=== PATIENT | male | born 1930 | race Two or more races ===

== ENCOUNTER → 2016-12-25 | Outpatient (CLI) | payer MEDICARE, OTHER ==
[~2016-12-25] MED LIST: ALLO100T PO; ASPI-664 PO; AZIL1TAB2 PO; DOCU250C58 PO; EMPA1TAB11 PO; ESOM40CA PO; LEVO100T82 PO; LINA145C PO; MAGN400T27 PO; MEMA21CA PO; METH500T PO; OMEG1CAP2 PO; SIMV20TA PO; SPIR25TA PO; TRAM50TA2 PO
--- NOTE | 2016-12-26 10:24 | RADRPT ---
PROCEDURE: Limited x-ray of both lower extremities. CLINICAL INDICATION: Bilateral leg pain. TECHNIQUE: Single frontal view of both lower extremities was obtained from the hips to the calves. COMPARISON: None. FINDINGS: There are moderate degenerative changes of both knees and both hips. Right is worse than left. IMPRESSION: 1. Moderate degenerative changes of the knees and hips with right worse than left. RPTAT: QQ .Greg Fritz MD, MD Date Time Electronically viewed and signed by .Greg Fritz MD, on 12/26/2016 10:24 .R/
== END | disposition home or self-care (01) ==
LOC: HKI 09:56
PROVIDERS: ATTEND Orthopaedic Surgery
DX: M25.561 Pain in right knee (principal); M25.562 Pain in left knee; M17.0 Bilateral primary osteoarthritis of knee
CPT/HCPCS: 77073; G0463

== ENCOUNTER 2016-12-31 11:46 | Inpatient (IN) | payer MEDICARE, OTHER ==
[2016-12-26 10:54] VITALS: BMI 33.9
[~2016-12-31] VITALS: Ht 165.1 cm; Wt 89.0 kg
[2016-12-31] VITALS (25 sets, daily range): BP systolic 117–166; BP diastolic 53–78; PULSE 85–101; RESP 11–20; Ht 165.1 cm; Wt 89.0 kg
[2016-12-31] MEDS: LACTATED RINGER'S 1,000 ML IV SCH ×4 (06:00→23:16)
[~2016-12-31 11:46] MED LIST changes: -ALLO100T PO; -ASPI-664 PO; -AZIL1TAB2 PO; +BUPIVACAINE LIPOSOME/PF 266 MG/20 ML VIAL INFIL ONE; +CEFAZOLIN 2GM/50 ML (PMX) 50 ML X1 BEFORE INCISION IVPB ONE; +CELECOXIB 400 MG PO X1 DOSE PO ONE; -DOCU250C58 PO; -EMPA1TAB11 PO; -ESOM40CA PO; +EXPAREL NOTE (BUPIVICAINE LIPOSOMAL) XX SCH; -LEVO100T82 PO; -LINA145C PO; -MAGN400T27 PO; -MEMA21CA PO; -METH500T PO; -OMEG1CAP2 PO; +PAIN COCKTAIL-CEFUROXIME IRR ONE; +PREGABALIN 300 MG PO X1 PO ONE; -SIMV20TA PO; -SPIR25TA PO; -TRAM50TA2 PO; +TRANEXAMIC ACID 920 MG in SOD CHLORIDE 0.9% 100 ML IVPB ONE; +TRANEXAMIC ACID 920 MG in SOD CHLORIDE 0.9% 90.8 ML IV ONE; +oxyCODONE (CR) 10 MG TAB [oxyCONTIN] X1 DOSE PO ONE; +traMADOL 50 MG TAB X 1 DOSE PO ONE
[2016-12-31] MEDS: traMADol 50 MG TAB PO SCH ×3 (12:00→23:11)
[2016-12-31] MEDS ORDERED: LEVO100T82 PO (12:36)
[2016-12-31] MEDS ORDERED: SIMV20TA PO (12:36)
[2016-12-31] MEDS ORDERED: OMEG1CAP2 PO (12:37)
[2016-12-31] MEDS ORDERED: ASPI-664 PO (12:37)
[2016-12-31] MEDS ORDERED: ESOM40CA PO (12:37)
[2016-12-31] MEDS ORDERED: MAGN400T27 PO (12:40)
[2016-12-31] MEDS ORDERED: AZIL1TAB2 PO (12:43)
[2016-12-31] MEDS ORDERED: DOCU250C58 PO (12:44)
[2016-12-31] MEDS ORDERED: SPIR25TA PO (12:44)
[2016-12-31] MEDS ORDERED: ALLO100T PO (12:45)
[2016-12-31] MEDS ORDERED: TRAM50TA2 PO (12:46)
[2016-12-31] MEDS ORDERED: METH500T PO (12:47)
[2016-12-31] MEDS ORDERED: MEMA21CA PO (12:47)
[2016-12-31] MEDS ORDERED: LINA145C PO (12:48)
[2016-12-31] MEDS ORDERED: EMPA1TAB11 PO (12:48)
[2016-12-31] MEDS ORDERED: TRANEXAMIC ACID 900 MG in SOD CHLORIDE 0.9% 91 ML IV ONE (13:00)
[2016-12-31] MEDS ORDERED: TRANEXAMIC ACID 900 MG in SOD CHLORIDE 0.9% 100 ML IVPB ONE (13:00)
[2016-12-31] MEDS ORDERED: POLYMYXIN B 500000 UNIT INJ ONE (13:17)
[2016-12-31] MEDS ORDERED: VANCOMYCIN 1 GM INJ ONE (13:17)
[2016-12-31] MEDS ORDERED: BACITRACIN 50000 UNITS INJ ONE (13:18)
--- NOTE | 2016-12-31 13:33 | HPN ---
Date/Time of Note Date/Time of Note DATE: 12/31/16 TIME: 13:33 Interval H&P Admission Note Pt. seen H&P reviewed: No system changes No change from H&P on 12/17/16 by DINO Burger MD December 31, 2016 13:33
[2016-12-31] MEDS ORDERED: PROPOFOL 100 ML ONE (13:53)
[2016-12-31] MEDS ORDERED: METOCLOPRAMIDE 10 MG INJ ONE (13:53)
[2016-12-31] MEDS ORDERED: CEFAZOLIN 1 GM INJ ONE ×2 (13:53→14:29)
[2016-12-31] MEDS ORDERED: FENTAnyl 50 MCG/ML VIAL ONE (13:53)
[2016-12-31] MEDS ORDERED: DEXAMETHASONE 4 MG/ML 1 ML INJ ONE (13:53)
[2016-12-31] MEDS ORDERED: ETOMIDATE 20 MG INJ ONE (13:55)
[2016-12-31] MEDS ORDERED: EPHEDrine SULFATE 50 MG/5 ML SYG ONE (14:23)
[2016-12-31] MEDS ORDERED: METOCLOPRAMIDE 10 MG INJ IV PRN (15:00)
[2016-12-31] MEDS ORDERED: DIPHENHYDRAMINE 50 MG INJ IV PRN (15:00)
[2016-12-31] MEDS ORDERED: MEPERIDINE 25 MG INJ IV PRN (15:00)
[2016-12-31] MEDS ORDERED: HYDROmorphONE (0.2 MG/ML) 10ML SYG IV PRN ×3 (15:00)
[2016-12-31] MEDS ORDERED: ONDANSETRON 4 MG INJ IV PRN ×2 (15:00→17:00)
--- NOTE | 2016-12-31 16:37 | OPR ---
Date/Time of Note Date/Time of Note DATE: 12/31/16 TIME: 16:35 Operative Report Free Text/Dictation Dictation # [id number] Procedure Date: December 31, 2016 Preoperative Diagnosis Left Knee OA Postoperative Diagnosis Same Operation Performed Left TKA Surgeon: DINO ALICEA MD licensed physical therapy assistant: JAYSHREE BENITEZ PA-C Anesthesia: general, spinal Anesthesiologist: PABLO LOMBARDO MD Tourniquet Time: 70 minutes Estimated Blood Loss: 50 - 100 ml's Specimens Bone and soft tissue Tubes/Drains Hemovac x 1 Complications: None Pt Condition Post Procedure: stable Disposition: PACU DINO ALICEA MD December 31, 2016 16:36
--- NOTE | 2016-12-31 16:40 | PN ---
Date/Time of Note Date/Time of Note DATE: 12/31/16 TIME: 16:38 Assessment/Plan Lines/Catheters IV Catheter Type (from Nrsg): Peripheral IV Assessment/Plan Assessment/Plan Stable in PACU, s/p left TKA -continue Ancef until drain removed -pain meds as needed -ASA/SCDs for DVT prophylaxis -medicine team to manage diabetic control -OOB with PT -monitor drain -check AM labs d/c pickard in AM XR of the left knee is still pending at this time Subjective 24 Hr Interval Summary Stable in PACU. Moving all extremities. Denies pain. Exam/Review of Systems Vital Signs Vitals Vital Signs Date Time Temp Pulse Resp B/P Pulse Ox O2 Delivery O2 Flow Rate FiO2 12/31/16 13:17 98.3 18 119/64 97 Exam Free Text/Dictation Hemovac: minimal Dressing dry Incision clean, dry, and intact without redness or drainage Thigh soft 5/5 Quadriceps, Tibialis Anterior, EHL, Gastroc, Soleus, Peroneals Normal sensation Palpable DT/PT, CR <2 sec No distal edema JAYSHREE BENITEZ PA-C December 31, 2016 16:40
--- NOTE | 2016-12-31 16:51 | OPR ---
DATE OF OPERATION: 12/31/2016 PREOPERATIVE DIAGNOSIS: Left knee osteoarthritis. POSTOPERATIVE DIAGNOSIS: Left knee osteoarthritis. OPERATION PERFORMED: Left total knee arthroplasty. SURGEON: Dino Kenney MD MANAGER INTRANET: KENYA Saucedo COMPONENTS USED: DePuy Attune size 7 femoral component, size 7 tibial base plate, 5 mm polyethylene insert, 38 patellar button. ANESTHESIA: Spinal plus general endotracheal intubation, plus periarticular injection. ANESTHESIOLOGIST: Dr. Melgar ESTIMATED BLOOD LOSS: 50 mL INTRAVENOUS FLUIDS: 1800 mL crystalloid. SPECIMENS: Bone and soft tissue. DRAINS: Hemovac x1. COMPLICATIONS: None. DISPOSITION: The patient tolerated the procedure well and was taken to the recovery room in stable condition. INDICATIONS: The patient is an 86-year-old gentleman who has had progressive worsening pain in the left knee. The radiographs again showed severe osteoarthritis. He has failed non-surgical means of treatment to control his pain, including activity modifications, pain medications, intra-articular injections and ambulatory assist devices. Despite these measures, he has had worsening pain, and I felt the patient would benefit from a total knee arthroplasty. The risks, benefits, and alternatives of the procedure were explained in detail to the patient. I e xplained the risks of the surgery to include but not be limited to, bleeding and possible need for b lood transfusion; infection; pain; stiffness; neurovascular injury with possible numbness, weakness, and/or paralysis anywhere from the knee down to the toes; fracture; instability; dislocation; wear and/or loosening of the prosthesis and possible need for future revision; blood clots; pulmonary emb olism; and anesthetic complications such as heart attack, stroke, GI bleed, pneumonia, and/or . Ample time was allowed for the patient to ask questions, all of which were addressed and answered. The patient understood the risks involved and wished to proceed. Informed consent was signed prior to the procedure. PROCEDURE: The patient's left knee was initialed with a marking pen in the preoperative area to keyon ntify the correct operative site. The patient was brought to the operating room and transferred fro [facility] to the operating table where a spinal anesthetic was administered. The patien t was then anesthetized and intubated. A Jackson catheter was placed. A timeout was performed to con firm that the left leg was the correct operative site. The patient was given 2 g of Ancef within one hour prior to the procedure. A tourniquet was placed on the operative proximal thigh. The operati ve knee and lower extremity were prepped and draped in the usual sterile fashion. The operative low er extremity was elevated and exsanguinated with an Esmarch tourniquet. The proximal thigh tourniqu et was inflated to 300 mmHg. The knee was flexed. A midline incision was made and carried down through the subcutaneous tissue a nd fat with sharp dissection. Limited medial and lateral flaps were raised. A median parapatellar arthrotomy approach was performed. Synovial fluid was normal in color and consistency. The patella was everted and the knee flexed. There were severe tricompartmental osteoarthritic changes noted. A medial release was performed at the joint line to the midcoronal plane. The ACL and PCL and remn ants of the menisci were excised. The OrthAlign navigation device was then pinned into place on the distal femur and set to 0 degrees of varus/valgus and 3 degrees of flexion. The distal cutting blo ck was pinned into place and the oscillating saw was used to make the cut. The tibia was subluxed anteriorly. The tibial OrthAlign navigation device was then pinned into plac e such that the proximal portion of the guide was centered over the junction of the medial and middl e third of the tibial tubercle with the proximal probe placed at the posterior aspect of the ACL tasha tprint. The guide was then set to 0 degrees varus/valgus and 3 degrees of posterior slope. The cut ting block was then pinned into place and the oscillating saw was used to make the cut. The tibia w as sized. The extension gap was checked and accommodated a 5 mm spacer block with the knee in full extension. There was no varus or valgus instability. At this point, the femur was sized with the posterior referencing guide. Two holes were drilled in 3 degrees of external rotation. The two holes were in line with the transepicondylar axis, perpendi cular to Chevy's line, and in line with the tibial cutoff jig brought up with the knee flexed 90 degrees and tensed with 2 lamina spreaders, suggesting the femoral rotation was correct. The four- in-one cutting block was pinned into place. The anterior and posterior cuts and chamfer cuts were m andre with the oscillating saw. The flexion gap was checked and accommodated the 5 mm spacer block at 90 degrees. There was no varus or valgus instability, suggesting the flexion and extension gaps wer e now equal. The central box was cut out on the femur. The tibia was drilled and punched in proper rotation. Tri al components were placed into position with a trial insert. The patella was cut from 24 mm down to 15 mm and sized. Three holes were drilled and the trial button placed in position. With all the t rials now in place, the knee was taken through range of motion and came to full extension as evidenc ed by the fact that with the foot on my abdomen and axial loading, there was no tendency for the kne e to flex. The knee was able to be flexed to 125 degrees with good patellar tracking with no latera l tilt or subluxation. At this point, I was satisfied with the overall range of motion, stability, and patellar tracking. The trials were removed. The real components were opened. Two bags of cement were mixed, one with and one without premixed antibiotic. The knee was irrigated with antibiotic saline and sucked dry. Once the cement was in a doughy stage, the real components were cemented into place. The knee was held in full extension, and the patellar component was held with a patellar clamp. All excess cemen t was removed with curettes. As the cement was hardening, the synovial/capsular layer was infiltrat ed with a mixture of 150 mg of 0.5% Bupivacaine, 8 mg of Duramorph, 300 mcg of epinephrine, 30 mg of Toradol, 100 mcg of clonidine, 750 mg of cefuroxime and 86 mL of normal saline, followed by an inje ction of 266 mg of liposomal Bupivacaine. A Hemovac drain was placed in the deep portion of the wound and brought out the anterolateral thigh. Once the cement was completely hardened, the trial liner was removed, and the real insert was open ed. The tourniquet was let down, and there was good hemostasis. The knee was then irrigated with a mixture of betadine/saline and then antibiotic saline with pulsatile lavage. The real insert was i mpacted into the tibia and reduced onto to the femur. The arthrotomy was closed with a few interrupted #1 Ethibond in a pclkob-dm-dpmwa fashion, and then closed in a watertight fashion with a running #2 Stratafix suture. Knee flexion was checked against gravity and came to 125 degrees. The subcutaneous layer was irrigated and closed with 2-0 Stratafi x, and then 3-0 Vicryl and then tricia on the skin. The wound was covered with an occlusive dressi ng, and secured with cast padding and a bias dressing. The drain was secured with 3-0 nylon. The sponge and needle counts were correct at the end of the case. The patient was then awakened, ex tubated, and taken to the recovery room in stable condition. Dictated By: DINO TRIPLETT/NTS Conf#: [id number] DID#: [id number]
[2016-12-31 16:56] LABS: HEMATOCRIT 39.8 % (42.0-52.0); HEMOGLOBIN 13.1 g/dl (14.0-18.0)
[2016-12-31] MEDS ORDERED: BISACODYL 10 MG SUPP PR PRN (17:00)
[2016-12-31] MEDS ORDERED: NA PHOSPHATE/BIPHOS 133 ML ENEMA PR PRN (17:00)
[2016-12-31] MEDS ORDERED: ASPIRIN (EC) 325 MG TAB PO ONE (17:00)
[2016-12-31] MEDS ORDERED: DIPHENHYDRAMINE 25 MG CAP PO PRN (17:00)
[2016-12-31] MEDS ORDERED: HYDROmorphONE 1 MG/ML SYG IV PRN (17:00)
[2016-12-31] MEDS ORDERED: HYDROCODONE/APAP (5/325) TAB PO PRN (17:00)
[2016-12-31] MEDS ORDERED: NACL 0.9% 3 ML SYG IV SCH (17:00)
[2016-12-31] MEDS: CEFAZOLIN 2 GM/50 ML (PMX) 50 ML IVPB SCH (17:17)
--- NOTE | 2016-12-31 17:20 | RADRPT ---
PROCEDURE: XR Knee. CLINICAL INDICATION: Status post knee replacement TECHNIQUE: AP and lateral view of the left knee were obtained. The images reviewed on a PACS work station. COMPARISON: August 14, 2016 FINDINGS: Complete left knee replacement is identified. Prosthetic components are in appropriate position and alignment. No fractures or destructive lesions are observed. Surgical drain is seen in the knee. Soft tissue air is procedural in nature. IMPRESSION: Status post left knee replacement. Prosthetic components are in appropriate position and alignment. RPTAT: AA .Maurice Dunbar MD, MD Date Time Electronically viewed and signed by .Maurice Dunbar MD, MD on 12/31/2016 17:20 .P/
[2016-12-31 17:26] LABS: CREATININE 1.12 mg/dl (0.61-1.24)
[2016-12-31] MEDS: PANTOPRAZOLE (EC) 40 MG TAB PO SCH (17:46)
--- NOTE | 2016-12-31 18:59 | PREOPHP ---
DATE OF ADMISSION: 12/31/2016 TYPE OF CONSULTATION: Medical. Thank you, Dr. Kenney, for asking me to participate in medical management of this patient. REASON FOR CONSULTATION: To manage the patient's hypertension, hyperlipidemia, hypothyroidism, pre diabetes. HISTORY OF PRESENT ILLNESS: This 86-year-old man is now postop a left total knee arthroplasty by Dr Sanaz Kenney. The patient is sleeping but arouses easily to verbal stimuli and follows commands. The p josé manuel is in the room and his daughter is with him. The patient has a note on the chart from his in ternist, Dr. Nasim Dowd, which details the patient's past medical history. The patient denies a ny chest pain or shortness of breath. According to the daughter, he does snore and may have a histo ry of sleep apnea. PAST MEDICAL HISTORY: Remarkable for hypertension, gastroesophageal reflux disease, benign prostati c hypertrophy, hyperlipidemia, hypothyroidism. PAST SURGICAL HISTORY: Transurethral resection of the prostate gland. CURRENT MEDICATIONS: Include the followin. Simvastatin 20 mg a day. 2. Levothyroxine 100 mcg a day. 3. Nexium 40 mg a day. 4. Lovaza 2 grams twice a day. 5. Aspirin 81 mg a day, which was discontinued preoperatively. 6. Magnesium oxide 400 mg twice a day. 7. Astelin one inhalation 2 times a day. 8. Edarbyclor 40/25, a half tablet once a day. 9. Spironolactone 25 mg every other day. 10. Docusate sodium 250 mg twice a day. 11. Allopurinol 100 mg a day. 12. Tramadol 50 mg every 4 hours as needed for pain. 13. Robaxin 500 mg at bedtime as needed.. 14. Namenda XR 21 mg a day. 15. Synjardy 12.5/500 twice a day. 9. Linzess 140 mg once a day. ALLERGIES: NO KNOWN DRUG ALLERGIES. PHYSICAL EXAMINATION: GENERAL: At this time reveals a well-developed man in no apparent distress. He is sleeping but margo uses easily to verbal stimuli and follows simple commands. VITAL SIGNS: Temperature 98.5, pulse of 90, respirations 16, blood pressure 142/76, O2 saturation 9 6% on room air. HEENT: Head normocephalic. Eyes: Extraocular muscles intact. NOSE AND MOUTH: Normal. NECK: Supple. No neck vein distention. LUNGS: Clear to auscultation. HEART: Regular rhythm. No murmurs, gallops or rubs. ABDOMEN: Soft, nontender, no masses or megaly. EXTREMITIES: No peripheral edema. IMPRESSION: This patient is stable after surgery today. His blood pressure is slightly elevated bu t it has come down some. He seems comfortable. I will manage the patient's hypertension, diabetes mellitus, hypothyroidism, hyperlipidemia. PLAN: 1. Resume some routine medications. 2. Check labs in the morning. 3. Accu-Cheks with sliding scale of Humalog insulin coverage. 4. Postop total knee replacement protocol. 5. I will follow the patient along with you. Dictated By: MARCELO TAPIA MD, ND/ELVER Conf#: [id number] DID#: [id number]
[2016-12-31] MEDS ORDERED: DEXTROSE 50% 50 ML SYRINGE IV PRN ×2 (19:30)
[2016-12-31] MEDS ORDERED: GLUCAGON 1 MG INJ IM PRN (19:30)
[2016-12-31] MEDS ORDERED: GLUCOSE GEL 15 GRAM TUBE PO PRN ×2 (19:30)
[2016-12-31] MEDS ORDERED: GLUCOSE GEL 15 GRAM TUBE BUCCAL PRN (19:30)
[2016-12-31] MEDS ORDERED: TRANEXAMIC ACID 890 MG in SOD CHLORIDE 0.9% 100 ML IVPB ONE ×2 (20:00→23:00)
[2016-12-31] MEDS: DOCUSATE SODIUM 100 MG CAP PO SCH (20:35)
[2016-12-31] MEDS: GABAPENTIN 100 MG CAP PO SCH (20:36)
[2016-12-31] MEDS: ATORVASTATIN 10 MG TAB PO SCH (20:36)
[2016-12-31] MEDS: INSULIN ASPART [NOVOLOG] 3 ML PEN SC SCH (20:42)
[2017-01-01] MEDS: CEFAZOLIN 2 GM/50 ML (PMX) 50 ML IVPB SCH ×2 (01:10→09:23)
[2017-01-01 05:16] LABS: HEMATOCRIT 38.3 % (42.0-52.0); HEMOGLOBIN 12.8 g/dl (14.0-18.0)
[2017-01-01 05:24] LABS: POTASSIUM 4.5 mmol/L (3.5-5.1)
[2017-01-01 05:26] LABS: CREATININE 1.08 mg/dl (0.61-1.24)
[2017-01-01] MEDS: PANTOPRAZOLE (EC) 40 MG TAB PO SCH ×2 (06:11→17:58)
[2017-01-01] MEDS: LEVOTHYROXINE 100 MCG TAB PO SCH (06:11)
[2017-01-01] MEDS: traMADol 50 MG TAB PO SCH ×4 (06:12→23:28)
[2017-01-01 06:38] LABS: ADD UMIC YES; URINE BILIRUBIN (Dip) NEGATIVE (NEGATIVE); URINE BLOOD (Dip) 3+ (NEGATIVE); URINE COLOR LT. YELLOW (YELLOW); URINE KETONES (Dip) NEGATIVE (NEGATIVE); URINE LEUKOCYTE ESTERASE (Dip) NEGATIVE (NEGATIVE); URINE NITRITE (Dip) NEGATIVE (NEGATIVE); URINE TOTAL PROTEIN (Dip) 1+ (NEGATIVE); URINE UROBILINOGEN (Dip) 0.2 E.U./dL (0.1-1.0)
[2017-01-01 07:00] VITALS: BP 126/60; RESP 18
[2017-01-01] MEDS: INSULIN ASPART [NOVOLOG] 3 ML PEN SC SCH ×4 (07:50→20:57)
--- NOTE | 2017-01-01 08:29 | CONS ---
Date/Time of Note Date/Time of Note DATE: 01/01/17 TIME: 08:24 Assessment/Plan Assessment/Plan Chief Complaint/Hosp Course 1. he is 1 day post op a L TKA . He is doing well . 2. continue current medication and PT as tolerated . Problems: Consultation Date/Type/Reason Admit Date/Time December 31, 2016 at 18:10 Initial Consult Date 24 HR Interval Summary Free Text/Dictation He is 1 day post op L TKA . He is awake and responsive . Constitutional: improved, no complaints Exam/Review of Systems Vital Signs Vitals Vital Signs Date Time Temp Pulse Resp B/P Pulse Ox O2 Delivery O2 Flow Rate FiO2 01/01/17 07:00 97.9 89 18 126/60 95 12/31/16 21:00 Nasal Cannula 5.0 Intake and Output 12/31/16 12/31/16 01/01/17 15:00 23:00 07:00 Intake Total 1700 ml 108.9 ml 2128.9 ml Output Total 275 ml 740 ml Balance 1700 ml -166.1 ml 1388.9 ml Exam Constitutional: alert, oriented Respiratory: clear to auscultation, normal air movement Cardiovascular: nl pulses, regular rate and rhythm Gastrointestinal: soft Musculoskeletal: nl extremities to inspection Results Result Diagram: 01/01/17 0429 01/01/17 0424 Results 24 hrs Laboratory Tests Test 12/31/16 16:48 12/31/16 18:50 12/31/16 20:40 01/01/17 04:05 Hemoglobin 13.1 L Hematocrit 39.8 L Sodium Level 141 Potassium Level 4.0 Chloride Level 103 Carbon Dioxide Level 25 Anion Gap 17 H Blood Urea Nitrogen 26 H Creatinine 1.12 Glucose Level 175 Calcium Level 9.0 Bedside Glucose 165 176 Urine Color LT. YELLOW Urine Clarity CLEAR Urine pH 5.5 Urine Specific [place] >=1.030 H Urine Ketones NEGATIVE Urine Nitrite NEGATIVE Urine Bilirubin NEGATIVE Urine Urobilinogen 0.2 E.U./dL Urine Leukocyte Esterase NEGATIVE Urine Microscopic RBC 5-10 Urine Microscopic WBC 0-2 Urine Hemoglobin 3+ H Urine Glucose 0.1% H Urine Total Protein 1+ H Test 01/01/17 04:24 01/01/17 04:29 01/01/17 08:18 Sodium Level 140 Potassium Level 4.5 Chloride Level 100 Carbon Dioxide Level 25 Anion Gap 20 H Blood Urea Nitrogen 29 H Creatinine 1.08 Glucose Level 198 Calcium Level 9.0 Magnesium Level 1.7 Hemoglobin 12.8 L Hematocrit 38.3 L Bedside Glucose 149 Medications Medications Current Medications Allopurinol (Zyloprim) 100 mg DAILY PO ; Start 01/01/17 at 09:00 Miscellaneous Information 0.5 tab DAILY PO ; Start 01/01/17 at 09:00; Status UNV Miscellaneous Information 21 mg DAILY PO ; Start 01/01/17 at 09:00; Status UNV Atorvastatin Calcium 10 mg 10 mg DAILY@21 PO Last administered on 12/31/16 20: 36; Admin Dose 10 MG; Start 12/31/16 at 21:00 Lactated Ringer's (Lr) 1,000 ml @ 125 mls/hr Q8H IV Last administered on 23:16; Admin Dose 125 MLS/HR; Start 12/31/16 at 16:31 Tramadol HCl (Ultram) 50 mg Q6 PO Last administered on 01/01/17 06:12; Admin Dose 50 MG; Start 12/31/16 at 12:00; Stop 01/03/17 at 11:59 Acetaminophen/ Hydrocodone Bitart ([place] (5/325)) 1 tab Q4H PRN PO PAIN LEVEL 1 -3; Start 12/31/16 at 17:00 Acetaminophen/ Hydrocodone Bitart ([place] (5/325)) 2 tab Q4H PRN PO PAIN LEVEL 4 -7; Start 12/31/16 at 17:00 Hydromorphone HCl 1 mg 1 mg Q3H PRN IV PAIN LEVEL 8-10; Start 12/31/16 at 17:00 Cefazolin Sodium/ Dextrose (Ancef 2 Gm/50 ml (Pmx)) 50 ml @ 100 mls/hr Q8H IVPB Last administered on 01/01/17 01:10; Admin Dose 100 MLS/HR; Start at 17:00; Stop 01/01/17 at 09:29 Ondansetron HCl (Zofran Inj) 4 mg Q6H PRN IV NAUSEA AND/OR VOMITING; Start 12/31 at 17:00 Bisacodyl (Dulcolax Supp) 10 mg Q12H PRN CO CONSTIPATION; Start 12/31/16 at 17: 00 Magnesium Hydroxide (Milk Of Mag) 30 ml BID PRN PO CONSTIPATION; Start 12/31/16 at 17:00 Sodium Biphosphate/ Sodium Phosphate (Fleet Enema) 133 ml DAILY PRN CO CONSTIPATION; Start 12/31/16 at 17:00 Docusate Sodium (Colace) 100 mg BID PO Last administered on 12/31/16 20:35; Admin Dose 100 MG; Start 12/31/16 at 21:00 Diphenhydramine HCl (Benadryl) 25 mg Q6H PRN PO PRURITUS; Start 12/31/16 at 17: 00 Aspirin (Ecotrin) 325 mg BID PO ; Start 01/01/17 at 09:00 Pantoprazole (Protonix Tab) 40 mg BID@18 PO Last administered on 01/01/17 06:11; Admin Dose 40 MG; Start 12/31/16 at 18:00 Gabapentin (Neurontin) 100 mg TID PO Last administered on 12/31/16 20:36; Admin Dose 100 MG; Start 12/31/16 at 21:00; Stop 01/07/17 at 20:59 Miscellaneous Information 1 ea NOTE XX ; Start 12/31/16 at 19:30 Glucose (Glutose) 15 gm Q15M PRN PO DECREASED GLUCOSE; Start 12/31/16 at 19:30 Glucose (Glutose) 22.5 gm Q15M PRN PO DECREASED GLUCOSE; Start 12/31/16 at 19:30 Dextrose (D50w Syringe) 25 ml Q15M PRN IV DECREASED GLUCOSE; Start 12/31/16 at 19:30 Dextrose (D50w Syringe) 50 ml Q15M PRN IV DECREASED GLUCOSE; Start 12/31/16 at 19:30 Glucagon (Glucagen) 1 mg Q15M PRN IM DECREASED GLUCOSE; Start 12/31/16 at 19:30 Glucose (Glutose) 15 gm Q15M PRN BUCCAL DECREASED GLUCOSE; Start 12/31/16 at 19: 30 MARCELO TAPIA MD January 01, 2017 08:29
--- NOTE | 2017-01-01 08:46 | PN ---
Date/Time of Note Date/Time of Note DATE: 01/01/17 TIME: 08:45 Assessment/Plan Lines/Catheters IV Catheter Type (from Nrsg): Peripheral IV Jackson in Place (from Nrsg): No Assessment/Plan Assessment/Plan Stable POD #1, s/p left TKA -d/c abx -pain meds as needed -ASA/SCDs for DVT prophylaxis -OOB with PT -check AM labs -drain removed -d/c planning. Will likely go home upon discharge Subjective 24 Hr Interval Summary No acute overnight events. Denies any pain. Did not start PT yesterday. VSS, afebrile. Will likely go home upon discharge. Exam/Review of Systems Vital Signs Vitals Vital Signs Date Time Temp Pulse Resp B/P Pulse Ox O2 Delivery O2 Flow Rate FiO2 01/01/17 07:00 97.9 89 18 126/60 95 12/31/16 21:00 Nasal Cannula 5.0 Intake and Output 12/31/16 12/31/16 01/01/17 15:00 23:00 07:00 Intake Total 1700 ml 108.9 ml 2128.9 ml Output Total 275 ml 740 ml Balance 1700 ml -166.1 ml 1388.9 ml Exam Free Text/Dictation Hemovac: 215cc Dressing dry Incision clean, dry, and intact without redness or drainage Thigh soft 5/5 Quadriceps, Tibialis Anterior, EHL, Gastroc, Soleus, Peroneals Normal sensation Palpable DT/PT, CR <2 sec No distal edema Results Result Diagram: 01/01/17 0429 01/01/17 0424 JAYSHREE BENITEZ PA-C January 01, 2017 08:46
[2017-01-01] MEDS ORDERED: [UNRECOGNIZED DRUG - OTHER] PO SCH (09:00)
[2017-01-01] MEDS: GABAPENTIN 100 MG CAP PO SCH ×3 (09:22→20:19)
[2017-01-01] MEDS: MEMANTINE 10 MG TAB PO SCH ×2 (09:22→20:19)
[2017-01-01] MEDS: ALLOPURINOL 100 MG TAB PO SCH (09:22)
[2017-01-01] MEDS: DOCUSATE SODIUM 100 MG CAP PO SCH ×2 (09:22→20:19)
[2017-01-01] MEDS: ASPIRIN (EC) 325 MG TAB PO SCH ×2 (09:22→20:19)
[2017-01-01] MEDS: metFORMIN 500 MG TAB PO SCH ×2 (09:26→17:59)
[2017-01-01] MEDS: LACTATED RINGER'S 1,000 ML IV SCH ×2 (12:26→16:31)
[2017-01-01] MEDS: CHLORTHALIDONE 25 MG TAB PO SCH (12:27)
[2017-01-01] MEDS: LOSARTAN 25 MG TAB PO SCH (12:27)
--- NOTE | 2017-01-01 14:03 | PN ---
Date/Time of Note Date/Time of Note DATE: 01/01/17 TIME: 14:00 Assessment/Plan VTE Prophylaxis VTE Prophylaxis Intervention: ambulation Lines/Catheters IV Catheter Type (from Nrsg): Peripheral IV Urinary Cath still in place: No Subjective 24 Hr Interval Summary Free Text/Dictation Anesthesia note: A 86 year male s/p left TKA under GA and spinal pod#1 is doing fine.No N/V, itching, back pain or, headache, irritation. V/S stable, back is clean. Exam/Review of Systems Vital Signs Vitals Vital Signs Date Time Temp Pulse Resp B/P Pulse Ox O2 Delivery O2 Flow Rate FiO2 01/01/17 08:20 Nasal Cannula 4.0 01/01/17 07:00 97.9 89 18 126/60 95 Intake and Output 12/31/16 12/31/16 01/01/17 14:59 22:59 06:59 Intake Total 1700 ml 108.9 ml 2128.9 ml Output Total 275 ml 740 ml Balance 1700 ml -166.1 ml 1388.9 ml Results Result Diagram: 01/01/17 0429 01/01/17 0424 Results 24 hrs Laboratory Tests Test 12/31/16 16:48 12/31/16 18:50 12/31/16 20:40 01/01/17 04:05 Hemoglobin 13.1 L Hematocrit 39.8 L Sodium Level 141 Potassium Level 4.0 Chloride Level 103 Carbon Dioxide Level 25 Anion Gap 17 H Blood Urea Nitrogen 26 H Creatinine 1.12 Glucose Level 175 Calcium Level 9.0 Bedside Glucose 165 176 Urine Color LT. YELLOW Urine Clarity CLEAR Urine pH 5.5 Urine Specific [place] >=1.030 H Urine Ketones NEGATIVE Urine Nitrite NEGATIVE Urine Bilirubin NEGATIVE Urine Urobilinogen 0.2 E.U./dL Urine Leukocyte Esterase NEGATIVE Urine Microscopic RBC 5-10 Urine Microscopic WBC 0-2 Urine Hemoglobin 3+ H Urine Glucose 0.1% H Urine Total Protein 1+ H Test 01/01/17 04:24 01/01/17 04:29 01/01/17 08:18 01/01/17 12:07 Sodium Level 140 Potassium Level 4.5 Chloride Level 100 Carbon Dioxide Level 25 Anion Gap 20 H Blood Urea Nitrogen 29 H Creatinine 1.08 Glucose Level 198 Calcium Level 9.0 Magnesium Level 1.7 Hemoglobin 12.8 L Hematocrit 38.3 L Bedside Glucose 149 188 Medications Medications Current Medications Allopurinol (Zyloprim) 100 mg DAILY PO Last administered on 01/01/17 09:22; Admin Dose 100 MG; Start 01/01/17 at 09:00 Memantine (Namenda) 10 mg BID PO Last administered on 01/01/17 09:22; Admin Dose 10 MG; Start 01/01/17 at 09:00 Atorvastatin Calcium 10 mg 10 mg DAILY@21 PO Last administered on 12/31/16 20: 36; Admin Dose 10 MG; Start 12/31/16 at 21:00 Lactated Ringer's (Lr) 1,000 ml @ 125 mls/hr Q8H IV Last administered on 12:26; Admin Dose 125 MLS/HR; Start 12/31/16 at 16:31 Tramadol HCl (Ultram) 50 mg Q6 PO Last administered on 01/01/17 12:27; Admin Dose 50 MG; Start 12/31/16 at 12:00; Stop 01/03/17 at 11:59 Acetaminophen/ Hydrocodone Bitart ([place] (5/325)) 1 tab Q4H PRN PO PAIN LEVEL 1 -3; Start 12/31/16 at 17:00 Acetaminophen/ Hydrocodone Bitart ([place] (5/325)) 2 tab Q4H PRN PO PAIN LEVEL 4 -7; Start 12/31/16 at 17:00 Hydromorphone HCl (Dilaudid) 1 mg Q3H PRN IV PAIN LEVEL 8-10; Start 12/31/16 at 17:00 Ondansetron HCl (Zofran Inj) 4 mg Q6H PRN IV NAUSEA AND/OR VOMITING; Start 12/31 at 17:00 Bisacodyl (Dulcolax Supp) 10 mg Q12H PRN [place] CONSTIPATION; Start 12/31/16 at 17: 00 Magnesium Hydroxide (Milk Of Mag) 30 ml BID PRN PO CONSTIPATION; Start 12/31/16 at 17:00 Sodium Biphosphate/ Sodium Phosphate (Fleet Enema) 133 ml DAILY PRN [place] CONSTIPATION; Start 12/31/16 at 17:00 Docusate Sodium (Colace) 100 mg BID PO Last administered on 01/01/17 09:22; Admin Dose 100 MG; Start 12/31/16 at 21:00 Diphenhydramine HCl (Benadryl) 25 mg Q6H PRN PO PRURITUS; Start 12/31/16 at 17: 00 Aspirin (Ecotrin) 325 mg BID PO Last administered on 01/01/17 09:22; Admin Dose 325 MG; Start 01/01/17 at 09:00 Pantoprazole (Protonix Tab) 40 mg BID@06,18 PO Last administered on 01/01/17 06:11; Admin Dose 40 MG; Start 12/31/16 at 18:00 Gabapentin (Neurontin) 100 mg TID PO Last administered on 01/01/17 12:26; Admin Dose 100 MG; Start 12/31/16 at 21:00; Stop 01/07/17 at 20:59 Miscellaneous Information 1 ea NOTE XX ; Start 12/31/16 at 19:30 Glucose (Glutose) 15 gm Q15M PRN PO DECREASED GLUCOSE; Start 12/31/16 at 19:30 Glucose (Glutose) 22.5 gm Q15M PRN PO DECREASED GLUCOSE; Start 12/31/16 at 19:30 Dextrose (D50w Syringe) 25 ml Q15M PRN IV DECREASED GLUCOSE; Start 12/31/16 at 19:30 Dextrose (D50w Syringe) 50 ml Q15M PRN IV DECREASED GLUCOSE; Start 12/31/16 at 19:30 Glucagon (Glucagen) 1 mg Q15M PRN IM DECREASED GLUCOSE; Start 12/31/16 at 19:30 Glucose (Glutose) 15 gm Q15M PRN BUCCAL DECREASED GLUCOSE; Start 12/31/16 at 19: 30 Chlorthalidone (Hygroton) 12.5 mg DAILY PO Last administered on 01/01/17 12:27 ; Admin Dose 12.5 MG; Start 01/01/17 at 11:00 Losartan Potassium (Cozaar) 25 mg DAILY PO Last administered on 01/01/17 12:27 ; Admin Dose 25 MG; Start 01/01/17 at 11:00 PABLO LOMBARDO MD January 01, 2017 14:03
[2017-01-01] MEDS: MAGNESIUM HYDROXIDE 30ML CUP PO PRN (15:21)
[2017-01-01 19:55] VITALS: BP 125/70; PULSE 70; RESP 18
[2017-01-01] MEDS: ATORVASTATIN 10 MG TAB PO SCH (20:19)
[2017-01-02] MEDS: LACTATED RINGER'S 1,000 ML IV SCH ×3 (01:36→22:04)
[2017-01-02 05:33] LABS: HEMATOCRIT 36.4 % (42.0-52.0); HEMOGLOBIN 12.1 g/dl (14.0-18.0)
[2017-01-02] MEDS: PANTOPRAZOLE (EC) 40 MG TAB PO SCH ×2 (05:56→18:06)
[2017-01-02] MEDS: traMADol 50 MG TAB PO SCH ×3 (05:57→18:06)
[2017-01-02] MEDS: LEVOTHYROXINE 100 MCG TAB PO SCH (05:57)
[2017-01-02 06:04] LABS: CALCIUM 9.5 mg/dl (8.4-10.2); CREATININE 0.87 mg/dl (0.61-1.24); POTASSIUM 4.9 mmol/L (3.5-5.1)
[2017-01-02 07:26] VITALS: BP 132/62; RESP 20
[2017-01-02] MEDS: INSULIN ASPART [NOVOLOG] 3 ML PEN SC SCH ×4 (07:50→21:00)
[2017-01-02] MEDS: DOCUSATE SODIUM 100 MG CAP PO SCH ×2 (08:38→21:09)
[2017-01-02] MEDS: ASPIRIN (EC) 325 MG TAB PO SCH ×2 (08:38→21:09)
[2017-01-02] MEDS: metFORMIN 500 MG TAB PO SCH ×2 (08:38→18:05)
[2017-01-02] MEDS: LOSARTAN 25 MG TAB PO SCH (08:39)
[2017-01-02] MEDS: GABAPENTIN 100 MG CAP PO SCH ×3 (08:39→21:09)
[2017-01-02] MEDS: ALLOPURINOL 100 MG TAB PO SCH (08:39)
[2017-01-02] MEDS: CHLORTHALIDONE 25 MG TAB PO SCH (08:39)
[2017-01-02] MEDS: MEMANTINE 10 MG TAB PO SCH ×2 (08:40→21:09)
--- NOTE | 2017-01-02 09:47 | PDOCDIS ---
Discharge Instructions DIAGNOSIS Discharge Diagnosis: s/p left TKA CONDITION Patient Condition: Good HOME CARE INSTRUCTIONS: Diet Instructions: Regular ACTIVITY: Activity Restrictions: Slowly Increase Activity Rest between Activity Avoid heavy lifting Do not operate Machinery Do not operate Power Tool Avoid Heavy Housework Keep Limb Elevated Bathing Restrictions: Shower FOLLOW UP/APPOINTMENTS Appointments follow up in the office on 01/10/17 OTHER ORDERS: Other Orders: S/P TKA Physical Therapy: Three times per week at home x 2 weeks Daily in Rehab/SNF WB STATUS: WBAT 1. Strengthening exercises for both upper and un-operated lower extremities. 2. Gait training with front wheeled walker 3. Active range of motion exercises to operative knee. 4. When not working on knee range of motion exercises, distal towel roll under operative ankle/distal calf to promote full extension. 5. DO NOT PUT ANYTHING BEHIND OPERATIVE KNEE!!! 6. Quadriceps and hamstring strengthening. 7. May switch to cane in contra lateral hand 6 weeks after surgery. 8. Physical Therapy can open case if nursing is not available. 9. Use Ice Machine as instructed from date of surgery while at rest 3X/day. 10. Patient requires mobile SCDs to reduce risk of developing DVT following TKA. Patient will use the mobile SCDs for 30 days postoperatively. Bathing assistance by home health aide twice weekly if Medicare patient. Occupational Therapy: Evaluation for assistive devices and ADL training. Wound Care: Keep incision dry & covered with Tegaderm until first visit with Dr. Kenney Anticoagulation Orders: Enteric Coated Aspirin 325 mg po bid x 6 weeks from date of surgery Follow-up:Call for an appointment with Dr. Kenney in 1 week after discharged from hospital at DME Orders: BREN, 3-in-1 Commode, Polar ice machine, Mobile SCDs JAYSHREE BENITEZ PA-C January 02, 2017 09:47
[2017-01-02] MEDS ORDERED: HYDR-905 PO (09:50)
[2017-01-02] MEDS ORDERED: ASPI325T32 PO (09:50)
[2017-01-02] MEDS ORDERED: TRAM50TA2 PO (09:50)
--- NOTE | 2017-01-02 10:13 | CONS ---
Date/Time of Note Date/Time of Note DATE: 01/02/17 TIME: 10:12 Assessment/Plan Assessment/Plan Chief Complaint/Hosp Course 1. he is 2 days post op a L TKA . He is doing well . 2. continue current medication and PT as tolerated . Problems: Consultation Date/Type/Reason Admit Date/Time December 31, 2016 at 18:10 Type of Consultation: medicine 24 HR Interval Summary Constitutional: improved, no complaints Exam/Review of Systems Vital Signs Vitals Vital Signs Date Time Temp Pulse Resp B/P Pulse Ox O2 Delivery O2 Flow Rate FiO2 01/02/17 07:26 98.4 69 20 132/62 95 01/01/17 19:55 Room Air 01/01/17 08:20 4.0 Intake and Output 01/01/17 01/01/17 01/02/17 15:00 23:00 07:00 Intake Total 400 ml 2060 ml 1850 ml Output Total 900 ml 1200 ml Balance 400 ml 1160 ml 650 ml Exam Constitutional: alert, oriented, well developed Respiratory: clear to auscultation, normal air movement Cardiovascular: regular rate and rhythm Musculoskeletal: nl extremities to inspection Results Result Diagram: 01/02/17 0438 01/02/17 0438 Results 24 hrs Laboratory Tests Test 01/01/17 12:07 01/01/17 17:49 01/01/17 20:52 01/02/17 04:38 Bedside Glucose 188 166 158 Hemoglobin 12.1 L Hematocrit 36.4 L Sodium Level 134 L Potassium Level 4.9 Chloride Level 101 Carbon Dioxide Level 27 Anion Gap 11 # Blood Urea Nitrogen 25 H Creatinine 0.87 Glucose Level 130 # Calcium Level 9.5 Test 01/02/17 07:47 Bedside Glucose 110 Medications Medications Current Medications Allopurinol (Zyloprim) 100 mg DAILY PO Last administered on 01/02/17 08:39; Admin Dose 100 MG; Start 01/01/17 at 09:00 Memantine (Namenda) 10 mg BID PO Last administered on 01/02/17 08:40; Admin Dose 10 MG; Start 01/01/17 at 09:00 Atorvastatin Calcium 10 mg 10 mg DAILY@21 PO Last administered on 01/01/17 20: 19; Admin Dose 10 MG; Start 12/31/16 at 21:00 Lactated Ringer's (Lr) 1,000 ml @ 100 mls/hr Q10H IV Last administered on 01/02 01:36; Admin Dose 100 MLS/HR; Start 12/31/16 at 16:31 Tramadol HCl (Ultram) 50 mg Q6 PO Last administered on 01/02/17 05:57; Admin Dose 50 MG; Start 12/31/16 at 12:00; Stop 01/03/17 at 11:59 Acetaminophen/ Hydrocodone Bitart ([place] (5/325)) 1 tab Q4H PRN PO PAIN LEVEL 1 -3; Start 12/31/16 at 17:00 Acetaminophen/ Hydrocodone Bitart ([place] (5/325)) 2 tab Q4H PRN PO PAIN LEVEL 4 -7; Start 12/31/16 at 17:00 Hydromorphone HCl (Dilaudid) 1 mg Q3H PRN IV PAIN LEVEL 8-10; Start 12/31/16 at 17:00 Ondansetron HCl (Zofran Inj) 4 mg Q6H PRN IV NAUSEA AND/OR VOMITING; Start 12/31 at 17:00 Bisacodyl (Dulcolax Supp) 10 mg Q12H PRN [place] CONSTIPATION; Start 12/31/16 at 17: 00 Magnesium Hydroxide (Milk Of Mag) 30 ml BID PRN PO CONSTIPATION Last administered on 01/01/17 15:21; Admin Dose 30 ML; Start 12/31/16 at 17:00 Sodium Biphosphate/ Sodium Phosphate (Fleet Enema) 133 ml DAILY PRN [place] CONSTIPATION; Start 12/31/16 at 17:00 Docusate Sodium (Colace) 100 mg BID PO Last administered on 01/02/17 08:38; Admin Dose 100 MG; Start 12/31/16 at 21:00 Diphenhydramine HCl (Benadryl) 25 mg Q6H PRN PO PRURITUS; Start 12/31/16 at 17: 00 Aspirin (Ecotrin) 325 mg BID PO Last administered on 01/02/17 08:38; Admin Dose 325 MG; Start 01/01/17 at 09:00 Pantoprazole (Protonix Tab) 40 mg BID@06,18 PO Last administered on 01/02/17 05:56; Admin Dose 40 MG; Start 12/31/16 at 18:00 Gabapentin (Neurontin) 100 mg TID PO Last administered on 01/02/17 08:39; Admin Dose 100 MG; Start 12/31/16 at 21:00; Stop 01/07/17 at 20:59 Miscellaneous Information 1 ea NOTE XX ; Start 12/31/16 at 19:30 Glucose (Glutose) 15 gm Q15M PRN PO DECREASED GLUCOSE; Start 12/31/16 at 19:30 Glucose (Glutose) 22.5 gm Q15M PRN PO DECREASED GLUCOSE; Start 12/31/16 at 19:30 Dextrose (D50w Syringe) 25 ml Q15M PRN IV DECREASED GLUCOSE; Start 12/31/16 at 19:30 Dextrose (D50w Syringe) 50 ml Q15M PRN IV DECREASED GLUCOSE; Start 12/31/16 at 19:30 Glucagon (Glucagen) 1 mg Q15M PRN IM DECREASED GLUCOSE; Start 12/31/16 at 19:30 Glucose (Glutose) 15 gm Q15M PRN BUCCAL DECREASED GLUCOSE; Start 12/31/16 at 19: 30 Chlorthalidone (Hygroton) 12.5 mg DAILY PO Last administered on 01/02/17 08:39 ; Admin Dose 12.5 MG; Start 01/01/17 at 11:00 Losartan Potassium (Cozaar) 25 mg DAILY PO Last administered on 01/02/17 08:39 ; Admin Dose 25 MG; Start 01/01/17 at 11:00 MARCELO TAPIA MD January 02, 2017 10:13
[2017-01-02] MEDS: HYDROCODONE/APAP (5/325) TAB PO PRN (10:40)
[2017-01-02] MEDS: MAGNESIUM HYDROXIDE 30ML CUP PO PRN (14:56)
--- NOTE | 2017-01-02 15:56 | PN ---
Date/Time of Note Date/Time of Note DATE: 01/02/17 TIME: 15:55 Assessment/Plan Lines/Catheters IV Catheter Type (from Nrsg): Saline Lock Jackson in Place (from Nrsg): No Assessment/Plan Assessment/Plan Stable POD #2, s/p lef TKA -pain meds as needed -ASA/SCDs for DVT prophylaxis -OOB with PT -check AM labs -dressing changed -will likely discharge home tomorrow Subjective 24 Hr Interval Summary No acute overnight events. Denies significant pain. Progressing well with PT. VSS, afebrile. Will plan to go home tomorrow. Exam/Review of Systems Vital Signs Vitals Vital Signs Date Time Temp Pulse Resp B/P Pulse Ox O2 Delivery O2 Flow Rate FiO2 01/02/17 07:26 98.4 69 20 132/62 95 01/01/17 19:55 Room Air 01/01/17 08:20 4.0 Intake and Output 01/01/17 01/01/17 01/02/17 15:00 23:00 07:00 Intake Total 400 ml 2060 ml 1850 ml Output Total 900 ml 1200 ml Balance 400 ml 1160 ml 650 ml Results Result Diagram: 01/02/17 0438 01/02/17 0438 JAYSHREE BENITEZ PA-C January 02, 2017 15:56
[2017-01-02 20:29] VITALS: BP 135/67; RESP 18
[2017-01-02] MEDS: ATORVASTATIN 10 MG TAB PO SCH (21:09)
[2017-01-03] MEDS: HYDROCODONE/APAP (5/325) TAB PO PRN (04:24)
[2017-01-03] MEDS: PANTOPRAZOLE (EC) 40 MG TAB PO SCH ×2 (05:46→17:40)
[2017-01-03] MEDS: LEVOTHYROXINE 100 MCG TAB PO SCH (05:46)
[2017-01-03] MEDS: traMADol 50 MG TAB PO SCH ×2 (05:46)
[2017-01-03 05:58] LABS: HEMATOCRIT 36.9 % (42.0-52.0); HEMOGLOBIN 12.2 g/dl (14.0-18.0)
[2017-01-03 06:03] LABS: CALCIUM 9.3 mg/dl (8.4-10.2); CREATININE 0.85 mg/dl (0.61-1.24); POTASSIUM 4.6 mmol/L (3.5-5.1)
[2017-01-03] MEDS: INSULIN ASPART [NOVOLOG] 3 ML PEN SC SCH ×4 (07:50→20:49)
[2017-01-03] MEDS: LACTATED RINGER'S 1,000 ML IV SCH (08:04)
--- NOTE | 2017-01-03 08:04 | PN ---
Date/Time of Note Date/Time of Note DATE: 01/03/17 TIME: 08:02 Assessment/Plan Lines/Catheters IV Catheter Type (from Nrsg): Saline Lock Jackson in Place (from Nrsg): No Assessment/Plan Assessment/Plan POD #3, s/p left TKA -pain meds as needed -ASA/SCDs for DVT prophylaxis -OOB with PT -dressing changed -discharge home today -follow up in the office in 1 week Subjective 24 Hr Interval Summary No acute overnight events. Having some increased pain secondary to progression with PT. VSS, afebrile. Will provide pain medicine and likely discharge home today. Exam/Review of Systems Vital Signs Vitals Vital Signs Date Time Temp Pulse Resp B/P Pulse Ox O2 Delivery O2 Flow Rate FiO2 01/02/17 20:29 98.2 81 18 135/67 96 01/01/17 19:55 Room Air 01/01/17 08:20 4.0 Intake and Output 01/02/17 01/02/17 01/03/17 15:00 23:00 07:00 Intake Total 400 ml 1220 ml 500 ml Output Total 800 ml 7400 ml Balance 400 ml 420 ml -6900 ml Exam Free Text/Dictation Dressing dry Incision clean, dry, and intact without redness or drainage Thigh soft 5/5 Quadriceps, Tibialis Anterior, EHL, Gastroc, Soleus, Peroneals Normal sensation Palpable DT/PT, CR <2 sec No distal edema Results Result Diagram: 01/03/17 0500 01/03/17 0500 JAYSHREE BENITEZ PA-C January 03, 2017 08:04
[2017-01-03 08:30] VITALS: BP 129/70; RESP 18
[2017-01-03] MEDS: metFORMIN 500 MG TAB PO SCH ×2 (08:38→17:39)
[2017-01-03] MEDS: ASPIRIN (EC) 325 MG TAB PO SCH ×2 (08:38→20:48)
[2017-01-03] MEDS: GABAPENTIN 100 MG CAP PO SCH ×3 (08:39→20:48)
[2017-01-03] MEDS: CHLORTHALIDONE 25 MG TAB PO SCH (08:39)
[2017-01-03] MEDS: MEMANTINE 10 MG TAB PO SCH ×2 (08:39→20:48)
[2017-01-03] MEDS: ALLOPURINOL 100 MG TAB PO SCH (08:39)
[2017-01-03] MEDS: LOSARTAN 25 MG TAB PO SCH (08:39)
[2017-01-03] MEDS: DOCUSATE SODIUM 100 MG CAP PO SCH ×2 (08:42→20:48)
--- NOTE | 2017-01-03 10:06 | DS ---
DATE OF ADMISSION: 12/31/2016 DATE OF DISCHARGE: 01/03/2017 CONDITION UPON DISCHARGE: Stable. ADMITTING DIAGNOSIS: Left knee osteoarthritis. DISCHARGE DIAGNOSIS: Status post left total knee arthroplasty. PROCEDURE PERFORMED: Left total knee arthroplasty. HOSPITAL COURSE: This is an 86-year-old male who was seen in the clinic initially complaining of le ft knee pain. He had undergone conservative modalities unsuccessfully and it was thought he would b enefit from a left total knee arthroplasty. On 12/31/2016, the patient was admitted and taken to [facility] operating room where he underwent a left total knee arthroplasty. There were no intraoperative co mplications. The patient tolerated the procedure well. He was taken to the recovery room in stable condition. Pain was well controlled with oral pain medication. He was started on aspirin and SCDs for DVT prophylaxis. He remained hemodynamically stable and neurovascularly intact throughout his hospital stay. He began physical therapy on postoperative day 1 and was deemed stable for discharge home on postoperative day 3. Prior to discharge, the incision was inspected and noted to be clean, dry and intact. Dressing changes were done prior to the patient going home. LABORATORY ANALYSIS: Hemoglobin 12.2, hematocrit 36.9. Chemistry panel upon discharge shows sodium 129, which is slightly low. BUN was 22, otherwise chemistry panel is within normal limits. DISCHARGE MEDICATIONS: 1. [place] 7.5/325 mg. 2. Aspirin 325 mg. 3. Tramadol 50 mg. Additionally, the patient is to resume all of his normal home medications. DISCHARGE INSTRUCTIONS: The patient will be discharged home in stable condition. He is to resume a normal diet. He is weightbearing as tolerated on the left lower extremity. He will begin physical therapy with home health. He will be discharged home with the medications noted above and is to re sume all of his normal home medication. The patient is to call the office or go to the emergency ro om for any concerns including increased redness, swelling, drainage, fever or any concerns regarding the operation or site of incision. FOLLOWUP: The patient is to follow up in the office on 01/10/2017. Dictated By: JAYSHREE ZAMBRANO for DINO JETER/ELVER Conf#: [id number] DID#: [id number]
--- NOTE | 2017-01-03 13:41 | CONS ---
Date/Time of Note Date/Time of Note DATE: 01/03/17 TIME: 13:35 Assessment/Plan Assessment/Plan Chief Complaint/Hosp Course 1. he is 3 days post op a L TKA . He is doing well . He can be discharged home today if cleared by PT . 2. continue current medication and PT as tolerated . 3. hyponatremia , order urine sodium and if patient is discharged then check labs next week by visiting nurse . Problems: Consultation Date/Type/Reason Admit Date/Time December 31, 2016 at 18:10 Type of Consultation: medicine 24 HR Interval Summary Free Text/Dictation He is up walking with PT . He is having some L knee joint pain . Constitutional: improved, no complaints Exam/Review of Systems Vital Signs Vitals Vital Signs Date Time Temp Pulse Resp B/P Pulse Ox O2 Delivery O2 Flow Rate FiO2 01/03/17 08:30 98.8 100 18 129/70 93 01/01/17 19:55 Room Air 01/01/17 08:20 4.0 Intake and Output 01/02/17 01/02/17 01/03/17 15:00 23:00 07:00 Intake Total 400 ml 1220 ml 500 ml Output Total 800 ml 7400 ml Balance 400 ml 420 ml -6900 ml Exam Constitutional: alert, oriented Respiratory: clear to auscultation, normal air movement Cardiovascular: regular rate and rhythm Musculoskeletal: nl extremities to inspection Results Result Diagram: 01/03/17 0500 01/03/17 0500 Results 24 hrs Laboratory Tests Test 01/02/17 17:05 01/02/17 21:08 01/03/17 05:00 01/03/17 07:40 Bedside Glucose 118 134 135 Hemoglobin 12.2 L Hematocrit 36.9 L Sodium Level 129 L Potassium Level 4.6 Chloride Level 95 L Carbon Dioxide Level 29 Anion Gap 10 Blood Urea Nitrogen 22 H Creatinine 0.85 Glucose Level 153 Calcium Level 9.3 Medications Medications Current Medications Allopurinol (Zyloprim) 100 mg DAILY PO Last administered on 01/03/17 08:39; Admin Dose 100 MG; Start 01/01/17 at 09:00 Memantine (Namenda) 10 mg BID PO Last administered on 01/03/17 08:39; Admin Dose 10 MG; Start 01/01/17 at 09:00 Atorvastatin Calcium 10 mg 10 mg DAILY@21 PO Last administered on 01/02/17 21: 09; Admin Dose 10 MG; Start 12/31/16 at 21:00 Lactated Ringer's (Lr) 1,000 ml @ 100 mls/hr Q10H IV Last administered on 01/02 01:36; Admin Dose 100 MLS/HR; Start 12/31/16 at 16:31 Acetaminophen/ Hydrocodone Bitart ([place] (5/325)) 1 tab Q4H PRN PO PAIN LEVEL 1 -3 Last administered on 01/03/17 04:24; Admin Dose 1 TAB; Start 12/31/16 at 17: 00 Acetaminophen/ Hydrocodone Bitart ([place] (5/325)) 2 tab Q4H PRN PO PAIN LEVEL 4 -7 Last administered on 01/03/17 08:40; Admin Dose 2 TAB; Start 12/31/16 at 17: 00 Hydromorphone HCl (Dilaudid) 1 mg Q3H PRN IV PAIN LEVEL 8-10 Last administered on 01/02/17 20:22; Admin Dose 1 MG; Start 12/31/16 at 17:00 Ondansetron HCl (Zofran Inj) 4 mg Q6H PRN IV NAUSEA AND/OR VOMITING; Start 12/31 at 17:00 Bisacodyl (Dulcolax Supp) 10 mg Q12H PRN [place] CONSTIPATION Last administered on 08:38; Admin Dose 10 MG; Start 12/31/16 at 17:00 Magnesium Hydroxide (Milk Of Mag) 30 ml BID PRN PO CONSTIPATION Last administered on 01/02/17 14:56; Admin Dose 30 ML; Start 12/31/16 at 17:00 Sodium Biphosphate/ Sodium Phosphate (Fleet Enema) 133 ml DAILY PRN [place] CONSTIPATION; Start 12/31/16 at 17:00 Docusate Sodium (Colace) 100 mg BID PO Last administered on 01/03/17 08:42; Admin Dose 100 MG; Start 12/31/16 at 21:00 Diphenhydramine HCl (Benadryl) 25 mg Q6H PRN PO PRURITUS; Start 12/31/16 at 17: 00 Aspirin (Ecotrin) 325 mg BID PO Last administered on 01/03/17 08:38; Admin Dose 325 MG; Start 01/01/17 at 09:00 Pantoprazole (Protonix Tab) 40 mg BID@06,18 PO Last administered on 01/03/17 05:46; Admin Dose 40 MG; Start 12/31/16 at 18:00 Gabapentin (Neurontin) 100 mg TID PO Last administered on 01/03/17 13:21; Admin Dose 100 MG; Start 12/31/16 at 21:00; Stop 01/07/17 at 20:59 Miscellaneous Information 1 ea NOTE XX ; Start 12/31/16 at 19:30 Glucose (Glutose) 15 gm Q15M PRN PO DECREASED GLUCOSE; Start 12/31/16 at 19:30 Glucose (Glutose) 22.5 gm Q15M PRN PO DECREASED GLUCOSE; Start 12/31/16 at 19:30 Dextrose (D50w Syringe) 25 ml Q15M PRN IV DECREASED GLUCOSE; Start 12/31/16 at 19:30 Dextrose (D50w Syringe) 50 ml Q15M PRN IV DECREASED GLUCOSE; Start 12/31/16 at 19:30 Glucagon (Glucagen) 1 mg Q15M PRN IM DECREASED GLUCOSE; Start 12/31/16 at 19:30 Glucose (Glutose) 15 gm Q15M PRN BUCCAL DECREASED GLUCOSE; Start 12/31/16 at 19: 30 Chlorthalidone (Hygroton) 12.5 mg DAILY PO Last administered on 01/03/17 08:39 ; Admin Dose 12.5 MG; Start 01/01/17 at 11:00 Losartan Potassium (Cozaar) 25 mg DAILY PO Last administered on 01/03/17 08:39 ; Admin Dose 25 MG; Start 01/01/17 at 11:00 MARCELO TAPIA MD January 03, 2017 13:41
[2017-01-03 16:47] VITALS: BP 127/59; PULSE 81; RESP 15
[2017-01-03 20:28] VITALS: BP 140/70; PULSE 98; RESP 18
[2017-01-03] MEDS: ATORVASTATIN 10 MG TAB PO SCH (20:48)
[2017-01-04 05:13] LABS: ADD SCAN DIFF NO
[2017-01-04 05:29] LABS: ABNORMAL IP MESSAGE 1; BASOPHILS % 0.3 % (0.0-2.0); EOSINOPHILS # 0.1 10^3/ul (0.0-0.5); LYMPHOCYTES # 1.5 10^3/ul (0.8-2.9); LYMPHOCYTES % 10.9 % (15.0-51.0); MEAN CORPUSCULAR HEMOGLOBIN 30.5 pg (29.0-33.0); MEAN CORPUSCULAR HGB CONC 34.2 g/dl (32.0-37.0); MEAN CORPUSCULAR VOLUME 89.2 fl (82.0-101.0); MEAN PLATELET VOLUME 11.4 fl (7.4-10.4); MONOCYTE # 1.8 10^3/ul (0.3-0.9); MONOCYTES % 13.4 % (0.0-11.0); NEUTROPHIL # 10.1 10^3/ul (1.6-7.5); NEUTROPHILS % 73.9 % (39.0-77.0); PLATELET COUNT 223 10^3/UL (140-415); RED BLOOD COUNT 4.26 10^6/ul (4.70-6.10); RED CELL DISTRIBUTION WIDTH 12.6 % (11.5-14.5); WHITE BLOOD COUNT 13.6 10^3/ul (4.8-10.8)
[2017-01-04] MEDS: LEVOTHYROXINE 100 MCG TAB PO SCH (06:08)
[2017-01-04] MEDS: PANTOPRAZOLE (EC) 40 MG TAB PO SCH (06:08)
[2017-01-04 06:12] LABS: POTASSIUM 4.7 mmol/L (3.5-5.1)
[2017-01-04 06:14] LABS: CREATININE 0.91 mg/dl (0.61-1.24)
[2017-01-04 06:15] LABS: CALCIUM 9.4 mg/dl (8.4-10.2)
[2017-01-04] MEDS: metFORMIN 500 MG TAB PO SCH (07:50)
[2017-01-04 08:01] VITALS: BP 143/65; RESP 22
[2017-01-04] MEDS: INSULIN ASPART [NOVOLOG] 3 ML PEN SC SCH ×2 (08:51→11:40)
[2017-01-04] MEDS: GABAPENTIN 100 MG CAP PO SCH (09:00)
[2017-01-04] MEDS: MAGNESIUM HYDROXIDE 30ML CUP PO PRN (09:40)
[2017-01-04] MEDS: ALLOPURINOL 100 MG TAB PO SCH (10:41)
[2017-01-04] MEDS: LOSARTAN 25 MG TAB PO SCH (10:41)
[2017-01-04] MEDS: MEMANTINE 10 MG TAB PO SCH (10:41)
[2017-01-04] MEDS: DOCUSATE SODIUM 100 MG CAP PO SCH (10:41)
[2017-01-04] MEDS: ASPIRIN (EC) 325 MG TAB PO SCH (10:42)
[2017-01-04] MEDS: CHLORTHALIDONE 25 MG TAB PO SCH (10:42)
--- NOTE | 2017-01-04 11:10 | PN ---
Date/Time of Note Date/Time of Note DATE: 01/04/17 TIME: 11:05 Assessment/Plan Lines/Catheters IV Catheter Type (from Nrsg): Saline Lock Jackson in Place (from Nrsg): No Assessment/Plan Assessment/Plan Stable POD #4, s/p left TKA -pain meds as needed -ASA/SCDs for DVT prophylaxis -OOB with PT -dressing changed -d/c home today -follow up in the office as previously scheduled on 01/10/17 Subjective 24 Hr Interval Summary No acute overnight events. Pain control is much better today. VSS, afebrile. Will go home today. Exam/Review of Systems Vital Signs Vitals Vital Signs Date Time Temp Pulse Resp B/P Pulse Ox O2 Delivery O2 Flow Rate FiO2 01/04/17 08:01 99.0 93 22 143/65 95 01/03/17 20:57 Nasal Cannula 2.0 Intake and Output 01/03/17 01/03/17 01/04/17 15:00 23:00 07:00 Intake Total 960 ml 1400 ml Output Total 1000 ml 1100 ml Balance -40 ml 300 ml Exam Free Text/Dictation Dressing dry Incision clean, dry, and intact without redness or drainage Thigh soft / Quadriceps, Tibialis Anterior, EHL, Gastroc, Soleus, Peroneals Normal sensation Palpable DT/PT, CR <2 sec No distal edema Results Result Diagram: 01/04/17 0447 01/04/17 044 JAYSHREE BENITEZ PA-C January 04, 2017 11:09
[2017-01-04 12:06] VITALS: BP 131/67; PULSE 86; RESP 18
[2017-01-04] MEDS ORDERED: SOD CHLORIDE 0.45% 1,000 ML IV SCH (12:30)
--- NOTE | 2017-01-04 14:40 | CONS ---
Date/Time of Note Date/Time of Note DATE: 01/04/17 TIME: 14:38 Assessment/Plan Assessment/Plan Additional Assessment/Plan 1. he is 4 days post op a L TKA . He is doing well . discharge home today 2. continue current medication and PT as tolerated . 3. hyponatremia , order urine sodium and if patient is discharged then check labs next week by visiting nurse follow up with Dr Butts Consultation Date/Type/Reason Admit Date/Time December 31, 2016 at 18:10 Initial Consult Date Type of Consultation: medicine 24 HR Interval Summary Free Text/Dictation patient anxious to go home no acute issues home support set up stable for d/c per Dr. Dennis Constitutional: no complaints Exam/Review of Systems Vital Signs Vitals Vital Signs Date Time Temp Pulse Resp B/P Pulse Ox O2 Delivery O2 Flow Rate FiO2 01/04/17 12:06 97.6 86 18 131/67 100 Nasal Cannula 2.0 86 Intake and Output 01/03/17 01/03/17 01/04/17 14:59 22:59 06:59 Intake Total 960 ml 1400 ml Output Total 1000 ml 1100 ml Balance -40 ml 300 ml Exam Constitutional: alert, oriented Cardiovascular: regular rate and rhythm Gastrointestinal: soft Results Result Diagram: 01/04/17 0447 01/04/17 0447 Results 24 hrs Laboratory Tests Test 01/03/17 17:03 01/03/17 20:06 01/04/17 04:47 01/04/17 08:28 Bedside Glucose 158 182 148 White Blood Count 13.6 H Red Blood Count 4.26 L Hemoglobin 13.0 L Hematocrit 38.0 L Mean Corpuscular Volume 89.2 Mean Corpuscular Hemoglobin 30.5 Mean Corpuscular Hemoglobin Concent 34.2 Red Cell Distribution Width 12.6 Platelet Count 223 Mean Platelet Volume 11.4 H Neutrophils % 73.9 Lymphocytes % 10.9 L Monocytes % 13.4 H Eosinophils % 1.0 Basophils % 0.3 Nucleated Red Blood Cells % 0.0 Neutrophils # 10.1 H Lymphocytes # 1.5 Monocytes # 1.8 H Eosinophils # 0.1 Basophils # 0.0 Nucleated Red Blood Cells # 0.0 Sodium Level 132 L Potassium Level 4.7 Chloride Level 93 L Carbon Dioxide Level 26 Anion Gap 18 #H Blood Urea Nitrogen 19 Creatinine 0.91 Glucose Level 149 Calcium Level 9.4 EMILY LENNON MD January 04, 2017 14:40
== END 2017-01-04 13:06 | disposition home health service (06) | DRG 470 ==
LOC: SDS 11:46 → MS1 18:10 → UNDOFXSDCSVC 18:10 → MS1 18:10
PROVIDERS: ADMIT Orthopaedic Surgery; ATTEND Orthopaedic Surgery
PROC: 0SRD0J9 Replacement of Left Knee Joint with Synthetic Substitute, Cemented, Open Approach (ICD-10-PCS; principal; 2016-12-31 13:00)
DX: M17.12 Unilateral primary osteoarthritis, left knee (principal); E87.1 Hypo-osmolality and hyponatremia; E11.9 Type 2 diabetes mellitus without complications; I10 Essential (primary) hypertension; K21.9 Gastro-esophageal reflux disease without esophagitis; E78.5 Hyperlipidemia, unspecified; E03.9 Hypothyroidism, unspecified
CPT/HCPCS: 73560; 80048; 81001; 81003; 82962; 83735; 84300; 85014; 85018; 85025; 86850; 86900; 86901; 86920; 87081; 87086; 88304; 88311; 97110; 97116; 97162; 97530; C1776; C9290; J0171; J0690; J0697; J0735; J1100; J1170; J1815; J1885; J2274; J2765; J3010; J3370; J7120

== ENCOUNTER 2017-01-10 12:51 | Inpatient (IN) | payer MEDICARE, OTHER ==
[~2017-01-10] VITALS: Ht 165.1 cm; Wt 86.4 kg
[~2017-01-10 12:51] MED LIST changes: -CLIN-73 PO; -LATA2.5D2 BOTH EYES; -TAMS0.4C2 PO
[2017-01-10 12:53] VITALS: Ht 165.1 cm; Wt 86.4 kg
--- NOTE | 2017-01-10 13:42 | ERA ---
ER Documentation Chief Complaint Date/Time DATE: 01/10/17 TIME: 13:41 Chief Complaint FEVER & ELEVATED BLOOD COUNT S/P KNEE SURGERY 12/31/16 HPI This 86-year-old male, fever elevated blood count status post knee surgery on the ninth. Dr. Marrufo consent the patient in for evaluation and admission. Dr. Douglas is at the bedside as he will be the medicine admitting physician ROS All systems reviewed and are negative except as per history of present illness. Medications Home Meds Active Scripts Hydrocodone/Acetaminophen ([place] 7.5-325 Tablet) 1 Each Tablet, 1 EACH PO Q6 Y for PAIN, #60 TAB Prov:JAYSHREE EBNITEZ PA-C 01/02/17 Tramadol HCl (Tramadol HCl) 50 Mg Tablet, 50 MG PO Q6 for 30 Days, #60 TAB Prov:JAYSHREE BENITEZ PA-C 01/02/17 Aspirin (Aspir-Jacqueline) 325 Mg Tablet., 325 MG PO BID for 42 Days, #84 Prov:JAYSHREE BENITEZ PA-C 01/02/17 Reported Medications Linaclotide (LINZESS) 145 Mcg Capsule, 145 MCG PO DAILY, #30 CAP 12/31/16 Empagliflozin/Metformin HCl (Synjardy 12.5-500 mg Tablet) 1 Each Tablet, 1 EACH PO BID, TAB 12/31/16 Memantine* (Namenda* XR) 21 Mg Cap.spr.24, 21 MG PO DAILY, #30 TAB 12/31/16 Methocarbamol* (Robaxin*) 500 Mg Tab, 500 MG PO QHS, TAB 12/31/16 Allopurinol* (Allopurinol*) 100 Mg Tablet, 100 MG PO DAILY, TAB 12/31/16 Docusate Sodium* (Colace*) 250 Mg Capsule, 250 MG PO BID, #60 CAP 12/31/16 Spironolactone* (Aldactone*) 25 Mg Tablet, 25 MG PO EVERY OTHER DAY, #30 TAB 12/31/16 Azilsartan-Chlorthalidone (Edarbyclor) 40-25 Mg Tablet, 0.5 TAB PO DAILY, TAB 12/31/16 Magnesium Oxide* (Mag-Oxide*) 400 Mg Tablet, 400 MG PO BID, TAB 12/31/16 Esomeprazole Mag Trihydrate (Nexium) 40 Mg Capsule.dr, 40 MG PO DAILY, #30 CAP 12/31/16 Levothyroxine Sodium* (Levoxyl*) 100 Mcg Tablet, 100 MCG PO BEFORE BREAKFAST, # 30 TAB 12/31/16 Simvastatin* (Zocor*) 20 Mg Tablet, 20 MG PO QHS, #30 TAB 12/31/16 Allergies Allergies: Coded Allergies: No Known Allergy (Unverified , 12/31/16) PMhx/Soc History of Surgery: Yes (PROSTAT, HERNIA, CATARACT) Anesthesia Reaction: No Hx Neurological Disorder: No Hx Respiratory Disorders: No Hx Cardiac Disorders: Yes (HTN) Hx Psychiatric Problems: No Hx Miscellaneous Medical Probl: Yes (HTN, hyperlipidemia, hypothyroidism, pre diabetic, GERD, BPH) Hx Alcohol Use: Yes (RARE) Hx Substance Use: No Hx Tobacco Use: Yes (QUIT 25 YEARS AGO) Physical Exam Vitals Vital Signs Date Time Temp Pulse Resp B/P Pulse Ox O2 Delivery O2 Flow Rate FiO2 01/10/17 12:53 98.6 82 20 115/57 95 Physical Exam Const: [] Head: Atraumatic Eyes: Normal Conjunctiva ENT: Normal External Ears, Nose and Mouth. Neck: Full range of motion..~ No meningismus. Resp: Clear to auscultation bilaterally Cardio: Regular rate and rhythm, no murmurs Abd: Soft, non tender, non distended. Normal bowel sounds Skin: No petechiae or rashes Back: No midline or flank tenderness Ext: No cyanosis, or edema Neur: Awake and alert Psych: Normal Mood and Affect Procedures/MDM Medical decision-makin-year-old male with fever postop. Cultures have been sent off. Antibiotics and further care will be deferred to the inpatient team. Inpatient team at bedside at this time. Departure Diagnosis: Primary Impression: Fever Qualified Code: R50.9 - Fever, unspecified fever cause Condition: Stable MARIA ALEJANDRA PALMER January 10, 2017 13:42
[2017-01-10] MEDS ORDERED: TAMS0.4C2 PO (13:59)
--- NOTE | 2017-01-10 14:09 | RADRPT ---
PROCEDURE: XR Chest. CLINICAL INDICATION: Shortness of breath TECHNIQUE: Single frontal chest x-ray. COMPARISON: None available FINDINGS: Mild bibasilar atelectasis versus scarring is present. An irregular 2.2 x 1.3 cm density is present in the peripheral right lower lobe. Otherwise, the lungs are clear. No focal opacification is see n. No pneumothorax or pleural effusion is seen. Aortic arch atherosclerotic calcifications are pre sent. Otherwise, the cardiomediastinal silhouette is unremarkable. The osseous structures are lalit sly unremarkable. IMPRESSION: 1. irregular 1.3 x 2.3 cm density in the peripheral right lower lobe may represent focal infiltrate or nodule. Recommend correlation with prior outside imaging if available. Otherwise, CT chest may be obtained. 2. Aortic atherosclerosis. RPTAT: JJ .Arnaud Parra MD, Date Time Electronically viewed and signed by .Arnaud Parra MD, on 01/10/2017 14:08 .A/
[2017-01-10] MEDS ORDERED: LATA2.5D2 BOTH EYES (14:14)
[2017-01-10] MEDS: MEROPENEM 1 GM/100 ML (PMX) 100 ML IVPB SCH ×2 (14:30→21:40)
[2017-01-10 14:39] LABS: ADD SCAN DIFF NO
[2017-01-10 14:41] LABS: BASOPHIL # 0.1 10^3/ul (0.0-0.1); BASOPHILS % 0.5 % (0.0-2.0); EOSINOPHILS # 0.5 10^3/ul (0.0-0.5); EOSINOPHILS % 3.1 % (0.0-7.0); HEMATOCRIT 31.2 % (42.0-52.0); HEMOGLOBIN 10.4 g/dl (14.0-18.0); LYMPHOCYTES # 1.7 10^3/ul (0.8-2.9); LYMPHOCYTES % 10.9 % (15.0-51.0); MEAN CORPUSCULAR HEMOGLOBIN 30.1 pg (29.0-33.0); MEAN CORPUSCULAR HGB CONC 33.3 g/dl (32.0-37.0); MEAN CORPUSCULAR VOLUME 90.4 fl (82.0-101.0); MEAN PLATELET VOLUME 9.8 fl (7.4-10.4); MONOCYTE # 1.3 10^3/ul (0.3-0.9); MONOCYTES % 8.1 % (0.0-11.0); NEUTROPHIL # 11.8 10^3/ul (1.6-7.5); NEUTROPHILS % 74.7 % (39.0-77.0); PLATELET COUNT 368 10^3/UL (140-415); RED BLOOD COUNT 3.45 10^6/ul (4.70-6.10); RED CELL DISTRIBUTION WIDTH 12.7 % (11.5-14.5); WHITE BLOOD COUNT 15.7 10^3/ul (4.8-10.8)
[2017-01-10 15:00] LABS: ALBUMIN 3.6 g/dl (3.3-4.9)
[2017-01-10] MEDS ORDERED: VANCOMYCIN 1 GM (PMX) 250 ML IVPB SCH (15:00)
[2017-01-10 15:01] LABS: POTASSIUM 4.5 mmol/L (3.5-5.1)
[2017-01-10 15:03] LABS: ALBUMIN/GLOBULIN RATIO 0.97; BILIRUBIN,INDIRECT 0.2 mg/dl (0-1.1); BILIRUBIN,TOTAL 0.2 mg/dl (0.2-1.3); CREATININE 1.04 mg/dl (0.61-1.24); TOTAL PROTEIN 7.3 g/dl (6.1-8.1)
[2017-01-10 15:04] LABS: CALCIUM 9.8 mg/dl (8.4-10.2)
--- NOTE | 2017-01-10 15:41 | HP ---
DATE OF ADMISSION: 01/10/2017 IDENTIFYING DATA: The patient is an 86-year-old male being admitted to the hospital following left knee replacement and symptoms of fever and dysuria. HISTORICAL EVENTS: This patient was admitted here on 12/31/2016 and ultimately discharged on 2016 after undergoing total left knee replacement. His course in the hospital was uneventful with h is white count on 01/04/2017 being 13,600. It was approximately 3 days ago that he had the onset of dysuria and low grade fever. Urine culture and urinalysis was obtained. This revealed, as noted today, no growth. Levaquin was empirically b egun at a dose of 500 mg daily which has continued through present. His dysuria has improved. His family did think that there was accompanying blood in his urine. He has had, in the evening, some s weats. It is uncertain whether there have been chills present. He has had no vomiting, diarrhea, o r abdominal pain. There has been mild left knee pain without swelling, redness, or drainage. He wa s evaluated earlier by Dr. Alicea, and hospitalization was thought warranted. He presently denies s ubsternal chest pain, cough, wheezing, shortness of breath, nausea, vomiting, or abdominal pain. PAST MEDICAL HISTORY: 1. Hypertension. 2. Gastroesophageal reflux. 3. BPH. 4. Hyperlipidemia. 5. Hypothyroidism. MEDICATIONS: 1. Simvastatin 20 mg per day. 2. Levothyroxine 100 mcg per day. 3. Nexium 40 mg per day. 4. Lovaza 2 grams twice a day. 5. Aspirin 81 mg per day. 6. Magnesium oxide 400 mg b.i.d. 7. Astelin 1 spray twice a day in each nostril. 8. Edarbyclor 40/25 half a tablet daily. 9. Aldactone 25 mg per day. 10. Docusate sodium 250 mg twice a day. 11. Allopurinol 100 mg per day. 12. Tramadol 50 mg every 4 hours p.r.n. 13. Robaxin 500 mg as needed. 14. Namenda XR 21 mg per day. 15. Synjardy 12.5/500 twice a day. 16. Linzess 140 mg per day. PHYSICAL EXAMINATION: VITAL SIGNS: Temperature 98.6, BP 115/57, O2 sat 95%, respirations were 20. HEENT: Eyes: Extraocular muscles were full. Nose, mouth, and throat were normal. NECK: Supple. There was no jugular venous distention, thyroid enlargement, or adenopathy. Carotid s were 2+. LUNGS: Clear. HEART: Rhythm regular, no murmur. No third or fourth sound. ABDOMEN: Nontender. Liver and spleen were not palpable. No masses or tenderness were noted. EXTREMITIES: No edema. Calves nontender. The left knee was not red. It was slightly tender. The re was no drainage. IMPRESSION: Postoperative temperature with urinalysis that did not reveal an infection to be presen t, suggests knee is the primary source. PLAN: Await culture of the knee aspirate, ID to see. We will discuss with Dr. Alicea whether broad spectrum antibiotics should be started prior to culture results. We will monitor sugars and use valentino bq a.c. insulin if needed. Dictated By: KALEY DA SILVA MD MR/NTS Conf#: [id number] DID#: [id number] CC: DINO ALICEA MD;*EndCC*
[2017-01-10] MEDS ORDERED: HYDROCODONE/APAP (7.5/325) TAB PO PRN (17:00)
[2017-01-10] MEDS ORDERED: ONDANSETRON 4 MG INJ IV PRN (17:00)
[2017-01-10] MEDS ORDERED: ACETAMINOPHEN 325 MG TAB PO PRN (17:00)
[2017-01-10] MEDS ORDERED: NACL 0.9% 3 ML SYG IV SCH (17:00)
[2017-01-10] MEDS ORDERED: ZOLPIDEM 5 MG TAB PO PRN (17:00)
[2017-01-10 17:04] VITALS: BP 133/59; PULSE 68; RESP 20
[2017-01-10] MEDS: metFORMIN 500 MG TAB PO SCH (17:25)
[2017-01-10] MEDS: VALSARTAN 160 MG TAB PO SCH (18:00)
[2017-01-10] MEDS ORDERED: GLUCOSE GEL 15 GRAM TUBE PO PRN ×2 (18:00)
[2017-01-10] MEDS ORDERED: GLUCOSE GEL 15 GRAM TUBE BUCCAL PRN (18:00)
[2017-01-10] MEDS ORDERED: GLUCAGON 1 MG INJ IM PRN (18:00)
[2017-01-10] MEDS ORDERED: DEXTROSE 50% 50 ML SYRINGE IV PRN ×2 (18:00)
--- NOTE | 2017-01-10 18:11 | RADRPT ---
PROCEDURE: US Lower extremity Venous. CLINICAL INDICATION: Bilateral lower extremity edema TECHNIQUE: Multiple sonographic images of the bilateral lower extremity deep venous system was obt ained utilizing grayscale, color-flow, compressive sonography and doppler imaging with augmentation. The images were reviewed on a PACS workstation. COMPARISON: None. FINDINGS: There is normal compressibility and flow within the bilateral common femoral, femoral , posterior ti bial and popliteal veins. RPTAT: AA IMPRESSION: No sonographic evidence for deep venous thrombosis. .Philip Majano MD, MD Date Time Electronically viewed and signed by .Philip Majano MD, on 01/10/2017 18:10 .S/
--- NOTE | 2017-01-10 18:12 | RADRPT ---
PROCEDURE: US Abdomen and retroperitoneal complete. CLINICAL INDICATION: abdominal pain , fever TECHNIQUE: Multiple real-time images were acquired of the patient's abdomen and retroperitoneum ut ilizing a high resolution transducer. COMPARISON: None FINDINGS: The liver demonstrates increased echogenicity. The liver is increased in size and no focal solid le sions are seen. The portal vein is patent with normal direction of flow. No intrahepatic biliary d ilatation is seen. The liver measures 19.1 cm in length. No gallstones are identified within the gallbladder. There is no pericholecystic fluid or gallbladd er wall thickening. The common bile duct measures 5 mm in maximal dimension. The visualized portions of the pancreas are unremarkable. The tail of the pancreas is not seen. The spleen is normal in size. The spleen measures 10.3 cm in length. No free fluid is identified. The kidneys are normal in size, and demonstrate normal cortical echogenicity and cortical thickness. The right kidney measures 11.0 cm. The left kidney measures 11.2 cm. There is no evidence of hyd ronephrosis. There are no kidney stones. RPTAT: AA IMPRESSION: Mild hepatomegaly with fatty infiltration of the liver. No evidence of gallstones. .Philip Majano MD, MD Date Time Electronically viewed and signed by .Philip Majano MD, MD on 01/10/2017 18:12 .S/
[2017-01-10] MEDS: SOD CHLORIDE 0.9% 1,000 ML IV SCH (19:17)
[2017-01-10] MEDS: traMADol 50 MG TAB PO SCH (20:02)
[2017-01-10] MEDS: MEMANTINE 5 MG TAB PO SCH (20:35)
[2017-01-10 20:42] VITALS: BP 115/68; RESP 20
[2017-01-10] MEDS: AZELASTINE 30 ML NAS SPRAY NASAL SCH (21:00)
[2017-01-10] MEDS: MAGNESIUM OXIDE 400 MG TAB PO SCH (21:36)
[2017-01-10] MEDS: TAMSULOSIN (SR) 0.4 MG CAP PO SCH (21:36)
[2017-01-10] MEDS: LATANOPROST 0.005% 2.5 ML OPH BOTH EYES SCH (21:36)
[2017-01-10] MEDS: DOCUSATE SODIUM 250 MG CAP PO SCH (21:36)
[2017-01-10] MEDS: PANTOPRAZOLE (EC) 40 MG TAB PO SCH (21:43)
[2017-01-11 00:09] LABS: ADD UMIC YES; URINE BILIRUBIN (Dip) NEGATIVE (NEGATIVE); URINE BLOOD (Dip) NEGATIVE (NEGATIVE); URINE COLOR LT. YELLOW (YELLOW); URINE GLUCOSE (Dip) NEGATIVE (NEGATIVE); URINE KETONES (Dip) NEGATIVE (NEGATIVE); URINE LEUKOCYTE ESTERASE (Dip) TRACE (NEGATIVE); URINE NITRITE (Dip) NEGATIVE (NEGATIVE); URINE TOTAL PROTEIN (Dip) NEGATIVE (NEGATIVE); URINE UROBILINOGEN (Dip) 0.2 E.U./dL (0.1-1.0)
[2017-01-11 00:32] LABS: BACTERIA,URINE OCCASIONAL; SQUAMOUS EPITHELIAL CELL,UR OCCASIONAL
[2017-01-11] MEDS: traMADol 50 MG TAB PO SCH ×5 (00:55→23:58)
--- NOTE | 2017-01-11 01:00 | CONS ---
DATE OF ADMISSION: 01/10/2017 DATE OF CONSULTATION: 01/10/2017 CHIEF COMPLAINT: Fever, status post total knee arthroplasty. HISTORY OF PRESENT ILLNESS: The patient is an 86-year-old gentleman, who is about 10 days status post left total knee arthroplasty. He has had fevers over the last few days that were low grade. He has been at home, and the home health nurse has called to let us know that the knee looks benign, but that he was complaining of dysuria. Urine specimen was obtained 2 days ago and sent for routine urinalysis and culture and sensitivity. After the urine specimen was obtained, the patient was started empirically on Levaquin at 500 mg daily. The patient has continued to have low-grade temperatures since starting the Levaquin. He has had some mild swelling in the knee, but no drainage from the knee. He is walking with a walker. He has had some pain with urination. He was brought to the office today, and the knee was examined and noted to be fairly benign looking, although there was some fluid in the knee which was aspirated and looked consistent with blood. I spoke with Dr. Cruz; who was the hospitalist who saw him in the hospital, and we agreed that since he has not improved with oral antibiotics that he be admitted to the hospital for further management. PAST MEDICAL HISTORY: 1. Hypertension. 2. Gastroesophageal reflux. 3. Benign prostatic hypertrophy. 4. Elevated cholesterol. 5. Hypothyroidism. PAST SURGICAL HISTORY: 1. Left total knee arthroplasty. 2. Prostate surgery. 3. Cataracts. MEDICATIONS: 1. Simvastatin. 2. Levothyroxine. 3. Nexium. 4. Lovaza. 5. Baby aspirin. 6. Magnesium. 7. Astelin spray. 8. Edarbyclor. 9. Aldactone. 10. Colace. 11. Allopurinol. 12. Tramadol. 13. Robaxin. 14. Namenda. 15. Synjardy. 16. Linzess. ALLERGIES: NO KNOWN DRUG ALLERGIES. SOCIAL HISTORY: The patient previously smoked, but 32 years ago. He drinks socially. FAMILY HISTORY: Noncontributory. REVIEW OF SYSTEMS: GENERAL/CONSTITUTIONAL: Negative for recent fevers, chills, decreased appetite , fatigue, or unexplained weight loss. EYES/EARS/NOSE/MOUTH/THROAT: Negative for headaches, double vision, tearing, nose bleeding, colds, obstruction, discharge, dental difficulties, gingival bleeding, dentures, neck stiffness, pain, tenderness, or masses in thyroid or other areas. CARDIOVASCULAR: Negative for chest pain, palpitations, irregular heartbeat, syncope, dyspnea on exertion, orthopnea, nocturnal paroxysmal dyspnea. Elevated cholesterol. RESPIRATORY: Negative for shortness of breath, wheezing, stridor, hemoptysis, tuberculosis, fever, or night sweats. GASTROINTESTINAL: Negative for dysphagia, abdominal pain, heartburn, nausea, vomiting, hematemesis, jaundice, constipation, diarrhea, abnormal stools (marjan- colored, tarry, bloody, greasy, foul-smelling), or bright red blood per rectum. GENITOURINARY: Negative for urgency, frequency, dysuria, nocturia, hematuria, stones, infections, nephritis, hesitancy, change in size of stream, dribbling, acute retention, or incontinence. MUSCULOSKELETAL: Negative for pain, swelling, redness or heat of muscles or joints, limitation of motion, muscular weakness, atrophy, or cramps. NEUROLOGIC/PSYCHIATRIC: Negative for convulsions, paralyses, tremor, incoordination, paresthesias, difficulties with memory or speech, sensory or motor disturbances, muscular coordination (ataxia, tremor), emotional problems, anxiety, depression, previous psychiatric care, unusual perceptions, or hallucinations. HEMATOLOGIC: Negative for anemia, bleeding tendency, previous transfusions and reactions, or Rh incompatibility. ENDOCRINE: History of hypothyroidism. GENITOURINARY: History of enlarged prostate. PHYSICAL EXAMINATION: VITAL SIGNS: Temperature 98.3, blood pressure 133/59, pulse 68, respiratory rate 20, saturations 97% on room air. GENERAL APPEARANCE: Well-developed, well-nourished male in no acute distress. ORIENTATION: Alert and oriented to person, place, and time. HEENT: Normocephalic, atraumatic, sclerae anicteric, no nasal discharge, oropharynx clear, dentition is good. SKIN: Normal color, texture, and turgor. No rashes noted throughout the trunk, bilateral upper extremities, and bilateral lower extremities. NECK: Supple, nontender, without lymphadenopathy. No thyromegaly, no masses. CARDIAC: Regular rate and rhythm. LUNGS: Clear to auscultation bilaterally, with symmetric chest rise. ABDOMEN: Soft, nontender, nondistended. MUSCULOSKELETAL: The patient walks with a walker fairly well with no significant limp. The left knee reveals an incision that is clean, dry, and intact with no redness or drainage. There is a mild effusion. Knee has range of motion is 0-90 degrees and no irritability. No varus or valgus instability. He is able to straight leg raise with no extensor lag. Motor strength is 5/5 in the quadriceps, tibialis anterior, extensor hallucis longus, gastroc-soleus, and peroneals bilaterally. Sensation is intact to light touch throughout both lower extremities. There are 2+ palpable dorsalis pedis and posterior tibial pulses, with capillary refill less than 2 seconds in all 5 digits bilaterally. There is no distal edema. IMAGING: X-rays today show that the total knee arthroplasty remains well aligned and well fixed. There are no signs of loosening. PROCEDURE: After obtaining verbal consent, prepping the superolateral aspect of the left knee with Betadine, I aspirated 30 mL of blood from the knee. There is no purulent component. The patient tolerated the procedure well with no adverse reaction. LABORATORY DATA: Urine specimen, 01/08/2017, reveals 60-70 white blood cells with many bacteria, positive nitrites. The gross appearance was cloudy. Cultures are negative after 24 hours. A CBC done yesterday on 01/09/2017 revealed a white blood cell count of 19.4, hematocrit 30.1, platelet count 331, neutrophils are 80%. ASSESSMENT AND PLAN: 1. Probable urinary tract infection. 2. Status post left total knee arthroplasty. DISCUSSION: His knee itself looks benign. There was some blood in the knee, but it does not have purulent component, it has no redness or drainage. It is more concerning that his urine has 60-70 white blood cells, and he has had dysuria. We will have him admitted to the hospital for further evaluation and management. Dr. Escobedo of infectious disease has been called to consult on the patient. The patient has been started on vancomycin and meropenem for broad spectrum antibiotics. He will continue with aspirin 325 mg twice daily for DVT prophylaxis. He should ice and elevate the knee. We removed the tricia and Steri-Stripped the wound today. He will continue with physical therapy for gait training and range of motion exercises. We will continue to follow along in the hospital with Dr. Raines and Dr. Escobedo, and have Dr. Escobedo titrate the antibiotics as needed. The patient will have blood cultures drawn as well, and the fluid that we aspirated from the knee will be sent to the laboratory for cell count, differential, and culture and sensitivity. Dictated By: DINO ALICEA MD EZ/NTS Conf#: [id number] DID#: [id number] CC: NAZ ESCOBEOD MD; KALEY RAINES MD;*EndCC* MTDD
[2017-01-11 05:26] LABS: INR 1.04; PROTIME 13.6 Sec (12.2-14.2); PT RATIO 1.1
[2017-01-11 05:34] LABS: ALBUMIN 3.2 g/dl (3.3-4.9)
[2017-01-11 05:35] LABS: POTASSIUM 4.3 mmol/L (3.5-5.1)
[2017-01-11 05:37] LABS: ALBUMIN/GLOBULIN RATIO 0.94; BILIRUBIN,INDIRECT 0.3 mg/dl (0-1.1); BILIRUBIN,TOTAL 0.3 mg/dl (0.2-1.3); CREATININE 1.04 mg/dl (0.61-1.24); TOTAL PROTEIN 6.6 g/dl (6.1-8.1)
[2017-01-11 05:38] LABS: CALCIUM 9.3 mg/dl (8.4-10.2)
[2017-01-11 05:55] LABS: MAGNESIUM 2.1 mg/dl (1.7-2.5); PHOSPHORUS 4.1 mg/dl (2.5-4.9)
[2017-01-11] MEDS: MEROPENEM 1 GM/100 ML (PMX) 100 ML IVPB SCH ×3 (06:07→22:06)
[2017-01-11] MEDS: LEVOTHYROXINE 100 MCG TAB PO SCH (06:07)
[2017-01-11] MEDS: PANTOPRAZOLE (EC) 40 MG TAB PO SCH (06:07)
[2017-01-11 06:27] LABS: ADD SCAN DIFF NO
[2017-01-11 06:28] LABS: BASOPHIL # 0.1 10^3/ul (0.0-0.1); BASOPHILS % 0.5 % (0.0-2.0); EOSINOPHILS # 0.6 10^3/ul (0.0-0.5); EOSINOPHILS % 4.8 % (0.0-7.0); HEMATOCRIT 30.6 % (42.0-52.0); HEMOGLOBIN 10.1 g/dl (14.0-18.0); LYMPHOCYTES # 2.2 10^3/ul (0.8-2.9); LYMPHOCYTES % 16.8 % (15.0-51.0); MEAN CORPUSCULAR HEMOGLOBIN 30.1 pg (29.0-33.0); MEAN CORPUSCULAR VOLUME 91.1 fl (82.0-101.0); MEAN PLATELET VOLUME 9.7 fl (7.4-10.4); MONOCYTES % 7.7 % (0.0-11.0); NEUTROPHIL # 8.8 10^3/ul (1.6-7.5); NEUTROPHILS % 67.3 % (39.0-77.0); PLATELET COUNT 379 10^3/UL (140-415); RED BLOOD COUNT 3.36 10^6/ul (4.70-6.10); RED CELL DISTRIBUTION WIDTH 12.6 % (11.5-14.5)
[2017-01-11] MEDS: INSULIN ASPART [NOVOLOG] 3 ML PEN SC SCH ×3 (07:20→17:25)
[2017-01-11 07:47] VITALS: BP 127/67; RESP 17
[2017-01-11] MEDS: VALSARTAN 160 MG TAB PO SCH (08:51)
[2017-01-11] MEDS: DOCUSATE SODIUM 250 MG CAP PO SCH ×2 (08:51→20:29)
[2017-01-11] MEDS: ALLOPURINOL 100 MG TAB PO SCH (08:51)
[2017-01-11] MEDS: MAGNESIUM OXIDE 400 MG TAB PO SCH ×2 (08:51→20:28)
[2017-01-11] MEDS: metFORMIN 500 MG TAB PO SCH ×2 (08:51→08:58)
[2017-01-11] MEDS: AZELASTINE 30 ML NAS SPRAY NASAL SCH ×2 (08:51→20:16)
--- NOTE | 2017-01-11 09:13 | PN ---
Date/Time of Note Date/Time of Note DATE: 01/11/17 TIME: 09:08 Assessment/Plan Lines/Catheters IV Catheter Type (from Nrsg): Peripheral IV Jackson in Place (from Nrsg): Yes Assessment/Plan Assessment/Plan UTI s/p left TKA. -Knee looks benign -Fluid from knee yesterday mostly blood. Follow cultures for now -Urine culture pending -Continue Vanco and Meropenem for now -Dr. Escobedo to see patient -OOB with PT -Pain meds -E.C. ASA 325 mg po bid plus bilateral LE SCDs for DVT prophylaxis Subjective 24 Hr Interval Summary Resting comfortably. Feels well. Jackson put in because of retention. On Vanco and Merepenem. Exam/Review of Systems Vital Signs Vitals Vital Signs Date Time Temp Pulse Resp B/P Pulse Ox O2 Delivery O2 Flow Rate FiO2 01/11/17 07:47 98.8 69 17 127/67 96 01/10/17 17:04 Room Air Intake and Output 01/10/17 01/10/17 01/11/17 15:00 23:00 07:00 Intake Total 100 ml 940 ml Output Total 1100 ml Balance 100 ml -160 ml Exam Free Text/Dictation Incision clean, dry, and intact without redness or drainage 5/5 Tibialis Anterior, EHL, Gastroc Soleus, Peroneals Normal sensation Palpable DP/PT, CR < 2 Sec No distal edema Doppler: Negataive for DVT bilaterally Synovial fluid: Gram stain: no organisms seen, 4+ WBC Cell count: 13,142 WBC with 90% PMNs Culture: pending Urine: 10-25 WBC, trace leukocyte esterase Results Result Diagram: 01/11/17 0428 01/11/17 0428 DINO ALICEA MD January 11, 2017 09:13
[2017-01-11] MEDS: ASPIRIN (EC) 325 MG TAB PO SCH ×2 (10:14→18:28)
--- NOTE | 2017-01-11 13:59 | CONS ---
Date/Time of Note Date/Time of Note DATE: 01/11/17 TIME: 13:47 Assessment/Plan Assessment/Plan Chief Complaint/Hosp Course 1) UTI most likely continue with vanco/merrem at present await maturation of urine cx, initial one was NGTD by report only current u/a has 10-25 wbc 2) s/p L TKR aspiration of knee was done and results are pending no outward appearance of infection though continue with vanco till cx results and cell count are available 3) HTN 4) BPH pt may have urinary retention he is complaining of pain with pickard and no documented urine retention noted will d/c pickard, have nurses do bladder training and will get repeat bladder scan if no urination for 6 hours Problems: Consultation Date/Type/Reason Admit Date/Time January 10, 2017 at 13:41 Date of Consultation: January 11, 2017 Type of Consultation: ID Hx of Present Illness pt had a L TKR about 10 days ago when he got home he noticed some dysuria, urine frequency and fevers He was started on levaquin He denies SOB but has some cough No diarrhea, abd pain pt was up walking around at home and pain to L knee is overall better no rashes or other joint pains pt is complaining of pain at pickard site Past Medical History HTN, hypothyroidism, GERD, hyperlipidemia Past Surgical History L TKR Social History Smoking Status: Former smoker Exam/Review of Systems Vital Signs Vitals Vital Signs Date Time Temp Pulse Resp B/P Pulse Ox O2 Delivery O2 Flow Rate FiO2 01/11/17 07:47 98.8 69 17 127/67 96 01/10/17 17:04 Room Air Intake and Output 01/10/17 01/10/17 01/11/17 15:00 23:00 07:00 Intake Total 100 ml 940 ml Output Total 1100 ml Balance 100 ml -160 ml Exam Constitutional: alert, oriented Head: normocephalic Eyes: nl sclera ENMT: mucosa pink and moist Neck: supple Respiratory: other (crackles at R base) Cardiovascular: regular rate and rhythm Gastrointestinal: non-tender, soft Extremities: other (L knee has slight increase in heat but no appreciable redness) Results Result Diagram: 01/11/17 0428 01/11/17 0428 Results 24 hrs Laboratory Tests Test 01/10/17 14:20 01/10/17 21:28 01/10/17 23:30 01/11/17 04:28 White Blood Count 15.7 H 13.0 H Red Blood Count 3.45 L 3.36 L Hemoglobin 10.4 L 10.1 L Hematocrit 31.2 L 30.6 L Mean Corpuscular Volume 90.4 91.1 Mean Corpuscular Hemoglobin 30.1 30.1 Mean Corpuscular Hemoglobin Concent 33.3 33.0 Red Cell Distribution Width 12.7 12.6 Platelet Count 368 # 379 Mean Platelet Volume 9.8 9.7 Neutrophils % 74.7 67.3 Lymphocytes % 10.9 L 16.8 Monocytes % 8.1 7.7 Eosinophils % 3.1 4.8 Basophils % 0.5 0.5 Nucleated Red Blood Cells % 0.0 0.0 Neutrophils # 11.8 H 8.8 H Lymphocytes # 1.7 2.2 Monocytes # 1.3 H 1.0 H Eosinophils # 0.5 0.6 H Basophils # 0.1 0.1 Nucleated Red Blood Cells # 0.0 0.0 Sodium Level 136 134 L Potassium Level 4.5 4.3 Chloride Level 99 99 Carbon Dioxide Level 24 25 Anion Gap 18 H 14 Blood Urea Nitrogen 26 H 24 H Creatinine 1.04 1.04 Glucose Level 117 116 Calcium Level 9.8 9.3 Total Bilirubin 0.2 0.3 Direct Bilirubin 0.00 0.00 Indirect Bilirubin 0.2 0.3 Aspartate Amino Transf (AST/SGOT) 47 H 43 Alanine Aminotransferase (ALT/SGPT) 77 H 74 H Alkaline Phosphatase 95 85 Total Protein 7.3 6.6 Albumin 3.6 3.2 L Globulin 3.70 H 3.40 H Albumin/Globulin Ratio 0.97 0.94 Lipase 89 Bedside Glucose 114 Urine Color LT. YELLOW Urine Clarity CLEAR Urine pH 6.5 Urine Specific [place] 1.015 Urine Ketones NEGATIVE Urine Nitrite NEGATIVE Urine Bilirubin NEGATIVE Urine Urobilinogen 0.2 E.U./dL Urine Leukocyte Esterase TRACE H Urine Microscopic RBC 2-5 Urine Microscopic WBC 10-25 Urine Squamous Epithelial Cells OCCASIONAL Urine Bacteria OCCASIONAL Urine Hemoglobin NEGATIVE Urine Glucose NEGATIVE Urine Total Protein NEGATIVE Prothrombin Time 13.6 Prothrombin Time Ratio 1.1 INR International Normalized Ratio 1.04 Activated Partial Thromboplast Time 31.0 Phosphorus Level 4.1 Magnesium Level 2.1 Test 01/11/17 07:48 01/11/17 11:55 Bedside Glucose 124 128 Medications Medications Current Medications Meropenem (Merrem 1 Gm/100 ml (Pmx)) 100 ml @ 200 mls/hr Q8 IVPB Last administered on 01/11/17 06:07; Admin Dose 200 MLS/HR; Start 01/10/17 at 14:30 Docusate Sodium (Colace) 250 mg BID PO Last administered on 01/11/17 08:51; Admin Dose 250 MG; Start 01/10/17 at 21:00 Latanoprost (Xalatan) 1 drop QHS BOTH EYES Last administered on 01/10/17 21:36 ; Admin Dose 1 DROP; Start 01/10/17 at 21:00 Magnesium Oxide (Mag-Ox 400) 400 mg BID PO Last administered on 01/11/17 08:51 ; Admin Dose 400 MG; Start 01/10/17 at 21:00 Tamsulosin HCl (Flomax) 0.8 mg HS PO Last administered on 01/10/17 21:36; Admin Dose 0.8 MG; Start 01/10/17 at 21:00 Tramadol HCl (Ultram) 50 mg Q6 PO Last administered on 01/11/17 11:56; Admin Dose 50 MG; Start 01/10/17 at 18:00 Memantine (Namenda) 10 mg HS PO ; Start 01/10/17 at 21:00 Pantoprazole (Protonix Tab) 40 mg DAILY@06 PO Last administered on 01/11/17 06 :07; Admin Dose 40 MG; Start 01/10/17 at 22:00 Valsartan (Diovan) 160 mg DAILY PO Last administered on 01/11/17 08:51; Admin Dose 160 MG; Start 01/10/17 at 18:00 Allopurinol (Zyloprim) 100 mg DAILY PO Last administered on 01/11/17 08:51; Admin Dose 100 MG; Start 01/11/17 at 09:00 Azelastine HCl 2 spray 2 spray BID NASAL ; Start 01/10/17 at 21:00 Sodium Chloride (NS) 1,000 ml @ 40 mls/hr Q24H IV Last administered on 19:17; Admin Dose 40 MLS/HR; Start 01/10/17 at 17:00 Ondansetron HCl (Zofran Inj) 4 mg Q6H PRN IV NAUSEA AND/OR VOMITING; Start at 17:00 Acetaminophen (Tylenol Tab) 650 mg Q6H PRN PO PAIN LEVEL 1-3 OR FEVER; Start at 17:00 Zolpidem Tartrate (Ambien) 5 mg QHS PRN PO SLEEP; Start 01/10/17 at 17:00 Acetaminophen/ Hydrocodone Bitart ([place] (7.5-325)) 1 tab Q6H PRN PO PAIN LEVEL 4-6; Start 01/10/17 at 17:00 Miscellaneous Information 1 ea NOTE XX ; Start 01/10/17 at 18:00 Glucose (Glutose) 15 gm Q15M PRN PO DECREASED GLUCOSE; Start 01/10/17 at 18:00 Glucose (Glutose) 22.5 gm Q15M PRN PO DECREASED GLUCOSE; Start 01/10/17 at 18: 00 Dextrose (D50w Syringe) 25 ml Q15M PRN IV DECREASED GLUCOSE; Start 01/10/17 at 18:00 Dextrose (D50w Syringe) 50 ml Q15M PRN IV DECREASED GLUCOSE; Start 01/10/17 at 18:00 Glucagon (Glucagen) 1 mg Q15M PRN IM DECREASED GLUCOSE; Start 01/10/17 at 18:00 Glucose (Glutose) 15 gm Q15M PRN BUCCAL DECREASED GLUCOSE; Start 01/10/17 at 18 :00 NAZ DEL RIO MD January 11, 2017 13:59
[2017-01-11] MEDS ORDERED: VANCOMYCIN IV PER PHARMACY XX SCH (14:30)
--- NOTE | 2017-01-11 15:15 | CONS ---
Date/Time of Note Date/Time of Note DATE: 01/11/17 TIME: 15:08 Consult Date/Type/Reason Admit Date/Time January 10, 2017 at 13:41 Initial Consult Date 01/11/17 Type of Consultation: Medicine Reason for Consultation Leukocytosis, transaminitis, BPH, HTN, hypothyroid, gout, DMII Ordering Provider: DINO ALICEA MD Subjective Patient doing well. Feeling better after IV abx. Denies fevers, chills, nausea, vomiting, dysuria, diarrhea, abdominal pain, chest pain. Does endorse constipation. Objective Vital Signs Date Time Temp Pulse Resp B/P Pulse Ox O2 Delivery O2 Flow Rate FiO2 01/11/17 07:47 98.8 69 17 127/67 96 01/10/17 17:04 Room Air Intake and Output 01/10/17 01/10/17 01/11/17 15:00 23:00 07:00 Intake Total 100 ml 940 ml Output Total 1100 ml Balance 100 ml -160 ml Exam Gen-NAD HEENT-op clear, no scleral icterus, mmm CV-rrr, HAROLDO RUSB Pulm-CTAB, no w/r/r Abd-soft, nt/ND, +BS Ext-no c/c/e L knee with incision c/d/i. Mildly warm, no cellulitis. Results/Medications Result Diagram: 01/11/17 0428 01/11/17 0428 Results 24 hrs Laboratory Tests Test 01/10/17 21:28 01/10/17 23:30 01/11/17 04:28 01/11/17 07:48 Bedside Glucose 114 124 Urine Color LT. YELLOW Urine Clarity CLEAR Urine pH 6.5 Urine Specific [place] 1.015 Urine Ketones NEGATIVE Urine Nitrite NEGATIVE Urine Bilirubin NEGATIVE Urine Urobilinogen 0.2 E.U./dL Urine Leukocyte Esterase TRACE H Urine Microscopic RBC 2-5 Urine Microscopic WBC 10-25 Urine Squamous Epithelial Cells OCCASIONAL Urine Bacteria OCCASIONAL Urine Hemoglobin NEGATIVE Urine Glucose NEGATIVE Urine Total Protein NEGATIVE White Blood Count 13.0 H Red Blood Count 3.36 L Hemoglobin 10.1 L Hematocrit 30.6 L Mean Corpuscular Volume 91.1 Mean Corpuscular Hemoglobin 30.1 Mean Corpuscular Hemoglobin Concent 33.0 Red Cell Distribution Width 12.6 Platelet Count 379 Mean Platelet Volume 9.7 Neutrophils % 67.3 Lymphocytes % 16.8 Monocytes % 7.7 Eosinophils % 4.8 Basophils % 0.5 Nucleated Red Blood Cells % 0.0 Neutrophils # 8.8 H Lymphocytes # 2.2 Monocytes # 1.0 H Eosinophils # 0.6 H Basophils # 0.1 Nucleated Red Blood Cells # 0.0 Prothrombin Time 13.6 Prothrombin Time Ratio 1.1 INR International Normalized Ratio 1.04 Activated Partial Thromboplast Time 31.0 Sodium Level 134 L Potassium Level 4.3 Chloride Level 99 Carbon Dioxide Level 25 Anion Gap 14 Blood Urea Nitrogen 24 H Creatinine 1.04 Glucose Level 116 Calcium Level 9.3 Phosphorus Level 4.1 Magnesium Level 2.1 Total Bilirubin 0.3 Direct Bilirubin 0.00 Indirect Bilirubin 0.3 Aspartate Amino Transf (AST/SGOT) 43 Alanine Aminotransferase (ALT/SGPT) 74 H Alkaline Phosphatase 85 Total Protein 6.6 Albumin 3.2 L Globulin 3.40 H Albumin/Globulin Ratio 0.94 Test 01/11/17 11:55 Bedside Glucose 128 Medications Current Medications Meropenem (Merrem 1 Gm/100 ml (Pmx)) 100 ml @ 200 mls/hr Q8 IVPB Last administered on 01/11/17 14:42; Admin Dose 200 MLS/HR; Start 01/10/17 at 14:30 Docusate Sodium (Colace) 250 mg BID PO Last administered on 01/11/17 08:51; Admin Dose 250 MG; Start 01/10/17 at 21:00 Latanoprost (Xalatan) 1 drop QHS BOTH EYES Last administered on 01/10/17 21:36 ; Admin Dose 1 DROP; Start 01/10/17 at 21:00 Magnesium Oxide (Mag-Ox 400) 400 mg BID PO Last administered on 01/11/17 08:51 ; Admin Dose 400 MG; Start 01/10/17 at 21:00 Tamsulosin HCl (Flomax) 0.8 mg HS PO Last administered on 01/10/17 21:36; Admin Dose 0.8 MG; Start 01/10/17 at 21:00 Tramadol HCl (Ultram) 50 mg Q6 PO Last administered on 01/11/17 11:56; Admin Dose 50 MG; Start 01/10/17 at 18:00 Memantine (Namenda) 10 mg HS PO ; Start 01/10/17 at 21:00 Pantoprazole (Protonix Tab) 40 mg DAILY@06 PO Last administered on 01/11/17 06 :07; Admin Dose 40 MG; Start 01/10/17 at 22:00 Valsartan (Diovan) 160 mg DAILY PO Last administered on 01/11/17 08:51; Admin Dose 160 MG; Start 01/10/17 at 18:00 Allopurinol (Zyloprim) 100 mg DAILY PO Last administered on 01/11/17 08:51; Admin Dose 100 MG; Start 01/11/17 at 09:00 Azelastine HCl 2 spray 2 spray BID NASAL ; Start 01/10/17 at 21:00 Sodium Chloride (NS) 1,000 ml @ 40 mls/hr Q24H IV Last administered on 19:17; Admin Dose 40 MLS/HR; Start 01/10/17 at 17:00 Ondansetron HCl (Zofran Inj) 4 mg Q6H PRN IV NAUSEA AND/OR VOMITING; Start at 17:00 Acetaminophen (Tylenol Tab) 650 mg Q6H PRN PO PAIN LEVEL 1-3 OR FEVER; Start at 17:00 Zolpidem Tartrate (Ambien) 5 mg QHS PRN PO SLEEP; Start 01/10/17 at 17:00 Acetaminophen/ Hydrocodone Bitart ([place] (7.5-325)) 1 tab Q6H PRN PO PAIN LEVEL 4-6; Start 01/10/17 at 17:00 Miscellaneous Information 1 ea NOTE XX ; Start 01/10/17 at 18:00 Glucose (Glutose) 15 gm Q15M PRN PO DECREASED GLUCOSE; Start 01/10/17 at 18:00 Glucose (Glutose) 22.5 gm Q15M PRN PO DECREASED GLUCOSE; Start 01/10/17 at 18: 00 Dextrose (D50w Syringe) 25 ml Q15M PRN IV DECREASED GLUCOSE; Start 01/10/17 at 18:00 Dextrose (D50w Syringe) 50 ml Q15M PRN IV DECREASED GLUCOSE; Start 01/10/17 at 18:00 Glucagon (Glucagen) 1 mg Q15M PRN IM DECREASED GLUCOSE; Start 01/10/17 at 18:00 Glucose 15 gm 15 gm Q15M PRN BUCCAL DECREASED GLUCOSE; Start 01/10/17 at 18:00 Vancomycin HCl/ Sodium Chloride (Vancocin/NS) 250 ml @ 83.333 mls/ hr Q24H IVPB ; Start 01/11/17 at 16:00 Assessment/Plan Chief Complaint/Hosp Course 86 y/o male pmh HTN, GERD, BPH, HLD, hypothyroidism, DMII s/p L TKA. Discharged 01/04. Readmitted 01/10 after 3 days of dysuria, fever. Prior to admission empirically started on levaquin but symptoms persisted. Seen by Dr. Alicea before admission admission and knee aspirate sent for cx. Problems: Additional Assessment/Plan #leukocytosis-given dysuria only localizing symptom, likely UTI -appreciate ID recs -empiric vanc, meropenem given low likelihood but possibility of septic joint -follow cultures -trend wbc #transaminitis-stable. Abd us neg. not clinically c/w biliary infection -ctm -hold statin #HTN-controlled -valsartan #BPH -flowmax #hypothyroidism -levothyroxine #gout -allopurinol #DMII-patient denies this diagnosis -refuses metformin and ss -ctm GRAY WEBSTER MD January 11, 2017 15:15
[2017-01-11] MEDS ORDERED: BISACODYL (EC) 5 MG TAB PO PRN (15:30)
[2017-01-11] MEDS: MAGNESIUM HYDROXIDE 30ML CUP PO PRN (15:34)
[2017-01-11 15:38] VITALS: BP 135/63; PULSE 72; RESP 20
[2017-01-11] MEDS: VANCOMYCIN 1.25 GM in SOD CHLORIDE 0.9% 250 ML IVPB SCH (16:37)
[2017-01-11] MEDS: SOD CHLORIDE 0.9% 1,000 ML IV SCH (17:00)
[2017-01-11 19:46] VITALS: BP 128/74; PULSE 68; RESP 18
[2017-01-11] MEDS: MEMANTINE 5 MG TAB PO SCH (20:17)
[2017-01-11] MEDS: TAMSULOSIN (SR) 0.4 MG CAP PO SCH (20:28)
[2017-01-11] MEDS: traZODone 50 MG TAB PO SCH (20:29)
[2017-01-11] MEDS: LATANOPROST 0.005% 2.5 ML OPH BOTH EYES SCH (20:31)
[2017-01-12 05:33] LABS: ADD SCAN DIFF NO
[2017-01-12 05:37] LABS: BASOPHIL # 0.1 10^3/ul (0.0-0.1); BASOPHILS % 0.6 % (0.0-2.0); EOSINOPHILS # 0.6 10^3/ul (0.0-0.5); EOSINOPHILS % 4.9 % (0.0-7.0); HEMATOCRIT 32.7 % (42.0-52.0); HEMOGLOBIN 10.7 g/dl (14.0-18.0); LYMPHOCYTES # 2.1 10^3/ul (0.8-2.9); LYMPHOCYTES % 16.6 % (15.0-51.0); MEAN CORPUSCULAR HEMOGLOBIN 29.7 pg (29.0-33.0); MEAN CORPUSCULAR HGB CONC 32.7 g/dl (32.0-37.0); MEAN CORPUSCULAR VOLUME 90.8 fl (82.0-101.0); MEAN PLATELET VOLUME 9.7 fl (7.4-10.4); MONOCYTES % 7.6 % (0.0-11.0); NEUTROPHIL # 8.5 10^3/ul (1.6-7.5); NEUTROPHILS % 68.1 % (39.0-77.0); PLATELET COUNT 390 10^3/UL (140-415); RED CELL DISTRIBUTION WIDTH 12.3 % (11.5-14.5); WHITE BLOOD COUNT 12.5 10^3/ul (4.8-10.8)
[2017-01-12 05:49] LABS: ALBUMIN 3.4 g/dl (3.3-4.9); BILIRUBIN,INDIRECT 0.2 mg/dl (0-1.1); BILIRUBIN,TOTAL 0.2 mg/dl (0.2-1.3); CALCIUM 9.6 mg/dl (8.4-10.2); CREATININE 0.94 mg/dl (0.61-1.24); POTASSIUM 4.9 mmol/L (3.5-5.1); TOTAL PROTEIN 6.8 g/dl (6.1-8.1)
[2017-01-12] MEDS: MEROPENEM 1 GM/100 ML (PMX) 100 ML IVPB SCH ×3 (05:58→21:35)
[2017-01-12] MEDS: traMADol 50 MG TAB PO SCH ×3 (05:59→18:23)
[2017-01-12] MEDS: LEVOTHYROXINE 100 MCG TAB PO SCH (05:59)
[2017-01-12] MEDS: PANTOPRAZOLE (EC) 40 MG TAB PO SCH (05:59)
[2017-01-12] MEDS: INSULIN ASPART [NOVOLOG] 3 ML PEN SC SCH ×3 (07:20→17:25)
[2017-01-12 07:27] VITALS: BP 125/80; RESP 20
[2017-01-12] MEDS: AZELASTINE 30 ML NAS SPRAY NASAL SCH ×2 (09:00→20:39)
[2017-01-12] MEDS: VALSARTAN 160 MG TAB PO SCH (09:36)
[2017-01-12] MEDS: ALLOPURINOL 100 MG TAB PO SCH (09:36)
[2017-01-12] MEDS: MAGNESIUM OXIDE 400 MG TAB PO SCH ×2 (09:36→20:39)
[2017-01-12] MEDS: ASPIRIN (EC) 325 MG TAB PO SCH ×2 (09:36→18:23)
[2017-01-12] MEDS: DOCUSATE SODIUM 250 MG CAP PO SCH ×2 (09:36→20:39)
[2017-01-12] MEDS: MAGNESIUM HYDROXIDE 30ML CUP PO PRN (09:39)
--- NOTE | 2017-01-12 12:01 | PN ---
Date/Time of Note Date/Time of Note DATE: 01/12/17 TIME: 11:57 Assessment/Plan Lines/Catheters IV Catheter Type (from Nrsg): Saline Lock Jackson in Place (from Nrsg): Yes Assessment/Plan Assessment/Plan S/P Left TKA. Has been afebrile. Knee and urine cultures negative. One out of two blood cultures positive. ? contaminant. -Spoke with Dr. Escobedo. Continue Vanco and Meropenem for now -Knee looks benign. Observe for now -OOB with PT -Pain meds -E.C. ASA 325 mg po bid plus bilateral SCDs Subjective 24 Hr Interval Summary Resting comfortably. Minimal pain left knee. On Vanco and Meropenem. Exam/Review of Systems Vital Signs Vitals Vital Signs Date Time Temp Pulse Resp B/P Pulse Ox O2 Delivery O2 Flow Rate FiO2 01/12/17 07:27 98.5 79 20 125/80 94 01/11/17 19:46 Room Air Intake and Output 01/11/17 01/11/17 01/12/17 15:00 23:00 07:00 Intake Total 1840 ml 1500 ml Output Total 700 ml 1300 ml Balance 1140 ml 200 ml Exam Free Text/Dictation Incision clean, dry, and intact without redness or drainage 5/5 Tibialis Anterior, EHL, Gastroc Soleus, Peroneals Normal sensation Palpable DP/PT, CR < 2 Sec No distal edema Knee cultures: No growth x 48 hours Urine cultures: No growth x 48 hours Blood Cultures: 1 bottle growing GPC, other bottle no growth Results Result Diagram: 01/12/1741901/12/17419 DINO ALICEA MD January 12, 2017 12:01
--- NOTE | 2017-01-12 14:06 | CONS ---
Date/Time of Note Date/Time of Note DATE: 01/12/17 TIME: 14:01 Consult Date/Type/Reason Admit Date/Time January 10, 2017 at 13:41 Initial Consult Date 01/11/17 Type of Consultation: Medicine Reason for Consultation bacteremia, leukocytosis, transaminitis, HTN, BPH, hypothyroid, gout Ordering Provider: DINO ALICEA MD Subjective Patient doing well. Feeling better after IV abx. Denies fevers, chills, nausea, vomiting, dysuria, diarrhea, abdominal pain, chest pain. Does continue to endorse constipation. Urine culture and joint cultures continue to be negative but blood cultures growing Gram + cocci in clusters/chains in 1/2 tubes. Objective Vital Signs Date Time Temp Pulse Resp B/P Pulse Ox O2 Delivery O2 Flow Rate FiO2 01/12/17 07:27 98.5 79 20 125/80 94 01/11/17 19:46 Room Air Intake and Output 01/11/17 01/11/17 01/12/17 15:00 23:00 07:00 Intake Total 1840 ml 1500 ml Output Total 700 ml 1300 ml Balance 1140 ml 200 ml Exam Gen-NAD HEENT-op clear, no scleral icterus, mmm CV-rrr, HAROLDO RUSB Pulm-CTAB, no w/r/r Abd-soft, nt/ND, +BS Ext-no c/c/e L knee with incision c/d/i. Mildly warm, no cellulitis. Results/Medications Result Diagram: 01/12/17 0420 01/12/17 0420 Results 24 hrs Laboratory Tests Test 01/11/17 17:15 01/12/17 04:20 01/12/17 08:28 01/12/17 12:30 Bedside Glucose 110 131 113 White Blood Count 12.5 H Red Blood Count 3.60 L Hemoglobin 10.7 L Hematocrit 32.7 L Mean Corpuscular Volume 90.8 Mean Corpuscular Hemoglobin 29.7 Mean Corpuscular Hemoglobin Concent 32.7 Red Cell Distribution Width 12.3 Platelet Count 390 Mean Platelet Volume 9.7 Neutrophils % 68.1 Lymphocytes % 16.6 Monocytes % 7.6 Eosinophils % 4.9 Basophils % 0.6 Nucleated Red Blood Cells % 0.0 Neutrophils # 8.5 H Lymphocytes # 2.1 Monocytes # 1.0 H Eosinophils # 0.6 H Basophils # 0.1 Nucleated Red Blood Cells # 0.0 Sodium Level 133 L Potassium Level 4.9 Chloride Level 102 Carbon Dioxide Level 25 Anion Gap 11 Blood Urea Nitrogen 18 Creatinine 0.94 Glucose Level 136 Calcium Level 9.6 Total Bilirubin 0.2 Direct Bilirubin 0.00 Indirect Bilirubin 0.2 Aspartate Amino Transf (AST/SGOT) 44 Alanine Aminotransferase (ALT/SGPT) 78 H Alkaline Phosphatase 86 Total Protein 6.8 Albumin 3.4 Globulin 3.40 H Albumin/Globulin Ratio 1.00 Medications Current Medications Meropenem (Merrem 1 Gm/100 ml (Pmx)) 100 ml @ 200 mls/hr Q8 IVPB Last administered on 01/12/17 13:06; Admin Dose 200 MLS/HR; Start 01/10/17 at 14:30 Docusate Sodium (Colace) 250 mg BID PO Last administered on 01/12/17 09:36; Admin Dose 250 MG; Start 01/10/17 at 21:00 Latanoprost (Xalatan) 1 drop QHS BOTH EYES Last administered on 01/11/17 20:31 ; Admin Dose 1 DROP; Start 01/10/17 at 21:00 Magnesium Oxide (Mag-Ox 400) 400 mg BID PO Last administered on 01/12/17 09:36 ; Admin Dose 400 MG; Start 01/10/17 at 21:00 Tamsulosin HCl (Flomax) 0.8 mg HS PO Last administered on 01/11/17 20:28; Admin Dose 0.8 MG; Start 01/10/17 at 21:00 Tramadol HCl (Ultram) 50 mg Q6 PO Last administered on 01/12/17 13:09; Admin Dose 50 MG; Start 01/10/17 at 18:00 Memantine (Namenda) 10 mg HS PO ; Start 01/10/17 at 21:00 Pantoprazole (Protonix Tab) 40 mg DAILY@06 PO Last administered on 01/12/17 05 :59; Admin Dose 40 MG; Start 01/10/17 at 22:00 Valsartan (Diovan) 160 mg DAILY PO Last administered on 01/12/17 09:36; Admin Dose 160 MG; Start 01/10/17 at 18:00 Allopurinol (Zyloprim) 100 mg DAILY PO Last administered on 01/12/17 09:36; Admin Dose 100 MG; Start 01/11/17 at 09:00 Azelastine HCl 2 spray 2 spray BID NASAL ; Start 01/10/17 at 21:00 Sodium Chloride (NS) 1,000 ml @ 40 mls/hr Q24H IV Last administered on 19:17; Admin Dose 40 MLS/HR; Start 01/10/17 at 17:00 Ondansetron HCl (Zofran Inj) 4 mg Q6H PRN IV NAUSEA AND/OR VOMITING; Start at 17:00 Acetaminophen (Tylenol Tab) 650 mg Q6H PRN PO PAIN LEVEL 1-3 OR FEVER; Start at 17:00 Acetaminophen/ Hydrocodone Bitart ([place] (7.5-325)) 1 tab Q6H PRN PO PAIN LEVEL 4-6; Start 01/10/17 at 17:00 Miscellaneous Information 1 ea NOTE XX ; Start 01/10/17 at 18:00 Glucose (Glutose) 15 gm Q15M PRN PO DECREASED GLUCOSE; Start 01/10/17 at 18:00 Glucose (Glutose) 22.5 gm Q15M PRN PO DECREASED GLUCOSE; Start 01/10/17 at 18: 00 Dextrose (D50w Syringe) 25 ml Q15M PRN IV DECREASED GLUCOSE; Start 01/10/17 at 18:00 Dextrose (D50w Syringe) 50 ml Q15M PRN IV DECREASED GLUCOSE; Start 01/10/17 at 18:00 Glucagon (Glucagen) 1 mg Q15M PRN IM DECREASED GLUCOSE; Start 01/10/17 at 18:00 Glucose 15 gm 15 gm Q15M PRN BUCCAL DECREASED GLUCOSE; Start 01/10/17 at 18:00 Vancomycin HCl/ Sodium Chloride (Vancocin/NS) 250 ml @ 83.333 mls/ hr Q24H IVPB Last administered on 01/11/17 16:37; Admin Dose 83.333 MLS/HR; Start at 16:00 Bisacodyl (Dulcolax) 5 mg DAILY PRN PO CONSTIPATION; Start 01/11/17 at 15:30 Magnesium Hydroxide (Milk Of Mag) 30 ml DAILY PRN PO CONSTIPATION Last administered on 01/12/17 09:39; Admin Dose 30 ML; Start 01/11/17 at 15:30 Trazodone HCl (Desyrel) 50 mg HS PO Last administered on 01/11/17t 20:29; Admin Dose 50 MG; Start 01/11/17 at 21:00 Simethicone (Mylicon) 80 mg TID PRN PO DISTENSION/GAS/BLOATING; Start 01/11/17 at 15:30 Assessment/Plan Chief Complaint/Hosp Course 86 y/o male pmh HTN, GERD, BPH, HLD, hypothyroidism, DMII s/p L TKA. Discharged 01/04. Readmitted 01/10 after 3 days of dysuria, fever. Prior to admission empirically started on levaquin but symptoms persisted. Seen by Dr. Alicea before admission admission and knee aspirate sent for cx. Problems: Additional Assessment/Plan #leukocytosis-improving -appreciate ID recs -empiric vanc, meropenem for now -follow cultures, 1/2 with gram + cocci in chain/clusters. Await identification -have ordered second set of blood cultures from today. -if this is a true pathogenic organism may need ECHO to rule out vegitation -ctm #bacteremia- -see above #transaminitis-stable. Abd us neg. not clinically c/w biliary infection -ctm -hold statin #constipation -continue bowel regimen #HTN-controlled -valsartan #BPH -flowmax #hypothyroidism -levothyroxine #gout -allopurinol #DMII-patient denies this diagnosis -refuses metformin and ss -ctm GRAY WEBSTER MD January 12, 2017 14:06
--- NOTE | 2017-01-12 16:18 | CONS ---
Date/Time of Note Date/Time of Note DATE: 01/12/17 TIME: 16:12 Assessment/Plan Assessment/Plan Chief Complaint/Hosp Course 1) UTI most likely continue with vanco/merrem at present await maturation of urine cx, initial one was NGTD by report only current u/a has 10-25 wbc 01/12 - urine cx was negative repeat u/a 2) s/p L TKR aspiration of knee was done and results are pending no outward appearance of infection though continue with vanco till cx results and cell count are available 01/12 - cell count from knee joint fluid was 13K and 90% PMN's, cx are NGTD continue with vanco/merrem, await final report 3) HTN 4) BPH pt may have urinary retention he is complaining of pain with pickard and no documented urine retention noted will d/c pickard, have nurses do bladder training and will get repeat bladder scan if no urination for 6 hours 01/12 - pt states he is urinating but has some dysuria urine cx was negative 5) GPC in blood cx, one set only 01/12 - await ID, continue with vanco Problems: Consultation Date/Type/Reason Admit Date/Time January 10, 2017 at 13:41 Initial Consult Date 01/11/17 Type of Consultation: ID Referring Provider: DINO ALICEA MD 24 HR Interval Summary Free Text/Dictation pt is feeling better no V no BM despite MOM breathing is ok Exam/Review of Systems Vital Signs Vitals Vital Signs Date Time Temp Pulse Resp B/P Pulse Ox O2 Delivery O2 Flow Rate FiO2 01/12/17 07:27 98.5 79 20 125/80 94 01/11/17 19:46 Room Air Intake and Output 01/11/17 01/11/17 01/12/17 14:59 22:59 06:59 Intake Total 1840 ml 1500 ml Output Total 700 ml 1300 ml Balance 1140 ml 200 ml Exam Constitutional: alert, oriented Head: normocephalic Eyes: nl conjunctiva, nl sclera ENMT: mucosa pink and moist Respiratory: clear to auscultation Cardiovascular: regular rate and rhythm Gastrointestinal: non-tender, soft Extremities: other (inferior aspect of L knee surgical site is mild redness) Results Result Diagram: 01/12/1741901/12/17419 Results 24 hrs Laboratory Tests Test 01/11/17 17:15 01/12/17 04:20 01/12/17 08:28 01/12/17 12:30 Bedside Glucose 110 131 113 White Blood Count 12.5 H Red Blood Count 3.60 L Hemoglobin 10.7 L Hematocrit 32.7 L Mean Corpuscular Volume 90.8 Mean Corpuscular Hemoglobin 29.7 Mean Corpuscular Hemoglobin Concent 32.7 Red Cell Distribution Width 12.3 Platelet Count 390 Mean Platelet Volume 9.7 Neutrophils % 68.1 Lymphocytes % 16.6 Monocytes % 7.6 Eosinophils % 4.9 Basophils % 0.6 Nucleated Red Blood Cells % 0.0 Neutrophils # 8.5 H Lymphocytes # 2.1 Monocytes # 1.0 H Eosinophils # 0.6 H Basophils # 0.1 Nucleated Red Blood Cells # 0.0 Sodium Level 133 L Potassium Level 4.9 Chloride Level 102 Carbon Dioxide Level 25 Anion Gap 11 Blood Urea Nitrogen 18 Creatinine 0.94 Glucose Level 136 Calcium Level 9.6 Total Bilirubin 0.2 Direct Bilirubin 0.00 Indirect Bilirubin 0.2 Aspartate Amino Transf (AST/SGOT) 44 Alanine Aminotransferase (ALT/SGPT) 78 H Alkaline Phosphatase 86 Total Protein 6.8 Albumin 3.4 Globulin 3.40 H Albumin/Globulin Ratio 1.00 Medications Medications Current Medications Meropenem (Merrem 1 Gm/100 ml (Pmx)) 100 ml @ 200 mls/hr Q8 IVPB Last administered on 01/12/17 13:06; Admin Dose 200 MLS/HR; Start 01/10/17 at 14:30 Docusate Sodium (Colace) 250 mg BID PO Last administered on 01/12/17 09:36; Admin Dose 250 MG; Start 01/10/17 at 21:00 Latanoprost (Xalatan) 1 drop QHS BOTH EYES Last administered on 01/11/17 20:31 ; Admin Dose 1 DROP; Start 01/10/17 at 21:00 Magnesium Oxide (Mag-Ox 400) 400 mg BID PO Last administered on 01/12/17 09:36 ; Admin Dose 400 MG; Start 01/10/17 at 21:00 Tamsulosin HCl (Flomax) 0.8 mg HS PO Last administered on 01/11/17 20:28; Admin Dose 0.8 MG; Start 01/10/17 at 21:00 Tramadol HCl (Ultram) 50 mg Q6 PO Last administered on 01/12/17 13:09; Admin Dose 50 MG; Start 01/10/17 at 18:00 Memantine (Namenda) 10 mg HS PO ; Start 01/10/17 at 21:00 Pantoprazole (Protonix Tab) 40 mg DAILY@06 PO Last administered on 01/12/17 05 :59; Admin Dose 40 MG; Start 01/10/17 at 22:00 Valsartan (Diovan) 160 mg DAILY PO Last administered on 01/12/17 09:36; Admin Dose 160 MG; Start 01/10/17 at 18:00 Allopurinol (Zyloprim) 100 mg DAILY PO Last administered on 01/12/17 09:36; Admin Dose 100 MG; Start 01/11/17 at 09:00 Azelastine HCl 2 spray 2 spray BID NASAL ; Start 01/10/17 at 21:00 Sodium Chloride (NS) 1,000 ml @ 40 mls/hr Q24H IV Last administered on 19:17; Admin Dose 40 MLS/HR; Start 01/10/17 at 17:00 Ondansetron HCl (Zofran Inj) 4 mg Q6H PRN IV NAUSEA AND/OR VOMITING; Start at 17:00 Acetaminophen (Tylenol Tab) 650 mg Q6H PRN PO PAIN LEVEL 1-3 OR FEVER; Start at 17:00 Acetaminophen/ Hydrocodone Bitart ([place] (7.5-325)) 1 tab Q6H PRN PO PAIN LEVEL 4-6; Start 01/10/17 at 17:00 Miscellaneous Information 1 ea NOTE XX ; Start 01/10/17 at 18:00 Glucose (Glutose) 15 gm Q15M PRN PO DECREASED GLUCOSE; Start 01/10/17 at 18:00 Glucose (Glutose) 22.5 gm Q15M PRN PO DECREASED GLUCOSE; Start 01/10/17 at 18: 00 Dextrose (D50w Syringe) 25 ml Q15M PRN IV DECREASED GLUCOSE; Start 01/10/17 at 18:00 Dextrose (D50w Syringe) 50 ml Q15M PRN IV DECREASED GLUCOSE; Start 01/10/17 at 18:00 Glucagon (Glucagen) 1 mg Q15M PRN IM DECREASED GLUCOSE; Start 01/10/17 at 18:00 Glucose 15 gm 15 gm Q15M PRN BUCCAL DECREASED GLUCOSE; Start 01/10/17 at 18:00 Vancomycin HCl/ Sodium Chloride (Vancocin/NS) 250 ml @ 83.333 mls/ hr Q24H IVPB Last administered on 01/11/17 16:37; Admin Dose 83.333 MLS/HR; Start at 16:00 Bisacodyl (Dulcolax) 5 mg DAILY PRN PO CONSTIPATION; Start 01/11/17 at 15:30 Magnesium Hydroxide (Milk Of Mag) 30 ml DAILY PRN PO CONSTIPATION Last administered on 01/12/17 09:39; Admin Dose 30 ML; Start 01/11/17 at 15:30 Trazodone HCl (Desyrel) 50 mg HS PO Last administered on 01/11/17 20:29; Admin Dose 50 MG; Start 01/11/17 at 21:00 Simethicone (Mylicon) 80 mg TID PRN PO DISTENSION/GAS/BLOATING; Start 01/11/17 at 15:30 Polyethylene Glycol (Miralax) 17 gm DAILY PO ; Start 01/12/17 at 14:00 NAZ DEL RIO MD January 12, 2017 16:18
[2017-01-12] MEDS: VANCOMYCIN 1.25 GM in SOD CHLORIDE 0.9% 250 ML IVPB SCH (16:54)
[2017-01-12] MEDS: POLYETHYLENE GLYCOL 17 GM PACKET PO SCH (16:54)
[2017-01-12] MEDS: SOD CHLORIDE 0.9% 1,000 ML IV SCH (17:04)
[2017-01-12 19:33] VITALS: BP 143/75; RESP 18
[2017-01-12] MEDS: LATANOPROST 0.005% 2.5 ML OPH BOTH EYES SCH (20:38)
[2017-01-12] MEDS: MEMANTINE 5 MG TAB PO SCH ×2 (20:39→20:43)
[2017-01-12] MEDS: traZODone 50 MG TAB PO SCH (20:39)
[2017-01-12] MEDS: TAMSULOSIN (SR) 0.4 MG CAP PO SCH (20:39)
[2017-01-12 21:54] LABS: ADD UMIC NO; URINE BILIRUBIN (Dip) NEGATIVE (NEGATIVE); URINE BLOOD (Dip) NEGATIVE (NEGATIVE); URINE COLOR LT. YELLOW (YELLOW); URINE GLUCOSE (Dip) NEGATIVE (NEGATIVE); URINE KETONES (Dip) NEGATIVE (NEGATIVE); URINE LEUKOCYTE ESTERASE (Dip) NEGATIVE (NEGATIVE); URINE NITRITE (Dip) NEGATIVE (NEGATIVE); URINE TOTAL PROTEIN (Dip) NEGATIVE (NEGATIVE); URINE UROBILINOGEN (Dip) 0.2 E.U./dL (0.1-1.0)
[2017-01-13] MEDS: traMADol 50 MG TAB PO SCH ×4 (00:09→18:06)
[2017-01-13 05:04] LABS: ADD SCAN DIFF NO
[2017-01-13 05:10] LABS: BASOPHIL # 0.1 10^3/ul (0.0-0.1); BASOPHILS % 0.6 % (0.0-2.0); EOSINOPHILS # 0.7 10^3/ul (0.0-0.5); EOSINOPHILS % 5.2 % (0.0-7.0); HEMATOCRIT 33.5 % (42.0-52.0); HEMOGLOBIN 10.6 g/dl (14.0-18.0); LYMPHOCYTES # 1.9 10^3/ul (0.8-2.9); MEAN CORPUSCULAR HGB CONC 31.6 g/dl (32.0-37.0); MEAN CORPUSCULAR VOLUME 91.5 fl (82.0-101.0); MEAN PLATELET VOLUME 9.3 fl (7.4-10.4); MONOCYTE # 0.9 10^3/ul (0.3-0.9); MONOCYTES % 7.3 % (0.0-11.0); NEUTROPHIL # 8.8 10^3/ul (1.6-7.5); NEUTROPHILS % 70.1 % (39.0-77.0); PLATELET COUNT 392 10^3/UL (140-415); RED BLOOD COUNT 3.66 10^6/ul (4.70-6.10); RED CELL DISTRIBUTION WIDTH 12.5 % (11.5-14.5); WHITE BLOOD COUNT 12.6 10^3/ul (4.8-10.8)
[2017-01-13 05:26] LABS: POTASSIUM 4.5 mmol/L (3.5-5.1)
[2017-01-13 05:28] LABS: CREATININE 0.87 mg/dl (0.61-1.24)
[2017-01-13 05:29] LABS: CALCIUM 9.2 mg/dl (8.4-10.2); MAGNESIUM 2.3 mg/dl (1.7-2.5)
[2017-01-13] MEDS: MEROPENEM 1 GM/100 ML (PMX) 100 ML IVPB SCH (06:13)
[2017-01-13] MEDS: LEVOTHYROXINE 100 MCG TAB PO SCH (06:13)
[2017-01-13] MEDS: PANTOPRAZOLE (EC) 40 MG TAB PO SCH (06:14)
[2017-01-13] MEDS: INSULIN ASPART [NOVOLOG] 3 ML PEN SC SCH ×3 (07:20→17:25)
--- NOTE | 2017-01-13 08:28 | CONS ---
Date/Time of Note Date/Time of Note DATE: 01/13/17 TIME: 08:24 Assessment/Plan Assessment/Plan Additional Assessment/Plan 1. Temp and leukocytosis, 1/2 blood cult are +, to rev with ID 2. Gastroesophageal reflux, asx 3. BPH, asx 4. Hyperlipidemia. 5. Hypothyroidism. 6. Temp and leukocytosis, 1/2 blood cult are +, to rev with ID 7. Abnl liver tests, will repeat and not resume statin Consultation Date/Type/Reason Admit Date/Time January 10, 2017 at 13:41 Initial Consult Date 01/11/17 Type of Consultation: ID Referring Provider: DINO ALICEA MD Detailed Summary Respiratory: No cough, No shortness of breath Cardiovascular: No chest pain Gastrointestinal: no complaints Genitourinary: no complaints Musculoskeletal: bone/joint pain (mild right knee pain) Exam/Review of Systems Vital Signs Vitals Vital Signs Date Time Temp Pulse Resp B/P Pulse Ox O2 Delivery O2 Flow Rate FiO2 01/12/17 19:33 98.6 90 18 143/75 98 01/11/17 19:46 Room Air Intake and Output 01/12/17 01/12/17 01/13/17 15:00 23:00 07:00 Intake Total 100 ml 2190 ml 960 ml Output Total 1250 ml 1000 ml Balance 100 ml 940 ml -40 ml Exam Neck: No jvd Respiratory: clear to auscultation Cardiovascular: regular rate and rhythm Gastrointestinal: soft Musculoskeletal: joint tenderness (right knee is not swollen, warm or red) Extremities: No edema (adn no calf tend) Results Result Diagram: 01/13/17 0445 01/13/17 0445 Results 24 hrs Laboratory Tests Test 01/12/17 08:28 01/12/17 12:30 01/12/17 17:43 01/12/17 19:20 Bedside Glucose 131 113 108 Urine Color LT. YELLOW Urine Clarity CLEAR Urine pH 7.0 Urine Specific [place] 1.015 Urine Ketones NEGATIVE Urine Nitrite NEGATIVE Urine Bilirubin NEGATIVE Urine Urobilinogen 0.2 E.U./dL Urine Leukocyte Esterase NEGATIVE Urine Hemoglobin NEGATIVE Urine Glucose NEGATIVE Urine Total Protein NEGATIVE Test 01/13/17 04:45 White Blood Count 12.6 H Red Blood Count 3.66 L Hemoglobin 10.6 L Hematocrit 33.5 L Mean Corpuscular Volume 91.5 Mean Corpuscular Hemoglobin 29.0 Mean Corpuscular Hemoglobin Concent 31.6 L Red Cell Distribution Width 12.5 Platelet Count 392 Mean Platelet Volume 9.3 Neutrophils % 70.1 Lymphocytes % 15.0 Monocytes % 7.3 Eosinophils % 5.2 Basophils % 0.6 Nucleated Red Blood Cells % 0.0 Neutrophils # 8.8 H Lymphocytes # 1.9 Monocytes # 0.9 Eosinophils # 0.7 H Basophils # 0.1 Nucleated Red Blood Cells # 0.0 Sodium Level 136 Potassium Level 4.5 Chloride Level 101 Carbon Dioxide Level 25 Anion Gap 15 Blood Urea Nitrogen 22 H Creatinine 0.87 Glucose Level 116 Calcium Level 9.2 Magnesium Level 2.3 Medications Medications Current Medications Meropenem (Merrem 1 Gm/100 ml (Pmx)) 100 ml @ 200 mls/hr Q8 IVPB Last administered on 01/13/17 06:13; Admin Dose 200 MLS/HR; Start 01/10/17 at 14:30 Docusate Sodium (Colace) 250 mg BID PO Last administered on 01/12/17 20:39; Admin Dose 250 MG; Start 01/10/17 at 21:00 Latanoprost (Xalatan) 1 drop QHS BOTH EYES Last administered on 01/12/17 20:38 ; Admin Dose 1 DROP; Start 01/10/17 at 21:00 Magnesium Oxide (Mag-Ox 400) 400 mg BID PO Last administered on 01/12/17 20:39 ; Admin Dose 400 MG; Start 01/10/17 at 21:00 Tamsulosin HCl (Flomax) 0.8 mg HS PO Last administered on 01/12/17 20:39; Admin Dose 0.8 MG; Start 01/10/17 at 21:00 Tramadol HCl (Ultram) 50 mg Q6 PO Last administered on 01/13/17 06:14; Admin Dose 50 MG; Start 01/10/17 at 18:00 Memantine (Namenda) 10 mg HS PO ; Start 01/10/17 at 21:00 Pantoprazole (Protonix Tab) 40 mg DAILY@06 PO Last administered on 01/13/17 06 :14; Admin Dose 40 MG; Start 01/10/17 at 22:00 Valsartan (Diovan) 160 mg DAILY PO Last administered on 01/12/17 09:36; Admin Dose 160 MG; Start 01/10/17 at 18:00 Allopurinol (Zyloprim) 100 mg DAILY PO Last administered on 01/12/17 09:36; Admin Dose 100 MG; Start 01/11/17 at 09:00 Azelastine HCl 2 spray 2 spray BID NASAL ; Start 01/10/17 at 21:00 Sodium Chloride (NS) 1,000 ml @ 40 mls/hr Q24H IV Last administered on 17:04; Admin Dose 40 MLS/HR; Start 01/10/17 at 17:00 Ondansetron HCl (Zofran Inj) 4 mg Q6H PRN IV NAUSEA AND/OR VOMITING; Start at 17:00 Acetaminophen (Tylenol Tab) 650 mg Q6H PRN PO PAIN LEVEL 1-3 OR FEVER; Start at 17:00 Acetaminophen/ Hydrocodone Bitart ([place] (7.5-325)) 1 tab Q6H PRN PO PAIN LEVEL 4-6; Start 01/10/17 at 17:00 Miscellaneous Information 1 ea NOTE XX ; Start 01/10/17 at 18:00 Glucose (Glutose) 15 gm Q15M PRN PO DECREASED GLUCOSE; Start 01/10/17 at 18:00 Glucose (Glutose) 22.5 gm Q15M PRN PO DECREASED GLUCOSE; Start 01/10/17 at 18: 00 Dextrose (D50w Syringe) 25 ml Q15M PRN IV DECREASED GLUCOSE; Start 01/10/17 at 18:00 Dextrose (D50w Syringe) 50 ml Q15M PRN IV DECREASED GLUCOSE; Start 01/10/17 at 18:00 Glucagon (Glucagen) 1 mg Q15M PRN IM DECREASED GLUCOSE; Start 01/10/17 at 18:00 Glucose 15 gm 15 gm Q15M PRN BUCCAL DECREASED GLUCOSE; Start 01/10/17 at 18:00 Vancomycin HCl/ Sodium Chloride (Vancocin/NS) 250 ml @ 83.333 mls/ hr Q24H IVPB Last administered on 01/12/17 16:54; Admin Dose 83.333 MLS/HR; Start at 16:00 Bisacodyl (Dulcolax) 5 mg DAILY PRN PO CONSTIPATION; Start 01/11/17 at 15:30 Magnesium Hydroxide (Milk Of Mag) 30 ml DAILY PRN PO CONSTIPATION Last administered on 01/12/17 09:39; Admin Dose 30 ML; Start 01/11/17 at 15:30 Trazodone HCl (Desyrel) 50 mg HS PO Last administered on 01/12/17 20:39; Admin Dose 50 MG; Start 01/11/17 at 21:00 Simethicone (Mylicon) 80 mg TID PRN PO DISTENSION/GAS/BLOATING; Start 01/11/17 at 15:30 Polyethylene Glycol (Miralax) 17 gm DAILY PO Last administered on 01/12/17 16: 54; Admin Dose 17 GM; Start 01/12/17 at 14:00 KALEY DA SILVA MD January 13, 2017 08:28
--- NOTE | 2017-01-13 08:34 | CONS ---
Date/Time of Note Date/Time of Note DATE: 01/13/17 TIME: 08:27 Assessment/Plan Assessment/Plan Chief Complaint/Hosp Course 1) UTI most likely continue with vanco/merrem at present await maturation of urine cx, initial one was NGTD by report only current u/a has 10-25 wbc 01/12 - urine cx was negative repeat u/a 01/13 - u/a is clear, d/c merrem 2) s/p L TKR aspiration of knee was done and results are pending no outward appearance of infection though continue with vanco till cx results and cell count are available 01/12 - cell count from knee joint fluid was 13K and 90% PMN's, cx are NGTD continue with vanco/merrem, await final report 01/13 - knee cx remain NGTD d/c merrem 3) HTN 4) BPH pt may have urinary retention he is complaining of pain with pickard and no documented urine retention noted will d/c pickard, have nurses do bladder training and will get repeat bladder scan if no urination for 6 hours 01/12 - pt states he is urinating but has some dysuria urine cx was negative 01/13 - no further urinary problems 5) GPC in blood cx, one set only (CoNS and strep species) 01/12 - await ID, continue with vanco 01/13 - CoNS and a strep species (not enterococcus) in blood continue with vanco full sensi's and ID should be ready by tomorrow 6) lung lesion/infiltrate by CXR 01/13 CT chest was ordered Problems: Consultation Date/Type/Reason Admit Date/Time January 10, 2017 at 13:41 Initial Consult Date 01/11/17 Type of Consultation: ID Referring Provider: DINO ALICEA MD 24 HR Interval Summary Free Text/Dictation no pain with urination no N, V, D peeing frequently feels ok Exam/Review of Systems Vital Signs Vitals Vital Signs Date Time Temp Pulse Resp B/P Pulse Ox O2 Delivery O2 Flow Rate FiO2 01/12/17 19:33 98.6 90 18 143/75 98 01/11/17 19:46 Room Air Intake and Output 01/12/17 01/12/17 01/13/17 15:00 23:00 07:00 Intake Total 100 ml 2190 ml 960 ml Output Total 1250 ml 1000 ml Balance 100 ml 940 ml -40 ml Exam Constitutional: alert, oriented Head: normocephalic Eyes: nl sclera ENMT: mucosa pink and moist Respiratory: clear to auscultation Cardiovascular: regular rate and rhythm Gastrointestinal: non-tender, soft Extremities: other (L knee less pinkness to lower aspect of surgical site) Results Result Diagram: 01/13/17 0445 01/13/175 Results 24 hrs Laboratory Tests Test 01/12/17 08:28 01/12/17 12:30 01/12/17 17:43 01/12/17 19:20 Bedside Glucose 131 113 108 Urine Color LT. YELLOW Urine Clarity CLEAR Urine pH 7.0 Urine Specific [place] 1.015 Urine Ketones NEGATIVE Urine Nitrite NEGATIVE Urine Bilirubin NEGATIVE Urine Urobilinogen 0.2 E.U./dL Urine Leukocyte Esterase NEGATIVE Urine Hemoglobin NEGATIVE Urine Glucose NEGATIVE Urine Total Protein NEGATIVE Test 01/13/17 04:45 01/13/17 08:22 White Blood Count 12.6 H Red Blood Count 3.66 L Hemoglobin 10.6 L Hematocrit 33.5 L Mean Corpuscular Volume 91.5 Mean Corpuscular Hemoglobin 29.0 Mean Corpuscular Hemoglobin Concent 31.6 L Red Cell Distribution Width 12.5 Platelet Count 392 Mean Platelet Volume 9.3 Neutrophils % 70.1 Lymphocytes % 15.0 Monocytes % 7.3 Eosinophils % 5.2 Basophils % 0.6 Nucleated Red Blood Cells % 0.0 Neutrophils # 8.8 H Lymphocytes # 1.9 Monocytes # 0.9 Eosinophils # 0.7 H Basophils # 0.1 Nucleated Red Blood Cells # 0.0 Sodium Level 136 Potassium Level 4.5 Chloride Level 101 Carbon Dioxide Level 25 Anion Gap 15 Blood Urea Nitrogen 22 H Creatinine 0.87 Glucose Level 116 Calcium Level 9.2 Magnesium Level 2.3 Bedside Glucose 109 Medications Medications Current Medications Meropenem (Merrem 1 Gm/100 ml (Pmx)) 100 ml @ 200 mls/hr Q8 IVPB Last administered on 01/13/17 06:13; Admin Dose 200 MLS/HR; Start 01/10/17 at 14:30 Docusate Sodium (Colace) 250 mg BID PO Last administered on 01/12/17 20:39; Admin Dose 250 MG; Start 01/10/17 at 21:00 Latanoprost (Xalatan) 1 drop QHS BOTH EYES Last administered on 01/12/17 20:38 ; Admin Dose 1 DROP; Start 01/10/17 at 21:00 Magnesium Oxide (Mag-Ox 400) 400 mg BID PO Last administered on 01/12/17 20:39 ; Admin Dose 400 MG; Start 01/10/17 at 21:00 Tamsulosin HCl (Flomax) 0.8 mg HS PO Last administered on 01/12/17 20:39; Admin Dose 0.8 MG; Start 01/10/17 at 21:00 Tramadol HCl (Ultram) 50 mg Q6 PO Last administered on 01/13/17 06:14; Admin Dose 50 MG; Start 01/10/17 at 18:00 Memantine (Namenda) 10 mg HS PO ; Start 01/10/17 at 21:00 Pantoprazole (Protonix Tab) 40 mg DAILY@06 PO Last administered on 01/13/17 06 :14; Admin Dose 40 MG; Start 01/10/17 at 22:00 Valsartan (Diovan) 160 mg DAILY PO Last administered on 01/12/17 09:36; Admin Dose 160 MG; Start 01/10/17 at 18:00 Allopurinol (Zyloprim) 100 mg DAILY PO Last administered on 01/12/17 09:36; Admin Dose 100 MG; Start 01/11/17 at 09:00 Azelastine HCl 2 spray 2 spray BID NASAL ; Start 01/10/17 at 21:00 Sodium Chloride (NS) 1,000 ml @ 40 mls/hr Q24H IV Last administered on 17:04; Admin Dose 40 MLS/HR; Start 01/10/17 at 17:00 Ondansetron HCl (Zofran Inj) 4 mg Q6H PRN IV NAUSEA AND/OR VOMITING; Start at 17:00 Acetaminophen (Tylenol Tab) 650 mg Q6H PRN PO PAIN LEVEL 1-3 OR FEVER; Start at 17:00 Acetaminophen/ Hydrocodone Bitart ([place] (7.5-325)) 1 tab Q6H PRN PO PAIN LEVEL 4-6; Start 01/10/17 at 17:00 Miscellaneous Information 1 ea NOTE XX ; Start 01/10/17 at 18:00 Glucose (Glutose) 15 gm Q15M PRN PO DECREASED GLUCOSE; Start 01/10/17 at 18:00 Glucose (Glutose) 22.5 gm Q15M PRN PO DECREASED GLUCOSE; Start 01/10/17 at 18: 00 Dextrose (D50w Syringe) 25 ml Q15M PRN IV DECREASED GLUCOSE; Start 01/10/17 at 18:00 Dextrose (D50w Syringe) 50 ml Q15M PRN IV DECREASED GLUCOSE; Start 01/10/17 at 18:00 Glucagon (Glucagen) 1 mg Q15M PRN IM DECREASED GLUCOSE; Start 01/10/17 at 18:00 Glucose 15 gm 15 gm Q15M PRN BUCCAL DECREASED GLUCOSE; Start 01/10/17 at 18:00 Vancomycin HCl/ Sodium Chloride (Vancocin/NS) 250 ml @ 83.333 mls/ hr Q24H IVPB Last administered on 01/12/17 16:54; Admin Dose 83.333 MLS/HR; Start at 16:00 Bisacodyl (Dulcolax) 5 mg DAILY PRN PO CONSTIPATION; Start 01/11/17 at 15:30 Magnesium Hydroxide (Milk Of Mag) 30 ml DAILY PRN PO CONSTIPATION Last administered on 01/12/17 09:39; Admin Dose 30 ML; Start 01/11/17 at 15:30 Trazodone HCl (Desyrel) 50 mg HS PO Last administered on 01/12/17 20:39; Admin Dose 50 MG; Start 01/11/17 at 21:00 Simethicone (Mylicon) 80 mg TID PRN PO DISTENSION/GAS/BLOATING; Start 01/11/17 at 15:30 Polyethylene Glycol (Miralax) 17 gm DAILY PO Last administered on 01/12/17 16: 54; Admin Dose 17 GM; Start 01/12/17 at 14:00 NAZ DEL RIO MD January 13, 2017 08:34
[2017-01-13 08:56] LABS: ALBUMIN 3.3 g/dl (3.3-4.9)
--- NOTE | 2017-01-13 08:58 | PN ---
Date/Time of Note Date/Time of Note DATE: 01/13/17 TIME: 08:55 Assessment/Plan Lines/Catheters IV Catheter Type (from Nrsg): Peripheral IV Jackson in Place (from Nrsg): No Assessment/Plan Assessment/Plan Status post left TKA, doing well with improving WBC and no fevers -knee does not appear to be source of infection -continue abx per Dr. Escobedo -will await sensitivity for blood culture results -OOB with PT -ASA/SCDs for DVT prophlaxis -possible discharge home in the next day or two Subjective 24 Hr Interval Summary No acute overnight events. Denies any significant knee pain. Blood culture positive but possible contamination. Will await for final results and sensitivities. Synovial analysis shows no growth after 3 days. Urine culture negative. VSS. Continues to be afebrile. Will continue antibiotics per Dr. Escobedo. Exam/Review of Systems Vital Signs Vitals Vital Signs Date Time Temp Pulse Resp B/P Pulse Ox O2 Delivery O2 Flow Rate FiO2 01/12/17 19:33 98.6 90 18 143/75 98 01/11/17 19:46 Room Air Intake and Output 01/12/17 01/12/17 01/13/17 15:00 23:00 07:00 Intake Total 100 ml 2190 ml 960 ml Output Total 1250 ml 1000 ml Balance 100 ml 940 ml -40 ml Exam Free Text/Dictation Dressing dry Incision clean, dry, and intact without redness or drainage Thigh soft 5/5 Quadriceps, Tibialis Anterior, EHL, Gastroc, Soleus, Peroneals Normal sensation Palpable DT/PT, CR <2 sec No distal edema Results Result Diagram: 01/13/17 0445 01/13/17 0445 JAYSHREE BENITEZ PA-C January 13, 2017 08:58
[2017-01-13 08:59] LABS: BILIRUBIN,INDIRECT 0.1 mg/dl (0-1.1); BILIRUBIN,TOTAL 0.1 mg/dl (0.2-1.3); TOTAL PROTEIN 6.9 g/dl (6.1-8.1)
[2017-01-13] MEDS: ALLOPURINOL 100 MG TAB PO SCH (09:00)
[2017-01-13] MEDS: AZELASTINE 30 ML NAS SPRAY NASAL SCH ×2 (09:00→21:00)
[2017-01-13] MEDS: DOCUSATE SODIUM 250 MG CAP PO SCH ×2 (09:27→21:35)
[2017-01-13] MEDS: ASPIRIN (EC) 325 MG TAB PO SCH ×2 (09:27→18:06)
[2017-01-13] MEDS: VALSARTAN 160 MG TAB PO SCH (09:28)
[2017-01-13] MEDS: MAGNESIUM OXIDE 400 MG TAB PO SCH ×2 (09:28→21:35)
[2017-01-13] MEDS: POLYETHYLENE GLYCOL 17 GM PACKET PO SCH (09:28)
[2017-01-13 09:33] VITALS: BP 132/77; PULSE 89; RESP 18
--- NOTE | 2017-01-13 11:37 | RADRPT ---
PROCEDURE: CT Chest without contrast. CLINICAL INDICATION: Right lung opacity on x-ray TECHNIQUE: CT of the chest was performed on a multi-detector scanner without IV contrast. Coronal and sagittal images were reformatted from the axial data set. One or more of the following dose re duction techniques were used: automated exposure control, adjustment of the mA and/or kV according t o patient size, use of iterative reconstruction technique. CTDI = 14.21 mGy. DLP = 564.29 mGy-cm. COMPARISON: Chest x-ray, 01/10/2017 FINDINGS: Bibasilar bronchial wall thickening is noted, compatible with bronchitis. There is mild atelectasis at the left lung base. No focal acute infiltrate, pleural effusion, pulmonary edema or pneumothora x is identified. The central tracheobronchial tree is clear. No pulmonary nodule or mass is identi fied. The heart is borderline enlarged, without pericardial effusion. Coronary arterial and aortic athero sclerotic calcifications are present. There is no thoracic aortic aneurysm. No mediastinal, hilar, axillary or supraclavicular lymphadenopathy is identified. Mild hiatal hernia is noted. The liver is fatty infiltrated. Indeterminate 1.5 cm solid nodule is identified within anterior perigastric fat (3-113). The surrounding osseous structures are remarkabl e for degenerative spondylosis of the spine. No osteolytic or osteoblastic lesion is detected. IMPRESSION: 1. Bibasilar bronchial wall thickening is noted, compatible with bronchitis. 2. Coronary arterial and aortic atherosclerotic calcification present. 3. No pulmonary nodule, mass lymphadenopathy or focal acute infiltrate is identified. 4. Mild hiatal hernia is noted. 5. Hepatic steatosis is identified. 6. Indeterminate 1.5 cm solid nodule is present within the anterior perigastric fat, possibly promi nent lymph node - CT followup is recommended to assess interval stability. RPTAT: PP .Jorge Alberto Abdi MD, Date Time Electronically viewed and signed by .Jorge Alberto Abdi MD, MD on 01/13/2017 11:37 .R/
[2017-01-13] MEDS: SOD CHLORIDE 0.9% 1,000 ML IV SCH (17:00)
[2017-01-13] MEDS: VANCOMYCIN 1.25 GM in SOD CHLORIDE 0.9% 250 ML IVPB SCH (18:06)
[2017-01-13] MEDS: MAGNESIUM HYDROXIDE 30ML CUP PO PRN (18:06)
[2017-01-13 20:31] VITALS: BP 127/58; RESP 18
[2017-01-13] MEDS: MEMANTINE 5 MG TAB PO SCH (21:00)
[2017-01-13] MEDS: traZODone 50 MG TAB PO SCH (21:35)
[2017-01-13] MEDS: LATANOPROST 0.005% 2.5 ML OPH BOTH EYES SCH (21:35)
[2017-01-13] MEDS: TAMSULOSIN (SR) 0.4 MG CAP PO SCH (21:35)
[2017-01-14 04:50] LABS: ADD SCAN DIFF NO
[2017-01-14 04:54] LABS: BASOPHIL # 0.1 10^3/ul (0.0-0.1); BASOPHILS % 0.5 % (0.0-2.0); EOSINOPHILS # 0.6 10^3/ul (0.0-0.5); EOSINOPHILS % 5.2 % (0.0-7.0); HEMOGLOBIN 10.8 g/dl (14.0-18.0); LYMPHOCYTES # 1.8 10^3/ul (0.8-2.9); LYMPHOCYTES % 16.7 % (15.0-51.0); MEAN CORPUSCULAR HEMOGLOBIN 29.7 pg (29.0-33.0); MEAN CORPUSCULAR HGB CONC 32.7 g/dl (32.0-37.0); MEAN CORPUSCULAR VOLUME 90.7 fl (82.0-101.0); MONOCYTE # 0.8 10^3/ul (0.3-0.9); NEUTROPHIL # 7.6 10^3/ul (1.6-7.5); PLATELET COUNT 393 10^3/UL (140-415); RED BLOOD COUNT 3.64 10^6/ul (4.70-6.10); RED CELL DISTRIBUTION WIDTH 12.4 % (11.5-14.5)
[2017-01-14 05:47] LABS: ALBUMIN 3.3 g/dl (3.3-4.9); BILIRUBIN,INDIRECT 0.2 mg/dl (0-1.1); BILIRUBIN,TOTAL 0.2 mg/dl (0.2-1.3); CREATININE 0.91 mg/dl (0.61-1.24); POTASSIUM 4.4 mmol/L (3.5-5.1)
[2017-01-14 05:48] LABS: ALBUMIN/GLOBULIN RATIO 0.91; CALCIUM 9.1 mg/dl (8.4-10.2); TOTAL PROTEIN 6.9 g/dl (6.1-8.1)
[2017-01-14] MEDS: PANTOPRAZOLE (EC) 40 MG TAB PO SCH (06:20)
[2017-01-14] MEDS: LEVOTHYROXINE 100 MCG TAB PO SCH (06:20)
[2017-01-14] MEDS: traMADol 50 MG TAB PO SCH ×5 (06:20→23:42)
[2017-01-14] MEDS: SOD CHLORIDE 0.9% 1,000 ML IV SCH (06:20)
--- NOTE | 2017-01-14 06:45 | CONS ---
Date/Time of Note Date/Time of Note DATE: 01/14/17 TIME: 06:39 Assessment/Plan Assessment/Plan Chief Complaint/Hosp Course 1) UTI most likely continue with vanco/merrem at present await maturation of urine cx, initial one was NGTD by report only current u/a has 10-25 wbc 01/12 - urine cx was negative repeat u/a 01/13 - u/a is clear, d/c merrem 2) s/p L TKR aspiration of knee was done and results are pending no outward appearance of infection though continue with vanco till cx results and cell count are available 01/12 - cell count from knee joint fluid was 13K and 90% PMN's, cx are NGTD continue with vanco/merrem, await final report 01/13 - knee cx remain NGTD d/c merrem 01/14 - knee cx is NGTD d/c vanco 3) HTN 4) BPH pt may have urinary retention he is complaining of pain with pickard and no documented urine retention noted will d/c pickard, have nurses do bladder training and will get repeat bladder scan if no urination for 6 hours 01/12 - pt states he is urinating but has some dysuria urine cx was negative 01/13 - no further urinary problems 5) GPC in blood cx, one set only (CoNS and strep species) 01/12 - await ID, continue with vanco 01/13 - CoNS and a strep species (not enterococcus) in blood continue with vanco full sensi's and ID should be ready by tomorrow 01/14 - s.viridans in blood cx, this is most likely another contaminant, especially since CoNS was in the same bottle d/c vanco and observe off antibiotics 6) lung lesion/infiltrate by CXR 01/13 CT chest was ordered 01/14 - No lung lesion in RLL non specific nodule seen but not indicated which side in report CT report also suggests bronchitis but pt has no current symptoms Problems: Consultation Date/Type/Reason Admit Date/Time January 10, 2017 at 13:41 Initial Consult Date 01/11/17 Type of Consultation: ID Referring Provider: DINO ALICEA MD 24 HR Interval Summary Free Text/Dictation no cough, abd pain knee feels ok no V pt had a normal BM yesterday Exam/Review of Systems Vital Signs Vitals Vital Signs Date Time Temp Pulse Resp B/P Pulse Ox O2 Delivery O2 Flow Rate FiO2 01/13/17 20:31 98.7 87 18 127/58 93 01/13/17 09:33 Room Air Intake and Output 01/13/17 01/13/17 01/14/17 15:00 23:00 07:00 Intake Total 1350 ml 760 ml Output Total 1200 ml 900 ml Balance 150 ml -140 ml Exam Constitutional: alert, oriented Head: normocephalic Eyes: nl sclera Respiratory: clear to auscultation Cardiovascular: regular rate and rhythm Gastrointestinal: soft Extremities: other (L knee shows swelling without redness, slight increase in heat) Results Result Diagram: 01/14/17 0425 01/14/17 0425 Results 24 hrs Laboratory Tests Test 01/13/17 08:22 01/13/17 11:57 01/13/17 17:48 01/14/17 04:25 Bedside Glucose 109 111 113 White Blood Count 11.0 H Red Blood Count 3.64 L Hemoglobin 10.8 L Hematocrit 33.0 L Mean Corpuscular Volume 90.7 Mean Corpuscular Hemoglobin 29.7 Mean Corpuscular Hemoglobin Concent 32.7 Red Cell Distribution Width 12.4 Platelet Count 393 Mean Platelet Volume 9.0 Neutrophils % 69.0 Lymphocytes % 16.7 Monocytes % 7.0 Eosinophils % 5.2 Basophils % 0.5 Nucleated Red Blood Cells % 0.0 Neutrophils # 7.6 H Lymphocytes # 1.8 Monocytes # 0.8 Eosinophils # 0.6 H Basophils # 0.1 Nucleated Red Blood Cells # 0.0 Sodium Level 138 Potassium Level 4.4 Chloride Level 100 Carbon Dioxide Level 26 Anion Gap 16 Blood Urea Nitrogen 20 Creatinine 0.91 Glucose Level 119 Calcium Level 9.1 Total Bilirubin 0.2 Direct Bilirubin 0.00 Indirect Bilirubin 0.2 Aspartate Amino Transf (AST/SGOT) 39 Alanine Aminotransferase (ALT/SGPT) 70 H Alkaline Phosphatase 93 Total Protein 6.9 Albumin 3.3 Globulin 3.60 H Albumin/Globulin Ratio 0.91 Medications Medications Current Medications Docusate Sodium (Colace) 250 mg BID PO Last administered on 01/13/17t 21:35; Admin Dose 250 MG; Start 01/10/17 at 21:00 Latanoprost (Xalatan) 1 drop QHS BOTH EYES Last administered on 01/13/17 21:35 ; Admin Dose 1 DROP; Start 01/10/17 at 21:00 Magnesium Oxide (Mag-Ox 400) 400 mg BID PO Last administered on 01/13/17 21:35 ; Admin Dose 400 MG; Start 01/10/17 at 21:00 Tamsulosin HCl (Flomax) 0.8 mg HS PO Last administered on 01/13/17 21:35; Admin Dose 0.8 MG; Start 01/10/17 at 21:00 Tramadol HCl (Ultram) 50 mg Q6 PO Last administered on 01/14/17 06:20; Admin Dose 50 MG; Start 01/10/17 at 18:00 Memantine (Namenda) 10 mg HS PO ; Start 01/10/17 at 21:00 Pantoprazole (Protonix Tab) 40 mg DAILY@06 PO Last administered on 01/14/17 06 :20; Admin Dose 40 MG; Start 01/10/17 at 22:00 Valsartan (Diovan) 160 mg DAILY PO Last administered on 01/13/17 09:28; Admin Dose 160 MG; Start 01/10/17 at 18:00 Allopurinol (Zyloprim) 100 mg DAILY PO Last administered on 01/12/17 09:36; Admin Dose 100 MG; Start 01/11/17 at 09:00 Azelastine HCl 2 spray 2 spray BID NASAL ; Start 01/10/17 at 21:00 Sodium Chloride (NS) 1,000 ml @ 40 mls/hr Q24H IV Last administered on 06:20; Admin Dose 40 MLS/HR; Start 01/10/17 at 17:00 Ondansetron HCl (Zofran Inj) 4 mg Q6H PRN IV NAUSEA AND/OR VOMITING; Start at 17:00 Acetaminophen (Tylenol Tab) 650 mg Q6H PRN PO PAIN LEVEL 1-3 OR FEVER; Start at 17:00 Acetaminophen/ Hydrocodone Bitart ([place] (7.5-325)) 1 tab Q6H PRN PO PAIN LEVEL 4-6; Start 01/10/17 at 17:00 Miscellaneous Information 1 ea NOTE XX ; Start 01/10/17 at 18:00 Glucose (Glutose) 15 gm Q15M PRN PO DECREASED GLUCOSE; Start 01/10/17 at 18:00 Glucose (Glutose) 22.5 gm Q15M PRN PO DECREASED GLUCOSE; Start 01/10/17 at 18: 00 Dextrose (D50w Syringe) 25 ml Q15M PRN IV DECREASED GLUCOSE; Start 01/10/17 at 18:00 Dextrose (D50w Syringe) 50 ml Q15M PRN IV DECREASED GLUCOSE; Start 01/10/17 at 18:00 Glucagon (Glucagen) 1 mg Q15M PRN IM DECREASED GLUCOSE; Start 01/10/17 at 18:00 Glucose 15 gm 15 gm Q15M PRN BUCCAL DECREASED GLUCOSE; Start 01/10/17 at 18:00 Vancomycin HCl/ Sodium Chloride (Vancocin/NS) 250 ml @ 83.333 mls/ hr Q24H IVPB Last administered on 01/13/17 18:06; Admin Dose 83.333 MLS/HR; Start at 16:00 Bisacodyl (Dulcolax) 5 mg DAILY PRN PO CONSTIPATION Last administered on 09:28; Admin Dose 5 MG; Start 01/11/17 at 15:30 Magnesium Hydroxide (Milk Of Mag) 30 ml DAILY PRN PO CONSTIPATION Last administered on 01/13/17 18:06; Admin Dose 30 ML; Start 01/11/17 at 15:30 Trazodone HCl (Desyrel) 50 mg HS PO Last administered on 01/13/17 21:35; Admin Dose 50 MG; Start 01/11/17 at 21:00 Simethicone (Mylicon) 80 mg TID PRN PO DISTENSION/GAS/BLOATING; Start 01/11/17 at 15:30 Polyethylene Glycol (Miralax) 17 gm DAILY PO Last administered on 01/13/17 09: 28; Admin Dose 17 GM; Start 01/12/17 at 14:00 Miscellaneous Information (*Rx Drug Level Order Reminder*) VANCOMYCIN TROUGH AT 1500 ONCE ONCE XX ; Start 01/14/17 at 15:00; Stop 01/14/17 at 15:01 NAZ DEL RIO MD January 14, 2017 06:45
[2017-01-14] MEDS: INSULIN ASPART [NOVOLOG] 3 ML PEN SC SCH ×3 (07:20→17:25)
[2017-01-14 08:15] VITALS: BP 121/63; RESP 18
--- NOTE | 2017-01-14 08:41 | CONS ---
Date/Time of Note Date/Time of Note DATE: 01/14/17 TIME: 08:37 Assessment/Plan Assessment/Plan Additional Assessment/Plan 1. Temp and elev wbc has resolved, ID eval noted, likely uti but unclear why cult was neg. 2. Post op knee replacement, doing well 3. Rev CT with radiology, nodule notes in mesentery is most likely benign, follow up 3-4 mos is rec. 4. Will observe thru tomm and if remains afebrile and wbc continues to improve can dc 5. Unclear why lfts are abnl, will not resume statin and will need op follow up. Consultation Date/Type/Reason Admit Date/Time January 10, 2017 at 13:41 Initial Consult Date 01/11/17 Type of Consultation: ID Referring Provider: DINO ALICEA MD Detailed Summary Respiratory: No cough, No shortness of breath Cardiovascular: No chest pain, No orthopenea Gastrointestinal: no complaints Genitourinary: no complaints Musculoskeletal: bone/joint pain (mild knee pain) Exam/Review of Systems Vital Signs Vitals Vital Signs Date Time Temp Pulse Resp B/P Pulse Ox O2 Delivery O2 Flow Rate FiO2 01/14/17 08:15 98.3 75 18 121/63 92 01/13/17 09:33 Room Air Intake and Output 01/13/17 01/13/17 01/14/17 15:00 23:00 07:00 Intake Total 1350 ml 760 ml Output Total 1200 ml 900 ml Balance 150 ml -140 ml Exam Neck: No jvd Respiratory: clear to auscultation Cardiovascular: regular rate and rhythm Gastrointestinal: soft Extremities: No edema (and no calf tend) Results Result Diagram: 01/14/17 0425 01/14/17 0425 Results 24 hrs Laboratory Tests Test 01/13/17 11:57 01/13/17 17:48 01/14/17 04:25 Bedside Glucose 111 113 White Blood Count 11.0 H Red Blood Count 3.64 L Hemoglobin 10.8 L Hematocrit 33.0 L Mean Corpuscular Volume 90.7 Mean Corpuscular Hemoglobin 29.7 Mean Corpuscular Hemoglobin Concent 32.7 Red Cell Distribution Width 12.4 Platelet Count 393 Mean Platelet Volume 9.0 Neutrophils % 69.0 Lymphocytes % 16.7 Monocytes % 7.0 Eosinophils % 5.2 Basophils % 0.5 Nucleated Red Blood Cells % 0.0 Neutrophils # 7.6 H Lymphocytes # 1.8 Monocytes # 0.8 Eosinophils # 0.6 H Basophils # 0.1 Nucleated Red Blood Cells # 0.0 Sodium Level 138 Potassium Level 4.4 Chloride Level 100 Carbon Dioxide Level 26 Anion Gap 16 Blood Urea Nitrogen 20 Creatinine 0.91 Glucose Level 119 Calcium Level 9.1 Total Bilirubin 0.2 Direct Bilirubin 0.00 Indirect Bilirubin 0.2 Aspartate Amino Transf (AST/SGOT) 39 Alanine Aminotransferase (ALT/SGPT) 70 H Alkaline Phosphatase 93 Total Protein 6.9 Albumin 3.3 Globulin 3.60 H Albumin/Globulin Ratio 0.91 Medications Medications Current Medications Docusate Sodium (Colace) 250 mg BID PO Last administered on 01/13/17 21:35; Admin Dose 250 MG; Start 01/10/17 at 21:00 Latanoprost (Xalatan) 1 drop QHS BOTH EYES Last administered on 01/13/17 21:35 ; Admin Dose 1 DROP; Start 01/10/17 at 21:00 Magnesium Oxide (Mag-Ox 400) 400 mg BID PO Last administered on 01/13/17 21:35 ; Admin Dose 400 MG; Start 01/10/17 at 21:00 Tamsulosin HCl (Flomax) 0.8 mg HS PO Last administered on 01/13/17 21:35; Admin Dose 0.8 MG; Start 01/10/17 at 21:00 Tramadol HCl (Ultram) 50 mg Q6 PO Last administered on 01/14/17 06:20; Admin Dose 50 MG; Start 01/10/17 at 18:00 Memantine (Namenda) 10 mg HS PO ; Start 01/10/17 at 21:00 Pantoprazole (Protonix Tab) 40 mg DAILY@06 PO Last administered on 01/14/17 06 :20; Admin Dose 40 MG; Start 01/10/17 at 22:00 Valsartan (Diovan) 160 mg DAILY PO Last administered on 01/13/17 09:28; Admin Dose 160 MG; Start 01/10/17 at 18:00 Allopurinol (Zyloprim) 100 mg DAILY PO Last administered on 01/12/17 09:36; Admin Dose 100 MG; Start 01/11/17 at 09:00 Azelastine HCl 2 spray 2 spray BID NASAL ; Start 01/10/17 at 21:00 Sodium Chloride (NS) 1,000 ml @ 40 mls/hr Q24H IV Last administered on 06:20; Admin Dose 40 MLS/HR; Start 01/10/17 at 17:00 Ondansetron HCl (Zofran Inj) 4 mg Q6H PRN IV NAUSEA AND/OR VOMITING; Start at 17:00 Acetaminophen (Tylenol Tab) 650 mg Q6H PRN PO PAIN LEVEL 1-3 OR FEVER; Start at 17:00 Acetaminophen/ Hydrocodone Bitart ([place] (7.5-325)) 1 tab Q6H PRN PO PAIN LEVEL 4-6; Start 01/10/17 at 17:00 Miscellaneous Information 1 ea NOTE XX ; Start 01/10/17 at 18:00 Glucose (Glutose) 15 gm Q15M PRN PO DECREASED GLUCOSE; Start 01/10/17 at 18:00 Glucose (Glutose) 22.5 gm Q15M PRN PO DECREASED GLUCOSE; Start 01/10/17 at 18: 00 Dextrose (D50w Syringe) 25 ml Q15M PRN IV DECREASED GLUCOSE; Start 01/10/17 at 18:00 Dextrose (D50w Syringe) 50 ml Q15M PRN IV DECREASED GLUCOSE; Start 01/10/17 at 18:00 Glucagon (Glucagen) 1 mg Q15M PRN IM DECREASED GLUCOSE; Start 01/10/17 at 18:00 Glucose (Glutose) 15 gm Q15M PRN BUCCAL DECREASED GLUCOSE; Start 01/10/17 at 18 :00 Bisacodyl (Dulcolax) 5 mg DAILY PRN PO CONSTIPATION Last administered on 09:28; Admin Dose 5 MG; Start 01/11/17 at 15:30 Magnesium Hydroxide (Milk Of Mag) 30 ml DAILY PRN PO CONSTIPATION Last administered on 01/13/17 18:06; Admin Dose 30 ML; Start 01/11/17 at 15:30 Trazodone HCl (Desyrel) 50 mg HS PO Last administered on 01/13/17 21:35; Admin Dose 50 MG; Start 01/11/17 at 21:00 Simethicone (Mylicon) 80 mg TID PRN PO DISTENSION/GAS/BLOATING; Start 01/11/17 at 15:30 Polyethylene Glycol (Miralax) 17 gm DAILY PO Last administered on 01/13/17t 09: 28; Admin Dose 17 GM; Start 01/12/17 at 14:00 KALEY DA SILVA MD January 14, 2017 08:41
[2017-01-14] MEDS: VALSARTAN 160 MG TAB PO SCH (08:59)
[2017-01-14] MEDS: MAGNESIUM OXIDE 400 MG TAB PO SCH ×2 (09:00→21:48)
[2017-01-14] MEDS: DOCUSATE SODIUM 250 MG CAP PO SCH ×2 (09:00→21:48)
[2017-01-14] MEDS: ALLOPURINOL 100 MG TAB PO SCH (09:00)
[2017-01-14] MEDS: ASPIRIN (EC) 325 MG TAB PO SCH ×2 (09:00→18:05)
[2017-01-14] MEDS: AZELASTINE 30 ML NAS SPRAY NASAL SCH ×2 (09:01→21:00)
[2017-01-14] MEDS: POLYETHYLENE GLYCOL 17 GM PACKET PO SCH (09:01)
[2017-01-14] MEDS: MAGNESIUM HYDROXIDE 30ML CUP PO PRN (09:06)
--- NOTE | 2017-01-14 10:31 | PN ---
Date/Time of Note Date/Time of Note DATE: 01/14/17 TIME: 10:29 Assessment/Plan Lines/Catheters IV Catheter Type (from Nrsg): Peripheral IV Jackson in Place (from Nrsg): No Assessment/Plan Assessment/Plan Stable s/p left TKA -continue Clindamycine 300mg PO QID -pain meds as needed -ASA/SCDs -OOB with PT -arrange [facility] -likely will go home tomorrow Subjective 24 Hr Interval Summary Doing better overall. Blood culture grew Strep Viradens but likely contaminant. WBC improving and has been afebrile. Will continue Cleocin 300mg QID PO. Likely will be discharged home tomorrow. Exam/Review of Systems Vital Signs Vitals Vital Signs Date Time Temp Pulse Resp B/P Pulse Ox O2 Delivery O2 Flow Rate FiO2 01/14/17 08:15 98.3 75 18 121/63 92 01/13/17 09:33 Room Air Intake and Output 01/13/17 01/13/17 01/14/17 15:00 23:00 07:00 Intake Total 1350 ml 760 ml Output Total 1200 ml 900 ml Balance 150 ml -140 ml Exam Free Text/Dictation Dressing dry Incision clean, dry, and intact without redness or drainage Thigh soft 5/5 Quadriceps, Tibialis Anterior, EHL, Gastroc, Soleus, Peroneals Normal sensation Palpable DT/PT, CR <2 sec No distal edema Results Result Diagram: 01/14/17 0425 01/14/17 0425 JAYSHREE BENITEZ PA-C January 14, 2017 10:31
[2017-01-14] MEDS ORDERED: BARIUM SULF 2% 450 ML BTL (BERRY SMOOTHIE) PO ONE (13:00)
[2017-01-14] MEDS: CLINDAMYCIN 300 MG CAP PO SCH ×3 (13:12→23:42)
--- NOTE | 2017-01-14 15:13 | RADRPT ---
PROCEDURE: CT Abdomen and Pelvis without contrast. CLINICAL INDICATION: Bacteremia, postoperative fever TECHNIQUE: CT of the abdomen and pelvis was performed on a multi-detector scanner without IV contr ast. Coronal and sagittal images were reformatted from the axial data set. One or more of the foll owing dose reduction techniques were used: automated exposure control, adjustment of the mA and/or kV according to patient size, use of iterative reconstruction technique. CTDI = 17.07 mGy. DLP = 11 55.41 mGy-cm. COMPARISON: None. FINDINGS: CT abdomen: The lung bases are clear. The heart size is normal, without pericardial effusion. Coronary arteria l calcifications are noted. The liver is fatty infiltrated, without evidence of focal mass. Gallbl adder, biliary tree, pancreas, spleen, adrenal glands and kidneys are unremarkable. No urolithiasis or obstructive uropathy is identified. Small hiatal hernia is noted. The stomach is otherwise maria dolores ssly unremarkable. The aorta is of normal caliber. Aortic vascular calcifications are present. There is no retroperit workman lymphadenopathy. The katty hepatis region is clear. Indeterminate 1.4-cm anterior perigastri c nodule is again seen. Fat-containing umbilical hernia is noted, without incarceration. CT pelvis: No bowel obstruction, free intraperitoneal air or abscess is identified. Sigmoid diverticulosis is seen without diverticulitis. The appendix is well visualized and normal. There is no colitis. Uri nary bladder is grossly unremarkable. Prostate is mildly enlarged. No pelvic mass, free fluid or l ymphadenopathy is identified. The surrounding osseous structures are remarkable for degenerative spondylosis of the spine. No ost eolytic or osteoblastic lesion is detected. IMPRESSION: 1. Indeterminate anterior perigastric nodule is again seen, possibly prominent lymph node. No othe r evidence of mass or lymphadenopathy is identified. Attention on follow-up is recommended. 2. Prostate is mildly enlarged - correlate with PSA level. 3. Hepatic steatosis is noted. 4. Small hiatal hernia is identified. 5. Fat-containing umbilical hernia is seen without incarceration. 6. Sigmoid diverticulosis is seen without diverticulitis. 7. Coronary arterial and aortoiliac atherosclerotic calcifications are present. RPTAT: EE .Jorge Alberto Rusnack, MD, MD Date Time Electronically viewed and signed by .Jorge Alberto Abdi MD, MD on 01/14/2017 15:12 .R/
[2017-01-14 20:34] VITALS: BP 129/69; RESP 20
[2017-01-14] MEDS: MEMANTINE 5 MG TAB PO SCH (21:00)
[2017-01-14] MEDS: traZODone 50 MG TAB PO SCH (21:48)
[2017-01-14] MEDS: LATANOPROST 0.005% 2.5 ML OPH BOTH EYES SCH (21:48)
[2017-01-14] MEDS: TAMSULOSIN (SR) 0.4 MG CAP PO SCH (21:48)
[2017-01-15 05:06] LABS: ADD SCAN DIFF NO
[2017-01-15 05:07] LABS: BASOPHIL # 0.1 10^3/ul (0.0-0.1); BASOPHILS % 0.7 % (0.0-2.0); EOSINOPHILS # 0.7 10^3/ul (0.0-0.5); EOSINOPHILS % 6.1 % (0.0-7.0); HEMATOCRIT 31.5 % (42.0-52.0); HEMOGLOBIN 10.3 g/dl (14.0-18.0); LYMPHOCYTES # 1.9 10^3/ul (0.8-2.9); MEAN CORPUSCULAR HEMOGLOBIN 29.7 pg (29.0-33.0); MEAN CORPUSCULAR HGB CONC 32.7 g/dl (32.0-37.0); MEAN CORPUSCULAR VOLUME 90.8 fl (82.0-101.0); MEAN PLATELET VOLUME 9.1 fl (7.4-10.4); MONOCYTE # 0.9 10^3/ul (0.3-0.9); MONOCYTES % 7.8 % (0.0-11.0); NEUTROPHIL # 7.4 10^3/ul (1.6-7.5); NEUTROPHILS % 67.4 % (39.0-77.0); PLATELET COUNT 402 10^3/UL (140-415); RED BLOOD COUNT 3.47 10^6/ul (4.70-6.10); RED CELL DISTRIBUTION WIDTH 12.5 % (11.5-14.5); WHITE BLOOD COUNT 10.9 10^3/ul (4.8-10.8)
[2017-01-15 05:28] LABS: ALBUMIN 3.2 g/dl (3.3-4.9)
[2017-01-15 05:29] LABS: POTASSIUM 4.3 mmol/L (3.5-5.1)
[2017-01-15 05:31] LABS: ALBUMIN/GLOBULIN RATIO 0.91; BILIRUBIN,INDIRECT 0.1 mg/dl (0-1.1); BILIRUBIN,TOTAL 0.1 mg/dl (0.2-1.3); CREATININE 0.89 mg/dl (0.61-1.24); TOTAL PROTEIN 6.7 g/dl (6.1-8.1)
[2017-01-15 05:32] LABS: CALCIUM 8.9 mg/dl (8.4-10.2)
[2017-01-15] MEDS: CLINDAMYCIN 300 MG CAP PO SCH ×2 (06:07→11:41)
[2017-01-15] MEDS: PANTOPRAZOLE (EC) 40 MG TAB PO SCH (06:07)
[2017-01-15] MEDS: traMADol 50 MG TAB PO SCH ×2 (06:08→11:41)
[2017-01-15] MEDS: LEVOTHYROXINE 100 MCG TAB PO SCH (06:09)
[2017-01-15] MEDS: INSULIN ASPART [NOVOLOG] 3 ML PEN SC SCH ×2 (07:20→11:10)
[2017-01-15 07:32] VITALS: BP 144/62; RESP 19
[2017-01-15 07:35] VITALS: BP 117/65; RESP 19
--- NOTE | 2017-01-15 07:52 | CONS ---
Date/Time of Note Date/Time of Note DATE: 01/15/17 TIME: 07:43 Assessment/Plan Assessment/Plan Chief Complaint/Hosp Course 1) UTI most likely continue with vanco/merrem at present await maturation of urine cx, initial one was NGTD by report only current u/a has 10-25 wbc 01/12 - urine cx was negative repeat u/a 01/13 - u/a is clear, d/c merrem 2) s/p L TKR aspiration of knee was done and results are pending no outward appearance of infection though continue with vanco till cx results and cell count are available 01/12 - cell count from knee joint fluid was 13K and 90% PMN's, cx are NGTD continue with vanco/merrem, await final report 01/13 - knee cx remain NGTD d/c merrem 01/14 - knee cx is NGTD d/c vanco 3) HTN 4) BPH pt may have urinary retention he is complaining of pain with pickard and no documented urine retention noted will d/c pickard, have nurses do bladder training and will get repeat bladder scan if no urination for 6 hours 01/12 - pt states he is urinating but has some dysuria urine cx was negative 01/13 - no further urinary problems 5) GPC in blood cx, one set only (CoNS and strep species) 01/12 - await ID, continue with vanco 01/13 - CoNS and a strep species (not enterococcus) in blood continue with vanco full sensi's and ID should be ready by tomorrow 01/14 - s.viridans in blood cx, this is most likely another contaminant, especially since CoNS was in the same bottle d/c vanco and observe off antibiotics 01/15 - the final ID of the organism is strep anginosus (not group D, but it is a variant of s.viridans) strep anginosus is a true infection, clinda will treat but it can cause endocarditis, intra-abd abscess and head and neck infections CT abd did not reveal an abscess, no sign of head and neck infection no minor criteria seen for SBE, will order 2d echo 6) lung lesion/infiltrate by CXR 01/13 CT chest was ordered 01/14 - No lung lesion in RLL non specific nodule seen but not indicated which side in report CT report also suggests bronchitis but pt has no current symptoms Problems: Consultation Date/Type/Reason Admit Date/Time January 10, 2017 at 13:41 Initial Consult Date 01/11/17 Type of Consultation: ID Referring Provider: DINO ALICEA MD 24 HR Interval Summary Free Text/Dictation pt feels ok no N, V, D no recent dental work Exam/Review of Systems Vital Signs Vitals Vital Signs Date Time Temp Pulse Resp B/P Pulse Ox O2 Delivery O2 Flow Rate FiO2 01/15/17 07:35 98.0 58 19 117/65 98 01/13/17 09:33 Room Air Intake and Output 01/14/17 01/14/17 01/15/17 15:00 23:00 07:00 Intake Total 200 ml 960 ml 420 ml Output Total 700 ml 450 ml Balance 200 ml 260 ml -30 ml Exam Constitutional: alert, oriented Head: normocephalic Eyes: nl sclera ENMT: mucosa pink and moist Respiratory: clear to auscultation Cardiovascular: regular rate and rhythm Gastrointestinal: non-tender, soft Extremities: other (L knee, no redness just swelling and slight increase in warmth) Skin: other (no janeway lesions or splinter hemorrhages to hands/fingers) Results Result Diagram: 01/15/17 0435 01/15/17 0435 Results 24 hrs Laboratory Tests Test 01/14/17 08:58 01/14/17 12:46 01/14/17 14:45 01/14/17 17:56 Bedside Glucose 102 121 151 Vancomycin Level Trough 7.6 L Test 01/15/17 04:35 White Blood Count 10.9 H Red Blood Count 3.47 L Hemoglobin 10.3 L Hematocrit 31.5 L Mean Corpuscular Volume 90.8 Mean Corpuscular Hemoglobin 29.7 Mean Corpuscular Hemoglobin Concent 32.7 Red Cell Distribution Width 12.5 Platelet Count 402 Mean Platelet Volume 9.1 Neutrophils % 67.4 Lymphocytes % 17.0 Monocytes % 7.8 Eosinophils % 6.1 Basophils % 0.7 Nucleated Red Blood Cells % 0.0 Neutrophils # 7.4 Lymphocytes # 1.9 Monocytes # 0.9 Eosinophils # 0.7 H Basophils # 0.1 Nucleated Red Blood Cells # 0.0 Sodium Level 136 Potassium Level 4.3 Chloride Level 100 Carbon Dioxide Level 27 Anion Gap 13 Blood Urea Nitrogen 17 Creatinine 0.89 Glucose Level 121 Calcium Level 8.9 Total Bilirubin 0.1 L Direct Bilirubin 0.00 Indirect Bilirubin 0.1 Aspartate Amino Transf (AST/SGOT) 37 Alanine Aminotransferase (ALT/SGPT) 70 H Alkaline Phosphatase 92 Total Protein 6.7 Albumin 3.2 L Globulin 3.50 H Albumin/Globulin Ratio 0.91 Medications Medications Current Medications Docusate Sodium (Colace) 250 mg BID PO Last administered on 01/14/17 21:48; Admin Dose 250 MG; Start 01/10/17 at 21:00 Latanoprost (Xalatan) 1 drop QHS BOTH EYES Last administered on 01/14/17 21:48 ; Admin Dose 1 DROP; Start 01/10/17 at 21:00 Magnesium Oxide (Mag-Ox 400) 400 mg BID PO Last administered on 01/14/17 21:48 ; Admin Dose 400 MG; Start 01/10/17 at 21:00 Tamsulosin HCl (Flomax) 0.8 mg HS PO Last administered on 01/14/17 21:48; Admin Dose 0.8 MG; Start 01/10/17 at 21:00 Tramadol HCl (Ultram) 50 mg Q6 PO Last administered on 01/15/17 06:08; Admin Dose 50 MG; Start 01/10/17 at 18:00 Memantine (Namenda) 10 mg HS PO ; Start 01/10/17 at 21:00 Pantoprazole (Protonix Tab) 40 mg DAILY@06 PO Last administered on 01/15/17 06 :07; Admin Dose 40 MG; Start 01/10/17 at 22:00 Valsartan (Diovan) 160 mg DAILY PO Last administered on 01/13/17 09:28; Admin Dose 160 MG; Start 01/10/17 at 18:00 Allopurinol (Zyloprim) 100 mg DAILY PO Last administered on 01/14/17 09:00; Admin Dose 100 MG; Start 01/11/17 at 09:00 Azelastine HCl 2 spray 2 spray BID NASAL Last administered on 01/14/17 09:01; Admin Dose 2 SPRAY; Start 01/10/17 at 21:00 Sodium Chloride (NS) 1,000 ml @ 40 mls/hr Q24H IV Last administered on 06:20; Admin Dose 40 MLS/HR; Start 01/10/17 at 17:00 Ondansetron HCl (Zofran Inj) 4 mg Q6H PRN IV NAUSEA AND/OR VOMITING; Start at 17:00 Acetaminophen (Tylenol Tab) 650 mg Q6H PRN PO PAIN LEVEL 1-3 OR FEVER; Start at 17:00 Acetaminophen/ Hydrocodone Bitart ([place] (7.5-325)) 1 tab Q6H PRN PO PAIN LEVEL 4-6; Start 01/10/17 at 17:00 Miscellaneous Information 1 ea NOTE XX ; Start 01/10/17 at 18:00 Glucose (Glutose) 15 gm Q15M PRN PO DECREASED GLUCOSE; Start 01/10/17 at 18:00 Glucose (Glutose) 22.5 gm Q15M PRN PO DECREASED GLUCOSE; Start 01/10/17 at 18: 00 Dextrose (D50w Syringe) 25 ml Q15M PRN IV DECREASED GLUCOSE; Start 01/10/17 at 18:00 Dextrose (D50w Syringe) 50 ml Q15M PRN IV DECREASED GLUCOSE; Start 01/10/17 at 18:00 Glucagon (Glucagen) 1 mg Q15M PRN IM DECREASED GLUCOSE; Start 01/10/17 at 18:00 Glucose (Glutose) 15 gm Q15M PRN BUCCAL DECREASED GLUCOSE; Start 01/10/17 at 18 :00 Bisacodyl (Dulcolax) 5 mg DAILY PRN PO CONSTIPATION Last administered on 09:28; Admin Dose 5 MG; Start 01/11/17 at 15:30 Magnesium Hydroxide (Milk Of Mag) 30 ml DAILY PRN PO CONSTIPATION Last administered on 01/14/17 09:06; Admin Dose 30 ML; Start 01/11/17 at 15:30 Trazodone HCl (Desyrel) 50 mg HS PO Last administered on 01/14/17 21:48; Admin Dose 50 MG; Start 01/11/17 at 21:00 Simethicone (Mylicon) 80 mg TID PRN PO DISTENSION/GAS/BLOATING; Start 01/11/17 at 15:30 Polyethylene Glycol (Miralax) 17 gm DAILY PO Last administered on 01/14/17 09: 01; Admin Dose 17 GM; Start 01/12/17 at 14:00 Clindamycin HCl (Cleocin) 300 mg Q6 PO Last administered on 01/15/17 06:07; Admin Dose 300 MG; Start 01/14/17 at 12:00 NAZ DEL RIO MD January 15, 2017 07:52
--- NOTE | 2017-01-15 08:34 | PN ---
Date/Time of Note Date/Time of Note DATE: 01/15/17 TIME: 08:30 Assessment/Plan VTE Prophylaxis VTE Prophylaxis Intervention: other Lines/Catheters IV Catheter Type (from Nrs): Saline Lock Urinary Cath still in place: No Assessment/Plan Assessment/Plan 1. Bacteremia, source unclear, rev with id, to dc if echocardiogram is nl 2. Post op left knee doing well 3. Abnl liver tests, stable Subjective 24 Hr Interval Summary Respiratory: No cough, No shortness of breath Cardiovascular: No chest pain Gastrointestinal: no complaints Genitourinary: no complaints Musculoskeletal: bone/joint pain (mild left knee pain) Exam/Review of Systems Vital Signs Vitals Vital Signs Date Time Temp Pulse Resp B/P Pulse Ox O2 Delivery O2 Flow Rate FiO2 01/15/17 07:35 98.0 58 19 117/65 98 01/13/17 09:33 Room Air Intake and Output 01/14/17 01/14/17 01/15/17 15:00 23:00 07:00 Intake Total 200 ml 960 ml 420 ml Output Total 700 ml 450 ml Balance 200 ml 260 ml -30 ml Exam Neck: No jvd Respiratory: clear to auscultation Cardiovascular: regular rate and rhythm Gastrointestinal: soft Extremities: No edema (and no calf tend) Results Result Diagram: 01/15/17 0435 01/15/17 0435 Results 24 hrs Laboratory Tests Test 01/14/17 08:58 01/14/17 12:46 01/14/17 14:45 01/14/17 17:56 Bedside Glucose 102 121 151 Vancomycin Level Trough 7.6 L Test 01/15/17 04:35 White Blood Count 10.9 H Red Blood Count 3.47 L Hemoglobin 10.3 L Hematocrit 31.5 L Mean Corpuscular Volume 90.8 Mean Corpuscular Hemoglobin 29.7 Mean Corpuscular Hemoglobin Concent 32.7 Red Cell Distribution Width 12.5 Platelet Count 402 Mean Platelet Volume 9.1 Neutrophils % 67.4 Lymphocytes % 17.0 Monocytes % 7.8 Eosinophils % 6.1 Basophils % 0.7 Nucleated Red Blood Cells % 0.0 Neutrophils # 7.4 Lymphocytes # 1.9 Monocytes # 0.9 Eosinophils # 0.7 H Basophils # 0.1 Nucleated Red Blood Cells # 0.0 Sodium Level 136 Potassium Level 4.3 Chloride Level 100 Carbon Dioxide Level 27 Anion Gap 13 Blood Urea Nitrogen 17 Creatinine 0.89 Glucose Level 121 Calcium Level 8.9 Total Bilirubin 0.1 L Direct Bilirubin 0.00 Indirect Bilirubin 0.1 Aspartate Amino Transf (AST/SGOT) 37 Alanine Aminotransferase (ALT/SGPT) 70 H Alkaline Phosphatase 92 Total Protein 6.7 Albumin 3.2 L Globulin 3.50 H Albumin/Globulin Ratio 0.91 Medications Medications Current Medications Docusate Sodium (Colace) 250 mg BID PO Last administered on 01/14/17 21:48; Admin Dose 250 MG; Start 01/10/17 at 21:00 Latanoprost (Xalatan) 1 drop QHS BOTH EYES Last administered on 01/14/17 21:48 ; Admin Dose 1 DROP; Start 01/10/17 at 21:00 Magnesium Oxide (Mag-Ox 400) 400 mg BID PO Last administered on 01/14/17 21:48 ; Admin Dose 400 MG; Start 01/10/17 at 21:00 Tamsulosin HCl (Flomax) 0.8 mg HS PO Last administered on 01/14/17 21:48; Admin Dose 0.8 MG; Start 01/10/17 at 21:00 Tramadol HCl (Ultram) 50 mg Q6 PO Last administered on 01/15/17 06:08; Admin Dose 50 MG; Start 01/10/17 at 18:00 Memantine (Namenda) 10 mg HS PO ; Start 01/10/17 at 21:00 Pantoprazole (Protonix Tab) 40 mg DAILY@06 PO Last administered on 01/15/17 06 :07; Admin Dose 40 MG; Start 01/10/17 at 22:00 Valsartan (Diovan) 160 mg DAILY PO Last administered on 01/13/17 09:28; Admin Dose 160 MG; Start 01/10/17 at 18:00 Allopurinol (Zyloprim) 100 mg DAILY PO Last administered on 01/14/17 09:00; Admin Dose 100 MG; Start 01/11/17 at 09:00 Azelastine HCl 2 spray 2 spray BID NASAL Last administered on 01/14/17 09:01; Admin Dose 2 SPRAY; Start 01/10/17 at 21:00 Sodium Chloride (NS) 1,000 ml @ 40 mls/hr Q24H IV Last administered on 06:20; Admin Dose 40 MLS/HR; Start 01/10/17 at 17:00 Ondansetron HCl (Zofran Inj) 4 mg Q6H PRN IV NAUSEA AND/OR VOMITING; Start at 17:00 Acetaminophen (Tylenol Tab) 650 mg Q6H PRN PO PAIN LEVEL 1-3 OR FEVER; Start at 17:00 Acetaminophen/ Hydrocodone Bitart (Evarts (7.5-325)) 1 tab Q6H PRN PO PAIN LEVEL 4-6; Start 01/10/17 at 17:00 Miscellaneous Information 1 ea NOTE XX ; Start 01/10/17 at 18:00 Glucose (Glutose) 15 gm Q15M PRN PO DECREASED GLUCOSE; Start 01/10/17 at 18:00 Glucose (Glutose) 22.5 gm Q15M PRN PO DECREASED GLUCOSE; Start 01/10/17 at 18: 00 Dextrose (D50w Syringe) 25 ml Q15M PRN IV DECREASED GLUCOSE; Start 01/10/17 at 18:00 Dextrose (D50w Syringe) 50 ml Q15M PRN IV DECREASED GLUCOSE; Start 01/10/17 at 18:00 Glucagon (Glucagen) 1 mg Q15M PRN IM DECREASED GLUCOSE; Start 01/10/17 at 18:00 Glucose (Glutose) 15 gm Q15M PRN BUCCAL DECREASED GLUCOSE; Start 01/10/17 at 18 :00 Bisacodyl (Dulcolax) 5 mg DAILY PRN PO CONSTIPATION Last administered on 09:28; Admin Dose 5 MG; Start 01/11/17 at 15:30 Magnesium Hydroxide (Milk Of Mag) 30 ml DAILY PRN PO CONSTIPATION Last administered on 01/14/17 09:06; Admin Dose 30 ML; Start 01/11/17 at 15:30 Trazodone HCl (Desyrel) 50 mg HS PO Last administered on 01/14/17 21:48; Admin Dose 50 MG; Start 01/11/17 at 21:00 Simethicone (Mylicon) 80 mg TID PRN PO DISTENSION/GAS/BLOATING; Start 01/11/17 at 15:30 Polyethylene Glycol (Miralax) 17 gm DAILY PO Last administered on 01/14/17 09: 01; Admin Dose 17 GM; Start 01/12/17 at 14:00 Clindamycin HCl (Cleocin) 300 mg Q6 PO Last administered on 01/15/17 06:07; Admin Dose 300 MG; Start 01/14/17 at 12:00 KALEY DA SILVA MD January 15, 2017 08:34
[2017-01-15] MEDS ORDERED: CLIN-73 PO (08:40)
--- NOTE | 2017-01-15 08:45 | PN ---
Date/Time of Note Date/Time of Note DATE: 01/15/17 TIME: 08:43 Assessment/Plan Lines/Catheters IV Catheter Type (from Nrsg): Saline Lock Jackson in Place (from Nrsg): No Assessment/Plan Assessment/Plan Stable s/p left TKA -pain meds as needed -continue clindamycin 300mg PO QID as outpatient -resume HH PT -discharge home today -follow up in the office in 1 week Subjective 24 Hr Interval Summary No acute overnight events. Doing much better overall. WBC improving and patient has remained afebrile. Started on PO clindamycin yesterday. Denies significant knee pain. CT showed no acute findings, will need outpatient follow up. Stable for discharge home today. Exam/Review of Systems Vital Signs Vitals Vital Signs Date Time Temp Pulse Resp B/P Pulse Ox O2 Delivery O2 Flow Rate FiO2 01/15/17 07:35 98.0 58 19 117/65 98 01/13/17 09:33 Room Air Intake and Output 01/14/17 01/14/17 01/15/17 14:59 22:59 06:59 Intake Total 200 ml 960 ml 420 ml Output Total 700 ml 450 ml Balance 200 ml 260 ml -30 ml Exam Free Text/Dictation Dressing dry Incision clean, dry, and intact without redness or drainage Thigh soft 5/5 Quadriceps, Tibialis Anterior, EHL, Gastroc, Soleus, Peroneals Normal sensation Palpable DT/PT, CR <2 sec No distal edema Results Result Diagram: 01/15/17 0435 01/15/17 0435 JAYSHREE BENITEZ PA-C January 15, 2017 08:45
[2017-01-15] MEDS: VALSARTAN 160 MG TAB PO SCH (08:49)
[2017-01-15] MEDS: DOCUSATE SODIUM 250 MG CAP PO SCH (08:53)
[2017-01-15] MEDS: ASPIRIN (EC) 325 MG TAB PO SCH (08:53)
[2017-01-15] MEDS: MAGNESIUM OXIDE 400 MG TAB PO SCH (08:53)
[2017-01-15] MEDS: POLYETHYLENE GLYCOL 17 GM PACKET PO SCH (08:54)
[2017-01-15] MEDS: AZELASTINE 30 ML NAS SPRAY NASAL SCH (08:56)
[2017-01-15] MEDS: ALLOPURINOL 100 MG TAB PO SCH (08:56)
[2017-01-15] MEDS: MAGNESIUM HYDROXIDE 30ML CUP PO PRN (09:32)
--- NOTE | 2017-01-15 10:30 | RADRPT ---
Echocardiogram Report Patient Name: DIANA HYATT Gender: Male Date: 1930 Study Date: 15-Jan-2017 Composition Floor Layer: [facility] Location: 424 Ref. Physician: NAZ DEL RIO Quality: Adequate Procedures: Transthoracic echocardiogram with complete 2D, M-Mode, and doppler examination. Indications: STREP ANGINOSUS BACTEREMIA, R/O SBE. 2D/M Mode Doppler Measurement Value Normal Ranges Measurement Value Normal Ranges LVIDd 2D 4.9 3.5 - 5.6 cm AV Peak Elijah 1.2 m/sec LVIDs 2D 3.0 2.1 - 4.1 cm AV Peak PG 6.0 mmHg LVPWd 2D 1.3 0.6 - 1.1 cm LVOT Peak Elijah 1.0 m/sec IVSd 2D 1.3 0.6 - 1.1 cm LVOT Peak PG 3.9 mmHg AoR Diam 2D 3.0 2.0 - 3.7 cm MV E Peak Elijah 0.7 m/sec EDV 2D 110.4 cm3 MV A Peak Elijah 0.8 m/sec ESV 2D 26.4 cm3 MV E/A 0.9 LA Dimen 2D 4.5 2.3 - 4.0 cm MV Decel Time 275 msec MV Decel Mccone 2 MV E/A 0.9 Findings Left Ventricle: Normal left ventricular systolic function. Normal left ventricular cavity size. Mild concentric left ventricular hypertrophy. Ejection fraction is visually estimated at 65 %. Tissue Doppler/Mitral Doppler indices are within normal limits. Right Ventricle: Normal right ventricular size. Normal right ventricular systolic function. Left Atrium: There is mild enlargement of left atrium. Right Atrium: The right atrium is normal in size. Mitral Valve: Mild mitral annular calcification. Trace mitral regurgitation. Aortic Valve: Aortic sclerosis without stenosis. Trileaflet aortic valve. No aortic regurgitation. Tricuspid Valve: Normal appearance of the tricuspid valve. Unable to obtain RVSP due to minimal presence of tricuspid regurgitation. There is trace tricuspid regurgitation. Pulmonic Valve: Pulmonic valve not well visualized. No evidence of pulmonic regurgitation. Pericardium: Normal pericardium with no significant pericardial effusion. Aorta: Normal aortic root. IVC: Normal size and normal respiratory collapse consistent with normal right atrial pressure. Conclusions Normal left ventricular systolic function. Normal left ventricular cavity size. Mild concentric left ventricular hypertrophy. Ejection fraction is visually estimated at 65 %. Tissue Doppler/Mitral Doppler indices are within normal limits. There is mild enlargement of left atrium. Normal right ventricular size. Normal right ventricular systolic function. Aortic sclerosis without stenosis. Trileaflet aortic valve. No aortic regurgitation. No significant valvular stenosis or regurgitation seen of remaining visualized valves. No Vegetation, masses, or thrombi seen. Electronically Signed By: David Goins 15-Jan-2017 10:29:58 -0700 Patient Name: DIANA HYATT Study Date: 15-Jan-2017 [id number]
== END 2017-01-15 15:20 | disposition home or self-care (01) | DRG 872 ==
LOC: E/R 12:51 → MS1 13:41
PROVIDERS: ADMIT Internal Medicine; ATTEND Internal Medicine
PROC: 0S9D30Z Drainage of Left Knee Joint with Drainage Device, Percutaneous Approach (ICD-10-PCS; principal; 2017-01-10)
DX: A40.8 Other streptococcal sepsis (principal); N39.0 Urinary tract infection, site not specified; E11.9 Type 2 diabetes mellitus without complications; I10 Essential (primary) hypertension; B95.4 Other streptococcus as the cause of diseases classified elsewhere; N40.0 Benign prostatic hyperplasia without lower urinary tract symptoms; M10.9 Gout, unspecified; E78.5 Hyperlipidemia, unspecified; E03.9 Hypothyroidism, unspecified; K21.9 Gastro-esophageal reflux disease without esophagitis; R94.5 Abnormal results of liver function studies; R30.0 Dysuria; R91.1 Solitary pulmonary nodule; R50.82 Postprocedural fever; Z96.652 Presence of left artificial knee joint
CPT/HCPCS: 36415; 71010; 71250; 74176; 76700; 80048; 80053; 80076; 80202; 81001; 81003; 82962; 83690; 83735; 84100; 85025; 85610; 85730; 87040; 87086; 93306; 93970; 96374; J1815; J2185; J3370; J7030; J7050

== ENCOUNTER → 2017-01-10 | Outpatient (CLI) | payer MEDICARE, OTHER ==
[~2017-01-10] MED LIST changes: +ALLO100T PO; +ASPI325T32 PO; +AZIL1TAB2 PO; -BUPIVACAINE LIPOSOME/PF 266 MG/20 ML VIAL INFIL ONE; -CEFAZOLIN 2GM/50 ML (PMX) 50 ML X1 BEFORE INCISION IVPB ONE; -CELECOXIB 400 MG PO X1 DOSE PO ONE; +CLIN-73 PO; +DOCU250C58 PO; +EMPA1TAB11 PO; +ESOM40CA PO; -EXPAREL NOTE (BUPIVICAINE LIPOSOMAL) XX SCH; +HYDR-905 PO; +LATA2.5D2 BOTH EYES; +LEVO100T82 PO; +LINA145C PO; +MAGN400T27 PO; +MEMA21CA PO; +METH500T PO; -PAIN COCKTAIL-CEFUROXIME IRR ONE; -PREGABALIN 300 MG PO X1 PO ONE; +SIMV20TA PO; +SPIR25TA PO; +TAMS0.4C2 PO; +TRAM50TA2 PO; -TRANEXAMIC ACID 920 MG in SOD CHLORIDE 0.9% 100 ML IVPB ONE; -TRANEXAMIC ACID 920 MG in SOD CHLORIDE 0.9% 90.8 ML IV ONE; -oxyCODONE (CR) 10 MG TAB [oxyCONTIN] X1 DOSE PO ONE; -traMADOL 50 MG TAB X 1 DOSE PO ONE
--- NOTE | 2017-01-10 12:22 | RADRPT ---
PROCEDURE: XR left knee. CLINICAL INDICATION: Knee pain. TECHNIQUE: AP and lateral weightbearing views are available for review. COMPARISON: 12/31/2016 FINDINGS: There are anterior skin tricia. There is a total knee replacement. There is no evidence of loosening of the prosthesis. There is no evidence of hardware failure. The osseous structures are normal in mineralization, architecture and alignment No acute fracture or dislocation is seen.No osseous lesions are identified. The soft tiss ues are unremarkable . there is a small suprapatellar joint effusion. IMPRESSION: Unremarkable total knee replacement. Small suprapatellar joint effusion RPTAT: HGDB .Devin Thomas MD, MD Date Time Electronically viewed and signed by .Devin Thomas MD, on 01/10/2017 12:22 .B/
--- NOTE | 2017-01-10 12:43 | HKNOTE ---
DATE OF SERVICE: 01/10/2017 INTERVAL HISTORY: The patient presents today for his first postoperative evaluation. He is 10 days status post left total knee arthroplasty. He has been having some intermittent fevers and chills up to 100 to 101 with dysuria and increased urinary frequency. He denies any significant knee pain. There is no erythema, pus, or drainage from the left knee. His main complaint today is that he has trouble with urination. Home health was obtaining some blood work as well as urinalysis. We did review some labs today that showed an elevated white blood cell count of 19 which is up from 14 a few days ago as well as a urinalysis which is concerning for a urinary infection. In regards to his left knee, he is doing very well overall. He is doing home health PT. He is taking aspirin for DVT prophylaxis. He is here today for his first postoperative evaluation. PHYSICAL EXAMINATION: Today, he is alert and oriented x4 and in no acute distress. He is ambulating with a front-wheeled walker. Exam of his left knee demonstrates it to be clean, dry, and intact. He has mild effusion. There is no erythema or warmth noted. Range of motion is 0 to 90 degrees. Varus and valgus forces are stable. Compartments are soft. Homans sign is negative. He is neurovascularly intact distally. IMAGING: X-rays of the left knee were obtained today and reviewed by me. They demonstrate good anatomic alignment with no fracture or dislocation identified. ASSESSMENT: Ten days status post left total knee arthroplasty. PLAN: In regards to his left knee. The tricia were removed today and Steri- Strips were applied. He is to continue with physical therapy and eventually transition to an outpatient physical therapy program. Additionally, he is to continue aspirin twice daily for 6 weeks for DVT prophylaxis. Given the elevated white blood cell count as well as the dysuria and urinalysis that is concerning for urinary tract infection, we spoke to Dr. Cruz who followed the patient along in the hospital and we both feel that he needs to be admitted for rule out urosepsis. The patient did have a left knee aspiration done today and will send off the synovial analysis to rule out any infection, although suspicion is low at this time. The patient will go to the emergency department at [facility] where he will be admitted and given intravenous antibiotic therapy. This was discussed with the patient's family members at length today who demonstrate understanding. Additionally, the ER has been notified. In regards to the left knee, we will see him back in 4 weeks for a repeat evaluation. Dictated By: JAYSHREE ZAMBRANO for DINO JETER/ELVER Conf#: [id number] DID#: [id number] MTDD
[2017-01-10 17:12] LABS: LYMPHOCYTES,SYNOVIAL FLUID 7; NEUTROPHILS,SYNOVIAL FLUID 90 % (0-25)
[2017-01-10 17:13] LABS: SYNOVIAL FLUID CLARITY Bloody; SYNOVIAL FLUID COLOR Red; SYNOVIAL FLUID TYPE Left Knee; SYNOVIAL FLUID VOLUME 7 mL (0-3.5); SYNOVIAL FLUID WBC 13142 /cmm (0-150)
== END | disposition home or self-care (01) ==
LOC: HKI 10:18
PROVIDERS: ATTEND Orthopaedic Surgery
DX: Z47.1 Aftercare following joint replacement surgery (principal); Z96.652 Presence of left artificial knee joint; Z48.02 Encounter for removal of sutures; D72.829 Elevated white blood cell count, unspecified; R30.0 Dysuria
CPT/HCPCS: 87070; 89051

== ENCOUNTER → 2017-02-19 | Outpatient (CLI) | payer MEDICARE, OTHER ==
[~2017-02-19] MED LIST changes: -ALLO100T PO; -ASPI325T32 PO; +CLIN-73 PO; -EMPA1TAB11 PO; -HYDR-905 PO; +LATA2.5D2 BOTH EYES; -MEMA21CA PO; -METH500T PO; -SPIR25TA PO; +TAMS0.4C2 PO
== END | disposition home or self-care (01) ==
LOC: HKI 09:32
PROVIDERS: ATTEND Orthopaedic Surgery
DX: Z47.1 Aftercare following joint replacement surgery (principal); Z96.652 Presence of left artificial knee joint; M17.12 Unilateral primary osteoarthritis, left knee; E78.5 Hyperlipidemia, unspecified; H40.9 Unspecified glaucoma

== ENCOUNTER → 2017-04-02 | Outpatient (CLI) | payer MEDICARE, OTHER ==
--- NOTE | 2017-04-02 17:23 | RADRPT ---
PROCEDURE: Left knee radiographs. CLINICAL INDICATION: Left knee pain. Postop. TECHNIQUE: Three views. Weight bearing. Frontal, lateral, and patellar view. COMPARISON: 01/10/2017 area FINDINGS: There is no fracture or dislocation. Anterior skin tricia have been removed. 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 There is no lytic or blastic lesion. There is no joint effusion. IMPRESSION: 1. Satisfactory postoperative appearance of the left knee. RPTAT: QQ .Greg Fritz MD, Date Time Electronically viewed and signed by .Greg Fritz MD, on 04/02/2017 17:22 .R/
== END | disposition home or self-care (01) ==
LOC: HKI 10:30
PROVIDERS: ATTEND Orthopaedic Surgery
DX: M25.561 Pain in right knee (principal); M17.11 Unilateral primary osteoarthritis, right knee; Z96.652 Presence of left artificial knee joint